=== PATIENT | male | born 1945 | race Caucasian/White ===

== ENCOUNTER 2018-05-03 15:57 | Emergency (ER) | payer MEDICARE, OTHER, SELFPAY ==
[2018-05-03 16:30] VITALS: BP 155/87; PULSE 76; RESP 16; TEMP 36.2; O2SAT 98
--- NOTE | 2018-05-03 19:52 | ED.GIBLEED ---
HPI - GI Bleed General Chief complaint: GI Bleed Stated complaint: RECTAL BLEEDING Time Seen by Provider: 05/03/18 16:09 Source: patient and family Mode of arrival: ambulatory Limitations: no limitations History of Present Illness HPI Narrative: 72-year-old male with history of GI bleed due to diverticulosis presents to the emergency department with his for evaluation of rectal bleed. The patient started developing bright red blood around his stool few days ago in the absence of pain. He does not take blood thinners. He called his sewage plant supervisor who recommended a transition to a clear liquid diet, stating this would likely help symptoms improved. He has developed an increasing amount of liquidy stool and had increased bright red blood per rectum over the course of the day. He contacted his sewage plant supervisor whom instructed him to present to the closest emergency department. He continues to deny any pain, shortness of breath or dizziness but does feel a bit fuzzy and lightheaded. Related Data Previous Rx's Medication Instructions Recorded ezetimibe [Zetia] 10 mg PO QDAY #90 tab 03/23/17 metoprolol succinate [Toprol XL] 50 mg PO QDAY #90 tab 04/17/17 perphenazine-amitriptyline 1 tab PO BID #100 tab 04/30/17 pravastatin [Pravachol] 40 mg PO HS #90 tab 05/10/17 pantoprazole [Protonix] 40 mg PO BID 30 Days #60 tab 05/03/18 Allergies Allergy/AdvReac Type Severity Reaction Status Date / Time rosuvastatin [ROSUVASTATIN] Allergy Unknown MYALGIAS Verified 05/03/18 16:35 Review of Systems Review of Systems All systems reviewed & are unremarkable except as noted in HPI and below Constitutional Denies chills, Denies fever(s), Denies lethargy and Denies weakness Eyes Denies change in vision, Denies eye discharge, Denies irritation and Denies loss of vision ENT Ears, Nose, Mouth, and Throat: Denies change in voice, Denies neck pain and Denies sore throat Cardiovascular Denies chest pain, Denies irregular heart rhythm, Denies lightheadedness, Denies palpitations, Denies dyspnea, Denies dyspnea on exertion and Denies orthopnea Respiratory Denies cough, Denies dyspnea, Denies dyspnea on exertion and Denies wheezing Gastrointestinal Gastrointestinal: Denies abdominal pain, Reports hematochezia, Denies change in bowel habits, Denies diarrhea, Denies nausea and Denies vomiting Genitourinary Denies hematuria, Denies flank pain, Denies urinary incontinence and Denies urinary urgency Musculoskeletal Denies neck pain Integumentary/Breasts Denies pruritus, Denies erythema, Denies rash and Denies wounds Neurologic Denies confusion, Denies loss of vision and Denies weakness Psychiatric Denies anxiety, Denies confusion, Denies depression, Denies homicidal ideation and Denies suicidal ideation Endocrine Denies palpitations Hematologic/Lymphatic Denies easy bruising Allergic/Immunologic Denies wheezing [facility] Medical History Aortic valve insufficiency (Acute) Depression (Acute) Diverticulosis (Acute) High cholesterol (Acute) Social History Smoking Status: Never smoker Exam Narrative Exam Narrative: 72-year-old male resting comfortably in no obvious distress Initial Vital Signs Initial Vital Signs: Vital Signs Temperature 97.1 F L 05/03/18 16:30 Pulse Rate 76 05/03/18 16:30 Respiratory Rate 16 05/03/18 16:30 Blood Pressure 155/87 H 05/03/18 16:30 Pulse Oximetry 98 05/03/18 16:30 Const General: cooperative and well developed Nutritional Appearance: well nourished Orientation: alert, awake, oriented x3 and not confused [facility] Head: normocephalic and atraumatic Ears: external ears normal and TM's normal bilaterally Nose: external nose normal and No nasal discharge Face and sinus: sinuses nontender, face symmetric, no sinus tenderness and No dry mucous membranes Mouth: oral mucosae normal and moist mucous membranes Teeth and gingiva: dentition normal Throat: tonsils normal and uvula midline Eyes General: appearance normal, both eyes and all related structures Eyelids: eyelids normal Conjunctivae: conjunctivae normal Sclera: sclerae normal Pupils: PERRL EOM: EOM intact bilaterally Neck Neck: normal visual inspection, trachea midline, No lymphadenopathy, No midline deformity and No JVD Lymphatic: No lymphedema Chest Chest: normal inspection of the chest Resp Effort & Inspection: normal respiratory effort, able to speak in complete sentences, no respiratory distress and no use of accessory muscles Auscultation: clear to auscultation bilaterally, no rales, no rhonchi and no wheezes Cardio Rate: regular rate Rhythm: regular rhythm Heart Sounds: no click, no gallops, no murmurs and no rubs Pulses: normal peripheral pulses GI Inspection: non-distended Palpation: soft, no hepatosplenomegaly, No guarding, No pulsatile mass and No tender Auscultation: normal bowel sounds Rectal Exam: heme positive stool Back/Spine/Pelvis Back: No CVA tenderness Cervical Spine: cervical ROM normal and No pain with cervical ROM Thoracic/Lumbar Spine: thoracic and lumbar spine normal to inspection Skin General: no rashes or lesions noted, No jaundice and No petechiae Neuro General: alert, oriented x3, gait normal and no focal motor deficits Speech: speech normal Extrem General: full ROM, no clubbing, cyanosis or edema, no pedal edema and no calf tenderness Psych Appearance: well kempt Mental Status: mental status grossly normal Attitude: cooperative Thought Content: normal and suicidality Judgment: judgment good Course Orders Ordered: ED Orders 05/03/18 20:22 Complete Blood Count AUTO DIFF Stat Comprehensive Metabolic Panel Stat Partial Thromboplastin Time Stat Prothrombin Time INR Stat Type and Screen Stat Discontinued Medications Ondansetron HCl (Zofran) 4 mg IV NOW ONE Stop: 05/03/18 20:11 Last Admin: 05/03/18 20:30 Dose: 4 mg Pantoprazole Sodium (Protonix) 40 mg IV NOW ONE Stop: 05/03/18 20:11 Last Admin: 05/03/18 20:30 Dose: 40 mg Reevaluation(s) Reevaluation #1: Patient continues to be asymptomatic and department and denies dizziness, weakness or lightheadedness. Vital Signs - 8 hr 05/03/18 20:55 05/03/18 21:29 05/03/18 21:30 Pulse Rate 71 73 71 Respiratory Rate 12 11 L 12 Blood Pressure [Right Arm] 161/79 H 161/79 H 150/80 H Pulse Oximetry 96 94 94 05/03/18 22:30 Pulse Rate 71 Respiratory Rate 14 Blood Pressure [Right Arm] 150/85 H Pulse Oximetry 95 MDM - GI Bleed Differential Diagnosis Likely Chandrika-Rdz syndrome, Upper gastrointestinal hemorrhage, Lower gastrointestinal hemorrhage and hematochezia Medical Records Attestation: I reviewed the patient's medical records. Lab Data Result diagrams: 05/03/18 20:22 08/24/18 20:22 Lab Results 05/03/18 05/03/18 05/03/18 Range/Units 20:22 20:22 20:22 WBC 5.6 (4.5-11.0) X10^3/uL RBC 4.55 (4.5-5.9) X10^6/uL Hgb 14.0 (13.5-17.5) g/dL Hct 40.4 L (41-53) % MCV 88.8 (80-100) fL MCH 30.6 (26-34) PG MCHC 34.5 (30-36) % RDW 13.1 (11.6-14.8) % Plt Count 225 (150-400) X10^3/uL Neut % (Auto) 55.2 (50-75) % Lymph % (Auto) 30.0 (25-40) % [place] % (Auto) 11.2 (3-14) % Eos % (Auto) 2.7 (2-4) % Baso % (Auto) 0.9 (0-2) % Neut # (Auto) 3100 (6445-2381) /uL PT 11.9 (10.1-12.7) SECONDS INR 1.1 (0.9-1.3) APTT 30 (26.4-36.2) SECONDS Sodium 143 (137-145) mmol/L Potassium 3.8 (3.4-5.1) mmol/L Chloride 104 (98-107) mmol/L Carbon Dioxide 30 (22-32) mmol/L BUN 14 (9-20) mg/dL Creatinine 0.90 (0.66-1.25) mg/dL Estimated GFR > 60.0 (>60) mL/min BUN/Creatinine Ratio 15.6 (6-22) Glucose 105 (80-110) mg/dL Calcium 9.0 (8.4-10.2) mg/dL Total Bilirubin 0.7 (0.2-1.3) mg/dL AST 34 (17-59) IU/L ALT 41 (21-72) IU/L Alkaline Phosphatase 57 (38-126) U/L Total Protein 6.5 (6.3-8.2) g/dL Albumin 4.0 (3.5-5.0) g/dL Globulin 2.5 (1.7-4.1) g/dL Albumin/Globulin Ratio 1.6 (1.0-2.8) Blood Type Antibody Screen 05/03/18 Range/Units 20:22 WBC (4.5-11.0) X10^3/uL RBC (4.5-5.9) X10^6/uL Hgb (13.5-17.5) g/dL Hct (41-53) % MCV (80-100) fL MCH (26-34) PG MCHC (30-36) % RDW (11.6-14.8) % Plt Count (150-400) X10^3/uL Neut % (Auto) (50-75) % Lymph % (Auto) (25-40) % [place] % (Auto) (3-14) % Eos % (Auto) (2-4) % Baso % (Auto) (0-2) % Neut # (Auto) (9668-6088) /uL PT (10.1-12.7) SECONDS INR (0.9-1.3) APTT (26.4-36.2) SECONDS Sodium (137-145) mmol/L Potassium (3.4-5.1) mmol/L Chloride (98-107) mmol/L Carbon Dioxide (22-32) mmol/L BUN (9-20) mg/dL Creatinine (0.66-1.25) mg/dL Estimated GFR (>60) mL/min BUN/Creatinine Ratio (6-22) Glucose (80-110) mg/dL Calcium (8.4-10.2) mg/dL Total Bilirubin (0.2-1.3) mg/dL AST (17-59) IU/L ALT (21-72) IU/L Alkaline Phosphatase (38-126) U/L Total Protein (6.3-8.2) g/dL Albumin (3.5-5.0) g/dL Globulin (1.7-4.1) g/dL Albumin/Globulin Ratio (1.0-2.8) Blood Type A Positive Antibody Screen Negative [facility] Narrative Medical decision making narrative: Patient presents with painless rectal bleeding. He has had bleeding for 3 days and denies systemic symptoms such as dizziness, weakness, lightheadedness or shortness of breath. His H&H is stable and vital signs are stable. He has an established relationship with a sewage plant supervisor and follow-up with this physician is reasonable Discharge Plan Departure Patient Disposition: Home Clinical Impression: Acute gastrointestinal bleeding Discharge Date/Time: 05/03/18 22:56 Interventions: ED Discharge Assessment Last Done: 05/03/18 23:35 Instructions: DI for Rectal Bleeding Activity Restrictions/Additional Instructions: 1. Drink plenty of fluids with frequent small sips. 2. For the next 24 hours a clear liquid diet is advised. After that please employ a brat diet which would include bananas, rice, apples, toast. 3. Please take medications as directed. 4. Please follow-up with your sewage plant supervisor early next week. Call the office for an appointment, and let them know your in the emergency department so 5. Please return to the emergency Department for any worsening or persistent symptoms, such as increasing pain or fever. Prescriptions: New pantoprazole [Protonix] 40 mg tablet,delayed release (DR/EC) 40 mg PO BID 30 Days Qty: 60 RF: 0 No Action ezetimibe [Zetia] 10 MG tablet 10 mg PO QDAY Qty: 90 RF: 1 metoprolol succinate [Toprol XL] 50 MG tablet extended release 24 hr 50 mg PO QDAY Qty: 90 RF: 0 perphenazine-amitriptyline 2 MG/25 MG tablet 1 tab PO BID Qty: 100 RF: 0 pravastatin [Pravachol] 40 MG tablet 40 mg PO HS Qty: 90 RF: 0 Referrals: Joseph Can MD [Primary Care Provider] -
[2018-05-03] MEDS: PANTOPRAZOLE 40 MG VIAL IV (20:30)
[2018-05-03] MEDS: ONDANSETRON 4 MG/2 ML INJ IV (20:30)
[2018-05-03 20:36] LABS: Add Manual Diff / Slide Review NO; Basophils Percent Auto 0.9 % (0-2); Eosinophils Percent Auto 2.7 % (2-4); Hematocrit 40.4 % (41-53); Mean Corpuscular HGB Conc 34.5 % (30-36); Mean Corpuscular Hemoglobin 30.6 PG (26-34); Mean Corpuscular Volume 88.8 fL (80-100); Monocytes Percent Auto 11.2 % (3-14); Neutrophils Absolute Auto 3100 /uL (3000-5900); Neutrophils Percent Auto 55.2 % (50-75); Platelet Count 225 X10^3/uL (150-400); Red Blood Cell Count 4.55 X10^6/uL (4.5-5.9); Red Cell Distribution Width 13.1 % (11.6-14.8); White Blood Cell Count 5.6 X10^3/uL (4.5-11.0)
[2018-05-03 20:41] LABS: INR 1.1 (0.9-1.3); Prothrombin Time 11.9 SECONDS (10.1-12.7)
[2018-05-03 20:44] LABS: PTT Partial Thromboplastin Tim 30 SECONDS (26.4-36.2)
[2018-05-03 20:45] LABS: Alanine Aminotransferase 41 IU/L (21-72); Albumin Globulin Ratio 1.6 (1.0-2.8); Alkaline Phosphatase 57 U/L (38-126); Aspartate Aminotransferase 34 IU/L (17-59); BUN Creatinine Ratio 15.6 (6-22); Bilirubin Total 0.7 mg/dL (0.2-1.3); Blood Urea Nitrogen 14 mg/dL (9-20); Carbon Dioxide 30 mmol/L (22-32); Chloride 104 mmol/L (98-107); Estimated Glomerular Filt Rate > 60.0 mL/min (>60); Globulin 2.5 g/dL (1.7-4.1); Glucose 105 mg/dL (80-110); HEMOLYSIS < 15 (0-50); Potassium 3.8 mmol/L (3.4-5.1); Sodium 143 mmol/L (137-145); Total Protein 6.5 g/dL (6.3-8.2)
[2018-05-03 20:55] VITALS: BP 161/79; PULSE 71; RESP 12; O2SAT 96
--- NOTE | 2018-05-03 21:10 | ED_ITS ---
HPI - GI Bleed General Chief complaint: GI Bleed Stated complaint: RECTAL BLEEDING Time Seen by Provider: 05/03/18 16:09 Source: patient and family Mode of arrival: ambulatory Limitations: no limitations History of Present Illness HPI Narrative: 72-year-old male with history of GI bleed due to diverticulosis presents to the emergency department with his for evaluation of rectal bleed. The patient started developing bright red blood around his stool few days ago in the absence of pain. He does not take blood thinners. He called his reservoir engineering consultant who recommended a transition to a clear liquid diet, stating this would likely help symptoms improved. He has developed an increasing amount of liquidy stool and had increased bright red blood per rectum over the course of the day. He contacted his reservoir engineering consultant whom instructed him to present to the closest emergency department. He continues to deny any pain, shortness of breath or dizziness but does feel a bit fuzzy and lightheaded. Related Data Previous Rx's Medication Instructions Recorded ezetimibe [Zetia] 10 mg PO QDAY #90 tab 03/23/17 metoprolol succinate [Toprol XL] 50 mg PO QDAY #90 tab 04/17/17 perphenazine-amitriptyline 1 tab PO BID #100 tab 04/30/17 pravastatin [Pravachol] 40 mg PO HS #90 tab 05/10/17 pantoprazole [Protonix] 40 mg PO BID 30 Days #60 tab 05/03/18 Allergies Allergy/AdvReac Type Severity Reaction Status Date / Time rosuvastatin [ROSUVASTATIN] Allergy Unknown MYALGIAS Verified 05/03/18 16:35 Review of Systems Review of Systems All systems reviewed & are unremarkable except as noted in HPI and below Constitutional Denies chills, Denies fever(s), Denies lethargy and Denies weakness Eyes Denies change in vision, Denies eye discharge, Denies irritation and Denies loss of vision ENT Ears, Nose, Mouth, and Throat: Denies change in voice, Denies neck pain and Denies sore throat Cardiovascular Denies chest pain, Denies irregular heart rhythm, Denies lightheadedness, Denies palpitations, Denies dyspnea, Denies dyspnea on exertion and Denies orthopnea Respiratory Denies cough, Denies dyspnea, Denies dyspnea on exertion and Denies wheezing Gastrointestinal Gastrointestinal: Denies abdominal pain, Reports hematochezia, Denies change in bowel habits, Denies diarrhea, Denies nausea and Denies vomiting Genitourinary Denies hematuria, Denies flank pain, Denies urinary incontinence and Denies urinary urgency Musculoskeletal Denies neck pain Integumentary/Breasts Denies pruritus, Denies erythema, Denies rash and Denies wounds Neurologic Denies confusion, Denies loss of vision and Denies weakness Psychiatric Denies anxiety, Denies confusion, Denies depression, Denies homicidal ideation and Denies suicidal ideation Endocrine Denies palpitations Hematologic/Lymphatic Denies easy bruising Allergic/Immunologic Denies wheezing [facility] Medical History Aortic valve insufficiency (Acute) Depression (Acute) Diverticulosis (Acute) High cholesterol (Acute) Social History Smoking Status: Never smoker Exam Narrative Exam Narrative: 72-year-old male resting comfortably in no obvious distress Initial Vital Signs Initial Vital Signs: Vital Signs Temperature 97.1 F L 05/03/18 16:30 Pulse Rate 76 05/03/18 16:30 Respiratory Rate 16 05/03/18 16:30 Blood Pressure 155/87 H 05/03/18 16:30 Pulse Oximetry 98 05/03/18 16:30 Const General: cooperative and well developed Nutritional Appearance: well nourished Orientation: alert, awake, oriented x3 and not confused [facility] Head: normocephalic and atraumatic Ears: external ears normal and TM's normal bilaterally Nose: external nose normal and No nasal discharge Face and sinus: sinuses nontender, face symmetric, no sinus tenderness and No dry mucous membranes Mouth: oral mucosae normal and moist mucous membranes Teeth and gingiva: dentition normal Throat: tonsils normal and uvula midline Eyes General: appearance normal, both eyes and all related structures Eyelids: eyelids normal Conjunctivae: conjunctivae normal Sclera: sclerae normal Pupils: PERRL EOM: EOM intact bilaterally Neck Neck: normal visual inspection, trachea midline, No lymphadenopathy, No midline deformity and No JVD Lymphatic: No lymphedema Chest Chest: normal inspection of the chest Resp Effort & Inspection: normal respiratory effort, able to speak in complete sentences, no respiratory distress and no use of accessory muscles Auscultation: clear to auscultation bilaterally, no rales, no rhonchi and no wheezes Cardio Rate: regular rate Rhythm: regular rhythm Heart Sounds: no click, no gallops, no murmurs and no rubs Pulses: normal peripheral pulses GI Inspection: non-distended Palpation: soft, no hepatosplenomegaly, No guarding, No pulsatile mass and No tender Auscultation: normal bowel sounds Rectal Exam: heme positive stool Back/Spine/Pelvis Back: No CVA tenderness Cervical Spine: cervical ROM normal and No pain with cervical ROM Thoracic/Lumbar Spine: thoracic and lumbar spine normal to inspection Skin General: no rashes or lesions noted, No jaundice and No petechiae Neuro General: alert, oriented x3, gait normal and no focal motor deficits Speech: speech normal Extrem General: full ROM, no clubbing, cyanosis or edema, no pedal edema and no calf tenderness Psych Appearance: well kempt Mental Status: mental status grossly normal Attitude: cooperative Thought Content: normal and suicidality Judgment: judgment good Course Orders Ordered: ED Orders 05/03/18 20:22 Complete Blood Count AUTO DIFF Stat Comprehensive Metabolic Panel Stat Partial Thromboplastin Time Stat Prothrombin Time INR Stat Type and Screen Stat Discontinued Medications Ondansetron HCl (Zofran) 4 mg IV NOW ONE Stop: 05/03/18 20:11 Last Admin: 05/03/18 20:30 Dose: 4 mg Pantoprazole Sodium (Protonix) 40 mg IV NOW ONE Stop: 05/03/18 20:11 Last Admin: 05/03/18 20:30 Dose: 40 mg Reevaluation(s) Reevaluation #1: Patient continues to be asymptomatic and department and denies dizziness, weakness or lightheadedness. Vital Signs - 8 hr 05/03/18 20:55 05/03/18 21:29 05/03/18 21:30 Pulse Rate 71 73 71 Respiratory Rate 12 11 L 12 Blood Pressure [Right Arm] 161/79 H 161/79 H 150/80 H Pulse Oximetry 96 94 94 05/03/18 22:30 Pulse Rate 71 Respiratory Rate 14 Blood Pressure [Right Arm] 150/85 H Pulse Oximetry 95 MDM - GI Bleed Differential Diagnosis Likely Chandrika-Rdz syndrome, Upper gastrointestinal hemorrhage, Lower gastrointestinal hemorrhage and hematochezia Medical Records Attestation: I reviewed the patient's medical records. Lab Data Result diagrams: 05/03/18 20:22 08/24/18 20:22 Lab Results 05/03/18 05/03/18 05/03/18 Range/Units 20:22 20:22 20:22 WBC 5.6 (4.5-11.0) X10^3/uL RBC 4.55 (4.5-5.9) X10^6/uL Hgb 14.0 (13.5-17.5) g/dL Hct 40.4 L (41-53) % MCV 88.8 (80-100) fL MCH 30.6 (26-34) PG MCHC 34.5 (30-36) % RDW 13.1 (11.6-14.8) % Plt Count 225 (150-400) X10^3/uL Neut % (Auto) 55.2 (50-75) % Lymph % (Auto) 30.0 (25-40) % [place] % (Auto) 11.2 (3-14) % Eos % (Auto) 2.7 (2-4) % Baso % (Auto) 0.9 (0-2) % Neut # (Auto) 3100 (6725-8853) /uL PT 11.9 (10.1-12.7) SECONDS INR 1.1 (0.9-1.3) APTT 30 (26.4-36.2) SECONDS Sodium 143 (137-145) mmol/L Potassium 3.8 (3.4-5.1) mmol/L Chloride 104 (98-107) mmol/L Carbon Dioxide 30 (22-32) mmol/L BUN 14 (9-20) mg/dL Creatinine 0.90 (0.66-1.25) mg/dL Estimated GFR > 60.0 (>60) mL/min BUN/Creatinine Ratio 15.6 (6-22) Glucose 105 (80-110) mg/dL Calcium 9.0 (8.4-10.2) mg/dL Total Bilirubin 0.7 (0.2-1.3) mg/dL AST 34 (17-59) IU/L ALT 41 (21-72) IU/L Alkaline Phosphatase 57 (38-126) U/L Total Protein 6.5 (6.3-8.2) g/dL Albumin 4.0 (3.5-5.0) g/dL Globulin 2.5 (1.7-4.1) g/dL Albumin/Globulin Ratio 1.6 (1.0-2.8) Blood Type Antibody Screen 05/03/18 Range/Units 20:22 WBC (4.5-11.0) X10^3/uL RBC (4.5-5.9) X10^6/uL Hgb (13.5-17.5) g/dL Hct (41-53) % MCV (80-100) fL MCH (26-34) PG MCHC (30-36) % RDW (11.6-14.8) % Plt Count (150-400) X10^3/uL Neut % (Auto) (50-75) % Lymph % (Auto) (25-40) % [place] % (Auto) (3-14) % Eos % (Auto) (2-4) % Baso % (Auto) (0-2) % Neut # (Auto) (0168-9792) /uL PT (10.1-12.7) SECONDS INR (0.9-1.3) APTT (26.4-36.2) SECONDS Sodium (137-145) mmol/L Potassium (3.4-5.1) mmol/L Chloride (98-107) mmol/L Carbon Dioxide (22-32) mmol/L BUN (9-20) mg/dL Creatinine (0.66-1.25) mg/dL Estimated GFR (>60) mL/min BUN/Creatinine Ratio (6-22) Glucose (80-110) mg/dL Calcium (8.4-10.2) mg/dL Total Bilirubin (0.2-1.3) mg/dL AST (17-59) IU/L ALT (21-72) IU/L Alkaline Phosphatase (38-126) U/L Total Protein (6.3-8.2) g/dL Albumin (3.5-5.0) g/dL Globulin (1.7-4.1) g/dL Albumin/Globulin Ratio (1.0-2.8) Blood Type A Positive Antibody Screen Negative [facility] Narrative Medical decision making narrative: Patient presents with painless rectal bleeding. He has had bleeding for 3 days and denies systemic symptoms such as dizziness, weakness, lightheadedness or shortness of breath. His H&H is stable and vital signs are stable. He has an established relationship with a reservoir engineering consultant and follow-up with this physician is reasonable Discharge Plan Departure Patient Disposition: Home Clinical Impression: Acute gastrointestinal bleeding Discharge Date/Time: 05/03/18 22:56 Interventions: ED Discharge Assessment Last Done: 05/03/18 23:35 Instructions: DI for Rectal Bleeding Activity Restrictions/Additional Instructions: 1. Drink plenty of fluids with frequent small sips. 2. For the next 24 hours a clear liquid diet is advised. After that please employ a brat diet which would include bananas, rice, apples, toast. 3. Please take medications as directed. 4. Please follow-up with your reservoir engineering consultant early next week. Call the office for an appointment, and let them know your in the emergency department so 5. Please return to the emergency Department for any worsening or persistent symptoms, such as increasing pain or fever. Prescriptions: New pantoprazole [Protonix] 40 mg tablet,delayed release (DR/EC) 40 mg PO BID 30 Days Qty: 60 RF: 0 No Action ezetimibe [Zetia] 10 MG tablet 10 mg PO QDAY Qty: 90 RF: 1 metoprolol succinate [Toprol XL] 50 MG tablet extended release 24 hr 50 mg PO QDAY Qty: 90 RF: 0 perphenazine-amitriptyline 2 MG/25 MG tablet 1 tab PO BID Qty: 100 RF: 0 pravastatin [Pravachol] 40 MG tablet 40 mg PO HS Qty: 90 RF: 0 Referrals: Joseph Can MD [Primary Care Provider] -
[2018-05-03 21:29] VITALS: BP 161/79; PULSE 73; RESP 11; O2SAT 94
[2018-05-03 21:30] VITALS: BP 150/80; PULSE 71; RESP 12; O2SAT 94
--- NOTE | 2018-05-03 22:02 | PC.NURSE ---
pt has a history of diverticulosis. noticed blood streaked stool three days ago. stopped asparin, started clear liquid diet. noticed stool changed to black and is now laila red blood. pt denies: dizzyness, N/V, changes in medications, pain. pt reports this is like last time.
[2018-05-03 22:30] VITALS: BP 150/85; PULSE 71; RESP 14; O2SAT 95
== END 2018-05-03 22:56 | disposition home or self-care (01) ==
PROVIDERS: Emergency Provider Emergency Medicine; Family Provider Family Medicine; PCP Family Medicine
DX: K92.2 Gastrointestinal hemorrhage, unspecified (principal)
CPT/HCPCS: 36591; 80053; 85025; 85610; 85730; 86850; 86900; 86901; 96374; 96375; 99283; 99284; C9113; J2405

== ENCOUNTER 2018-07-22 18:09 | Emergency (ER) | payer MEDICARE, OTHER, SELFPAY ==
[2018-07-22 18:13] VITALS: BP 194/91; PULSE 88; RESP 14; TEMP 36.7; O2SAT 100; BMI 26.9
--- NOTE | 2018-07-22 19:31 | ED_ITS ---
HPI - GI Bleed General Chief complaint: GI Bleed Stated complaint: RECTAL BLEEDING Time Seen by Provider: 07/22/18 19:14 Source: patient Mode of arrival: ambulatory Limitations: no limitations History of Present Illness HPI Narrative: This is a 73-year-old male comes to the emergency department with complaint of rectal bleeding. Patient states it started today he has had 3 episodes with bowel movements. He states the bowel movements are formed but soft he has not had any abdominal pain, he has not had any lightheadedness, he has had some slight nausea but no vomiting. Patient is not any chest pain or shortness of breath. He has had similar episodes before. They suspected his bleeding was secondary to diverticulosis in the past. 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 They suggested he come to the ER for evaluation. Patient states that see has not had any fevers. He states that he saw blood in the toilet bowl as well as in the stool. He states that his watch inspector final movement thought perhaps he had a hemorrhoid that was bleeding. Patient does states he takes aspirin but does not take any other blood thinners. He takes metoprolol for blood pressure, statin for cholesterol. He has aortic stenosis and is planning to have a TAVR in the next week at [facility]. He has not had any other prior surgeries. Related Data Previous Rx's Medication Instructions Recorded ezetimibe [Zetia] 10 mg PO QDAY #90 tab 03/23/17 metoprolol succinate [Toprol XL] 50 mg PO QDAY #90 tab 04/17/17 perphenazine-amitriptyline 1 tab PO BID #100 tab 04/30/17 pravastatin [Pravachol] 40 mg PO HS #90 tab 05/10/17 pantoprazole [Protonix] 40 mg PO DAILY #30 tab 07/22/18 Allergies Allergy/AdvReac Type Severity Reaction Status Date / Time rosuvastatin [ROSUVASTATIN] Allergy Unknown MYALGIAS Verified 07/22/18 18:13 Review of Systems Review of Systems All systems reviewed & are unremarkable except as noted in HPI and below Constitutional Denies chills, Denies fever(s) and Denies malaise Cardiovascular Denies chest pain, Denies lightheadedness, Denies palpitations and Denies dyspnea Respiratory Denies dyspnea Gastrointestinal Gastrointestinal: Denies abdominal pain, Denies melena, Reports hematochezia, Denies change in bowel habits, Denies tenesmus, Denies constipation, Denies cramping, Denies diarrhea, Denies nausea and Denies vomiting Genitourinary Denies difficulty urinating Endocrine Denies palpitations [facility] Medical History Aortic valve insufficiency (Acute) Depression (Acute) Diverticulosis (Acute) High cholesterol (Acute) Social History Smoking Status: Never smoker alcohol intake: current substance use type: does not use Exam Narrative Exam Narrative: GENERAL: Alert and oriented x three, thin, well-appearing elderly male in no acute distress. HEENT: Head normocephalic, atraumatic, EOMI, pupils reactive, face symmetric, moist mucous membranes NECK: Supple, full range of motion CARDIOVASCULAR: Regular rate and rhythm without murmurs, rubs or gallops. RESPIRATORY: Breath sounds equal bilaterally, no wheezes rales or rhonchi. ABDOMEN: Soft, nontender. Normoactive bowel sounds all 4 quadrants. No guarding or rebound, rigidity, no mass, patient is Hemoccult positive with a small amount of bright red blood on rectal exam. There are no external hemorrhoids noted, I do not note any internal hemorrhoids with palpation. : No CVA tenderness EXTREMITIES: Normal range of motion, no clubbing or edema. Neurovascularly intact NEUROLOGICAL: Cranial nerves II through XII grossly intact. Moving all extremities SKIN: Warm, dry, no petechiae, no rashes or lesions. Initial Vital Signs Initial Vital Signs: Vital Signs Temperature 98.1 F 07/22/18 18:13 Pulse Rate 88 07/22/18 18:13 Respiratory Rate 14 07/22/18 18:13 Blood Pressure 194/91 H 07/22/18 18:13 Pulse Oximetry 100 07/22/18 18:13 Course Orders Ordered: ED Orders 07/22/18 19:33 Complete Blood Count AUTO DIFF Stat Comprehensive Metabolic Panel Stat Partial Thromboplastin Time Stat Prothrombin Time INR Stat Type and Screen Stat Discontinued Medications Sodium Chloride (Normal Saline 0.9%) 1,000 mls @ 1,000 mls/hr IV BOLUS ONE Stop: 07/22/18 20:00 Last Admin: 07/22/18 20:33 Dose: Not Given Sodium Chloride (Normal Saline 0.9%) 1,000 mls @ 1,000 mls/hr IV BOLUS ONE Stop: 07/22/18 20:25 Last Infusion: 07/22/18 20:33 Dose: 0 mls/hr Admin: 07/22/18 20:11 Dose: 1,000 mls/hr Ondansetron HCl (Zofran) 4 mg IV NOW ONE Stop: 07/22/18 19:27 Last Admin: 07/22/18 20:11 Dose: 4 mg Pantoprazole Sodium (Protonix) 40 mg IV NOW ONE Stop: 07/22/18 19:27 Last Admin: 07/22/18 20:11 Dose: 40 mg Vital Signs - 8 hr 07/22/18 18:13 07/22/18 20:09 07/22/18 20:26 Temperature 98.1 F Pulse Rate 88 70 77 Respiratory Rate 14 15 16 Blood Pressure 194/91 H 168/78 H Blood Pressure [Left Arm] 168/78 H Pulse Oximetry 100 94 MDM - GI Bleed Lab Data Attestation: I reviewed the patient's lab results. Result diagrams: 07/22/18 19:33 07/22/18 19:33 Lab Results 07/22/18 07/22/18 07/22/18 Range/Units 19:33 19:33 19:33 WBC 6.2 (4.5-11.0) X10^3/uL RBC 4.79 (4.5-5.9) X10^6/uL Hgb 14.3 (13.5-17.5) g/dL Hct 41.7 (41-53) % MCV 87.0 (80-100) fL MCH 29.8 (26-34) PG MCHC 34.2 (30-36) % RDW 12.8 (11.6-14.8) % Plt Count 245 (150-400) X10^3/uL Neut % (Auto) 54.6 (50-75) % Lymph % (Auto) 29.3 (25-40) % Ramsey % (Auto) 11.9 (3-14) % Eos % (Auto) 3.2 (2-4) % Baso % (Auto) 1.0 (0-2) % Neut # (Auto) 3400 (2863-4838) /uL PT 11.7 (10.1-12.7) SECONDS INR 1.1 (0.9-1.3) APTT 30 (26.4-36.2) SECONDS Sodium 142 (137-145) mmol/L Potassium 4.0 (3.4-5.1) mmol/L Chloride 103 (98-107) mmol/L Carbon Dioxide 28 (22-32) mmol/L BUN 15 (9-20) mg/dL Creatinine 0.90 (0.66-1.25) mg/dL Estimated GFR > 60.0 (>60) mL/min BUN/Creatinine Ratio 16.7 (6-22) Glucose 100 (80-110) mg/dL Calcium 9.2 (8.4-10.2) mg/dL Total Bilirubin 0.5 (0.2-1.3) mg/dL AST 30 (17-59) IU/L ALT 36 (21-72) IU/L Alkaline Phosphatase 55 (38-126) U/L Total Protein 6.8 (6.3-8.2) g/dL Albumin 4.0 (3.5-5.0) g/dL Globulin 2.8 (1.7-4.1) g/dL Albumin/Globulin Ratio 1.4 (1.0-2.8) Blood Type Antibody Screen 07/22/18 Range/Units 19:33 WBC (4.5-11.0) X10^3/uL RBC (4.5-5.9) X10^6/uL Hgb (13.5-17.5) g/dL Hct (41-53) % MCV (80-100) fL MCH (26-34) PG MCHC (30-36) % RDW (11.6-14.8) % Plt Count (150-400) X10^3/uL Neut % (Auto) (50-75) % Lymph % (Auto) (25-40) % Ramsey % (Auto) (3-14) % Eos % (Auto) (2-4) % Baso % (Auto) (0-2) % Neut # (Auto) (6915-4347) /uL PT (10.1-12.7) SECONDS INR (0.9-1.3) APTT (26.4-36.2) SECONDS Sodium (137-145) mmol/L Potassium (3.4-5.1) mmol/L Chloride (98-107) mmol/L Carbon Dioxide (22-32) mmol/L BUN (9-20) mg/dL Creatinine (0.66-1.25) mg/dL Estimated GFR (>60) mL/min BUN/Creatinine Ratio (6-22) Glucose (80-110) mg/dL Calcium (8.4-10.2) mg/dL Total Bilirubin (0.2-1.3) mg/dL AST (17-59) IU/L ALT (21-72) IU/L Alkaline Phosphatase (38-126) U/L Total Protein (6.3-8.2) g/dL Albumin (3.5-5.0) g/dL Globulin (1.7-4.1) g/dL Albumin/Globulin Ratio (1.0-2.8) Blood Type A Positive Antibody Screen Negative Point of Care Testing Stool Occult Blood Positive MDM Narrative Medical decision making narrative: Patient has been seen for similar prior he was treated with Protonix on his last visit. We did discuss as he has had a history of diverticulosis and he describes having diverticulitis causing his bleeding potentially getting a CT. At this time he prefers to defer Um is his symptoms are very similar to his last visit and if his bleeding improved with fluids and lab work is stable as long with vital signs will likely follow up with Gastroenterology. Recheck and patient's labs show no acute changes, no drop in hemoglobin, vitals are stable and appropriate. Patient has follow up with gastroentrology and plan for continue with protonix and follow up. I was unable to palpate and hemorrhoid on exam and would suspect bleeding if from prior diveritculosis but patient should have follow up and repeat scope. Also told to discuss with his surgical team as he is scheduled for TAVR next week. Discharge Plan Departure Patient Disposition: Home Clinical Impression: Acute GI bleeding Discharge Date/Time: 07/22/18 20:32 Interventions: ED Discharge Assessment Last Done: 07/22/18 20:26 Instructions: Gastrointestinal Bleeding Activity Restrictions/Additional Instructions: Follow-up with your physician in the next 2-3 days for recheck. Call for an appointment. Also call to let your surgical team no about the symptoms are currently having. You may continue your home medications as prescribed. Take medications as prescribed. Return to the emergency department for persistent bleeding, rapidly increasing, lightheadedness, passing out, chest pain or shortness of breath, new abdominal pain, back or flank pain or other new or concerning symptoms. Prescriptions: New pantoprazole [Protonix] 40 mg tablet,delayed release (DR/EC) 40 mg PO DAILY Qty: 30 RF: 0 No Action ezetimibe [Zetia] 10 MG tablet 10 mg PO QDAY Qty: 90 RF: 1 metoprolol succinate [Toprol XL] 50 MG tablet extended release 24 hr 50 mg PO QDAY Qty: 90 RF: 0 perphenazine-amitriptyline 2 MG/25 MG tablet 1 tab PO BID Qty: 100 RF: 0 pravastatin [Pravachol] 40 MG tablet 40 mg PO HS Qty: 90 RF: 0 Referrals: Joseph Can MD [Primary Care Provider] -
[2018-07-22 19:47] LABS: Add Manual Diff / Slide Review NO; Eosinophils Percent Auto 3.2 % (2-4); Hematocrit 41.7 % (41-53); Hemoglobin 14.3 g/dL (13.5-17.5); Lymphocytes Percent Auto 29.3 % (25-40); Mean Corpuscular HGB Conc 34.2 % (30-36); Mean Corpuscular Hemoglobin 29.8 PG (26-34); Monocytes Percent Auto 11.9 % (3-14); Neutrophils Absolute Auto 3400 /uL (3000-5900); Neutrophils Percent Auto 54.6 % (50-75); Platelet Count 245 X10^3/uL (150-400); Red Blood Cell Count 4.79 X10^6/uL (4.5-5.9); Red Cell Distribution Width 12.8 % (11.6-14.8); White Blood Cell Count 6.2 X10^3/uL (4.5-11.0)
[2018-07-22 19:55] LABS: INR 1.1 (0.9-1.3); Prothrombin Time 11.7 SECONDS (10.1-12.7)
[2018-07-22 19:58] LABS: PTT Partial Thromboplastin Tim 30 SECONDS (26.4-36.2)
[2018-07-22 19:59] LABS: Alanine Aminotransferase 36 IU/L (21-72); Albumin Globulin Ratio 1.4 (1.0-2.8); Alkaline Phosphatase 55 U/L (38-126); Aspartate Aminotransferase 30 IU/L (17-59); BUN Creatinine Ratio 16.7 (6-22); Bilirubin Total 0.5 mg/dL (0.2-1.3); Blood Urea Nitrogen 15 mg/dL (9-20); Calcium 9.2 mg/dL (8.4-10.2); Carbon Dioxide 28 mmol/L (22-32); Chloride 103 mmol/L (98-107); Estimated Glomerular Filt Rate > 60.0 mL/min (>60); Globulin 2.8 g/dL (1.7-4.1); Glucose 100 mg/dL (80-110); HEMOLYSIS < 15 (0-50); Sodium 142 mmol/L (137-145); Total Protein 6.8 g/dL (6.3-8.2)
[2018-07-22 20:09] VITALS: BP 168/78; PULSE 70; RESP 15
[2018-07-22] MEDS: PANTOPRAZOLE 40 MG VIAL IV (20:11)
[2018-07-22] MEDS: ONDANSETRON 4 MG/2 ML INJ IV (20:11)
[2018-07-22] MEDS: SODIUM CHLORIDE 0.9% 1,000 ML 1000 ML IV (20:11)
[2018-07-22 20:26] VITALS: BP 168/78; PULSE 77; RESP 16; O2SAT 94
--- NOTE | 2018-07-22 20:26 | PC.NURSE ---
Monica performed by Dr Ellsworth
== END 2018-07-22 20:32 | disposition home or self-care (01) ==
PROVIDERS: Emergency Provider Emergency Medicine; Family Provider Family Medicine; PCP Family Medicine
DX: K92.2 Gastrointestinal hemorrhage, unspecified (principal)
CPT/HCPCS: 36591; 80053; 82272; 85025; 85610; 85730; 86850; 86900; 86901; 96374; 96375; 99283; 99284; C9113; J2405

== ENCOUNTER 2019-02-12 08:30 | Outpatient (RCR) | payer MEDICARE, OTHER, SELFPAY | END 2019-02-24 09:22 | LOC: CAR 08:30 | PROVIDERS: Family Provider Family Medicine; PCP Family Medicine; Visit Provider Thoracic Surgery (Cardiothoracic Vascular Surgery) | DX: Z95.2 Presence of prosthetic heart valve (principal) | CPT/HCPCS: 93798 ==

== ENCOUNTER 2019-05-20 09:51 | Emergency (ER) | payer MEDICARE, OTHER, SELFPAY ==
[2019-05-20 10:26] VITALS: BP 150/86; PULSE 75; RESP 13; TEMP 36.9; O2SAT 97
--- NOTE | 2019-05-20 11:21 | DI.CT.S_ITS ---
PROCEDURE: CT HEAD/BRAIN WO CON INDICATIONS: fell yesterday and hit face, on coumadin TECHNIQUE: Noncontrast 4.5 mm thick angled axial sections acquired from the foramen magnum to the vertex, with coronal and sagittal reformats. For radiation dose reduction, the following was used: automated exposure control, adjustment of mA and/or kV according to patient size. COMPARISON: None. FINDINGS: Image quality: Excellent. CSF spaces: Basal cisterns are patent. No extra-axial fluid collections. The ventricles are symmetric in size and shape. Brain: No intracranial bleeds or masses. No evidence of acute infarct. 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 There is cerebral volume loss for age, with resultant ventricular and sulcal prominence. There are moderate to severe periventricular and deep white matter chronic small vessel ischemic changes. There is intracranial internal carotid artery atherosclerosis. Skull and face: Calvarium and visualized facial bones appear intact, without suspicious lesions. Sinuses: Visualized sinuses and mastoids are clear. IMPRESSION: 1. Age related volume loss, moderate severe small vessel ischemic change, multiple bilateral old lacunar infarctions. 2. No evidence acute stroke, hemorrhage, or mass. Dictated by: Thang Yeung M.D. on 05/20/2019 at 11:52 Approved by: Thang Yeung M.D. on 05/20/2019 at 11:55
--- NOTE | 2019-05-20 11:43 | ED.FALL ---
HPI - Fall <Rolan FRANCISCO Biggs - Last Filed: 05/21/19 00:05> General Chief Complaint: Fall Stated Complaint: FELL LAST NIGHT ON [place] Time Seen by Provider: 05/20/19 11:06 Source: patient Mode of arrival: ambulatory Limitations: no limitations History of Present Illness HPI Narrative: This is a 73-year-old male, nonsmoker, who presents to ED after he had a mechanical fall yesterday and fell on his face. Patient reports has a scattered board in driveway, he accidentally slipped after stepping on a board [place] couple of packages and landed on a board on face/mouth region. He states he was in a daze for a bit after the fall and took some time to recover from this. He denies losing consciousness, vision change, vomiting, neck tenderness. He reports left upper arm has been a bit sore but denies difficulty moving it. He denies tingling, numbness to his extremities. He sustain a laceration, contusion to his right upper lip. He reports has not been using ice or any medications for this. He currently is taking Coumadin for after the valve replacement. INR last week was 2.1 or 2.3. 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 Related Data Home Medications Medication Instructions Recorded Confirmed acetaminophen 650 mg PO Q6H PRN 05/20/19 05/20/19 amitriptyline 25 mg PO BID 05/20/19 05/20/19 aspirin 81 mg PO QAM 05/20/19 05/20/19 ezetimibe [Zetia] 10 mg PO QAM 05/20/19 05/20/19 losartan 50 mg PO QPM 05/20/19 05/20/19 metoprolol succinate 75 mg PO BID 05/20/19 05/20/19 multivitamin with minerals 1 tab PO DAILY 05/20/19 05/20/19 nitroglycerin 0.4 mg SUBLINGUAL PRN PRN 05/20/19 05/20/19 pantoprazole [Protonix] 40 mg PO QAM 05/20/19 05/20/19 perphenazine 2 mg PO BID 05/20/19 05/20/19 polyethylene glycol 3350 [Miralax] 17 g PO DAILY PRN 05/20/19 05/20/19 pravastatin [Pravachol] 40 mg PO BEDTIME 05/20/19 05/20/19 sennosides [senna] 8.6 mg PO BID 05/20/19 05/20/19 warfarin 0.5 mg PO QPM 05/20/19 05/20/19 warfarin 2.5 mg PO QPM 05/20/19 05/20/19 Allergies Allergy/AdvReac Type Severity Reaction Status Date / Time rosuvastatin [ROSUVASTATIN] Allergy Unknown MYALGIAS Verified 07/22/18 18:13 Review of Systems <Rolan Biggs [facility] - Last Filed: 05/21/19 00:05> Review of Systems Narrative: General: Denies fever, chills, fatigue, malaise, sweats. HEENT: Denies sinus pain, ear pain, sore throat, difficulty swallowing, dizziness. Respiratory: Denies dyspnea, cough, wheezing, hemoptysis, sputum. Cardiovascular: Denies chest pain, palpitations, orthopnea, edema. Gastrointestinal: Denies nausea, vomiting, abdominal pain, diarrhea, constipation, melena. : Denies dysuria, frequency, incontinence, hematuria, urinary retention. Musculoskeletal: Denies weakness, joint pain or bony pain. Skin: Discomfort and swelling to right upper lip.Denies rash, skin lesions, or other. Neurologic: Denies weakness, headache, numbness, change in speech, confusion, seizures, incoordination. Psychiatric: No concerning psychosocial issues. 12-point review of systems is negative except for those stated above. Exam <Rolan GomezEbony [facility] - Last Filed: 05/21/19 00:05> Narrative Exam Narrative: GEN: Alert, oriented x 3, well appearing and nourished, and in no acute distress. Head: Normal cephalic, atraumatic, step-offs. No scalp or temporal tenderness, palpable mass or rash. EYES: Pupils are equal, round, and reactive to light and accommodation. Extraocular muscles are intact bilaterally. There is no subconjunctival hemorrhage, exudate and sclera non-icteric. ENT: Bilateral auditory canals and tympanic membranes clear. Hearing grossly intact. Nose without bleeding, purulent discharge, septal hematoma or deviation. Turbinate without erythema or swelling. Facial sinuses nontender to palpate. Mucous membrane moist, no mucosal lesion. Throat without erythema, tonsillar hypertrophy or exudate. Uvula in midline, airway patent. Neck: Trachea in midline. No JVD, non-tender to palpate in mid cervical without lymphadenopathy. No masses, step-offs or thyroid megaly. Supple and no meningeal signs. CARDIAC: Normal regular rate and rhythm without murmurs, gallops, or rubs. No chest wall tenderness. No peripheral edema, cyanosis or pallor. Capillary refill is less than 2 seconds. No carotid bruits. RESPIRATORY: Lungs are cleat to auscultate bilaterally. No cough, wheezes, rales, or rhonchi. No stridor, respiratory distress, increase work of breathing, or accessary muscle used. ABD: Abdomen soft, nontender and non-distended. No guarding or rebound tenderness to palpate. Bowel sounds are normal in all 4 quadrants. There is no palpable masses or organomegaly. EXT: Full painless ROM of all extremities with no loss of sensation, strength, effusion or edema. SKIN: Thick, dried blood patch on R uppper lip. Hematoma to inner R lip. Warm, dry, normal color for patient. No erythema, lesions or rash. BACK: Nontender without deformity or crepitance. No flank tenderness. NEUROLOGICAL: Alert and oriented to place, time and person. No facial droops, dysphasia. CN II-XII intact. Strength and sensation symmetric and intact throughout. Reflexes 2+ throughout. Cerebellar testing normal. PSYCHIATRIC: Good judgement and reason, without hallucinations, abnormal affect or abnormal behaviors during the examination. Patient is not suicidal. Initial Vital Signs Initial Vital Signs: Vital Signs Temperature 98.4 F 05/20/19 10:26 Pulse Rate 75 05/20/19 10:26 Respiratory Rate 05/20/19 10:26 Blood Pressure 150/86 H 05/20/19 10:26 Pulse Oximetry 97 05/20/19 10:26 <Dawna Gtz DO - Last Filed: 05/23/19 17:53> Initial Vital Signs Initial Vital Signs: Vital Signs Temperature 98.4 F 05/20/19 10:26 Pulse Rate 75 05/20/19 10:26 Respiratory Rate 13 05/20/19 10:26 Blood Pressure 150/86 H 05/20/19 10:26 Pulse Oximetry 97 05/20/19 10:26 PFSH <FRANCISCO Jones - Last Filed: 05/21/19 00:05> Medical History Aortic valve insufficiency (Acute) Depression (Acute) Diverticulosis (Acute) High cholesterol (Acute) Surgical History H/O aortic valve replacement (Acute) Social History (Updated 07/22/18 @ 19:28 by Hanna Ellsworth DO) Smoking Status: Never smoker alcohol intake: current substance use type: does not use Social History Smoking Status: Never smoker alcohol intake: current substance use type: does not use Scores <FRANCISCO Jones - Last Filed: 05/21/19 00:05> GCS Pablo coma scale eye opening: Spontaneous Pablo coma scale verbal response: Orientated Pablo coma scale motor response: Obey commands [place] coma scale total score: 15 Nexus Score for C-Spine Focal Neurologic deficit present: No Midline spinal tenderness present: No Altered level of conciousness present: No Intoxication present: No Distracting Injury Present: Yes Nexus Criteria for C-spine: 1 Course <FRANCISCO Jones - Last Filed: 05/21/19 00:05> Orders Ordered: Discontinued Medications Bacitracin (Bacitracin) 1 applic TOP NOW ONE Stop: 05/20/19 12:47 Last Admin: 05/20/19 13:03 Dose: 1 applic Documented by: RESHMA Vital Signs Vital signs: Vital Signs - 8 hr 05/20/19 10:26 05/20/19 11:51 05/20/19 12:15 Temperature 98.4 F Pulse Rate 75 74 73 Respiratory Rate 13 14 14 Blood Pressure 150/86 H Blood Pressure [Left Arm] 153/88 H 157/78 H Pulse Oximetry 97 97 93 <Dawna Gtz DO - Last Filed: 05/23/19 17:53> Orders Ordered: Discontinued Medications Bacitracin (Bacitracin) 1 applic TOP NOW ONE Stop: 05/20/19 12:47 Last Admin: 05/20/19 13:03 Dose: 1 applic Documented by: RESHMA Vital Signs Vital signs: Vital Signs - 8 hr 05/20/19 10:26 05/20/19 11:51 05/20/19 12:15 Temperature 98.4 F Pulse Rate 75 74 73 Respiratory Rate 13 14 14 Blood Pressure 150/86 H Blood Pressure [Left Arm] 153/88 H 157/78 H Pulse Oximetry 97 97 93 MDM - Fall <FRANCISCO Jones - Last Filed: 05/21/19 00:05> Differential Diagnosis Differential diagnosis: Likely concussion without loss of consciousness and other (closed head injury, lip laceration, contusion to lip) Medical Records Attestation: I reviewed the patient's medical records. Imaging Data CT scan - head: Radiologist's impression: [address] [address] [address] Scan Report Signed Patient: Darin Clark [facility]#: [id number] : 3Acct:[id number] Age/Sex: 73 / MDate of Service: 05/20/19 Loc: ED Accession Number: [id number] Procedure: CT head/brain wo con Ordering Provider: Rolan Biggs [facility] PROCEDURE: CT HEAD/BRAIN WO CON INDICATIONS: fell yesterday and hit face, on coumadin TECHNIQUE: Noncontrast 4.5 mm thick angled axial sections acquired from the foramen magnum to the vertex, with coronal and sagittal reformats. For radiation dose reduction, the following was used: automated exposure control, adjustment of mA and/or kV according to patient size. COMPARISON: None. FINDINGS: Image quality: Excellent. CSF spaces: Basal cisterns are patent. No extra-axial fluid collections. The ventricles are symmetric in size and shape. Brain: No intracranial bleeds or masses. No evidence of acute infarct. 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 There is cerebral volume loss for age, with resultant ventricular and sulcal prominence. There are moderate to severe periventricular and deep white matter chronic small vessel ischemic changes. There is intracranial internal carotid artery atherosclerosis. Skull and face: Calvarium and visualized facial bones appear intact, without suspicious lesions. Sinuses: Visualized sinuses and mastoids are clear. IMPRESSION: 1. Age related volume loss, moderate severe small vessel ischemic change, multiple bilateral old lacunar infarctions. 2. No evidence acute stroke, hemorrhage, or mass. Dictated by: Thang Yeung M.D. on 05/20/2019 at 11:52 Approved by: Thang Yeung M.D. on 05/20/2019 at 11:55 [facility] Narrative Medical decision making narrative: This is a 73 year old male who mechanical fall yesterday afternoon and landed on his face and sustained upper lip hematoma and abrasion. Patient currently takes Coumadin for valve replacement. Physical exam did not exhibited neurological deficit and had intact cranial nerve exam. There was no loosening of teeth. Patient denies mid cervical tenderness or weakness, tingling to upper extremities. GCS of 15 with Nexus c spine score of 1. The upper lip and take dry bloody scab was attempted to be cleaned of and there was no obvious laceration noted but abrasions. Applied topical antibiotic ointment and patient advised to use ice pack and elevate head of bed during sleep. CT scan of head did not indicate any acute findings such as bleeding, stroke, mass. Patient advised to eat soft consistency food and rinse his mouth after each eating. Return precautions were discussed and advised to follow up with primary care physician in 2-3 days and no further questions were expressed at this time. Discharge Plan Departure Patient Disposition: Home Clinical Impression: Contusion of lip, initial encounter, Abrasion of lip, initial encounter CHI (closed head injury) Qualifiers: Encounter type: initial encounter Qualified Code(s): S09.90XA - Unspecified injury of head, initial encounter Fall Qualifiers: Encounter type: initial encounter Qualified Code(s): W19.XXXA - Unspecified fall, initial encounter Discharge Date/Time: 05/20/19 13:05 Instructions: How to Prevent Falls, DI for Closed Head Injury, DI for Abrasion Activity Restrictions/Additional Instructions: You have been diagnosed with [closed head injury from fall, lip contusion and abrasion. The head CT today does not show acute findings such as bleeding, mass, acute stroke.]. What to do: *Take your medications as directed. You can use [id number] antibiotic ointment on abraded lip. Please use ice pack on and off for 30 minutes at least 4 times a day for next couple of days for swelling under lip. Please is something soft to chew and rinse her mouth with warm salt water after each eating. *Follow up with your primary care provider in 2-3 days, call for an appointment. Let them know you were seen in the ED and that we asked you to be seen in follow up. *Return to ED if you have any new, worsening, or concerning symptoms, such as [chest pain, breathing difficulty, dizziness, weakness to your extremities, nausea vomiting, vision change, or any acute concerns. Please also monitor for signs and symptoms for infection on your lives such as increasing swelling, redness, drainage, pain, fever]. Prescriptions: No Action amitriptyline 25 mg tablet 25 mg PO BID RF: 0 perphenazine 2 mg tablet 2 mg PO BID RF: 0 warfarin 2.5 mg tablet 2.5 mg PO QPM RF: 0 metoprolol succinate 25 mg tablet extended release 24 hr 75 mg PO BID RF: 0 pravastatin [Pravachol] 40 MG tablet 40 mg PO BEDTIME RF: 0 ezetimibe [Zetia] 10 MG tablet 10 mg PO QAM RF: 0 losartan 50 mg Tablet 50 mg PO QPM RF: 0 sennosides [senna] 8.6 mg Tablet 8.6 mg PO BID RF: 0 acetaminophen 325 mg Tablet 650 mg PO Q6H PRN (Reason: pain) RF: 0 polyethylene glycol 3350 [Miralax] 17 gram Powder In Packet 17 g PO DAILY PRN (Reason: Constipation) RF: 0 aspirin 81 mg Tablet,Delayed Release (Dr/Ec) 81 mg PO QAM RF: 0 nitroglycerin 0.4 mg tablet, sublingual 0.4 mg sublingual PRN PRN (Reason: Chest Pain) RF: 0 warfarin 1 mg tablet 0.5 mg PO QPM RF: 0 multivitamin with minerals Tablet 1 tab PO DAILY RF: 0 pantoprazole [Protonix] 40 mg tablet,delayed release (DR/EC) 40 mg PO QAM RF: 0 Referrals: Joseph Can MD [Primary Care Provider] -
[2019-05-20 11:51] VITALS: BP 153/88; PULSE 74; RESP 14; O2SAT 97
[2019-05-20 12:15] VITALS: BP 157/78; PULSE 73; RESP 14; O2SAT 93
[2019-05-20 12:30] VITALS: BP 149/74; PULSE 74; RESP 14; O2SAT 95
[2019-05-20] MEDS: BACITRACIN OINT 0.9 GM PCKT 1 APPLIC TOP (13:03)
== END 2019-05-20 13:05 | disposition home or self-care (01) ==
PROVIDERS: Emergency Provider Nurse Practitioner Family; Family Provider Family Medicine; PCP Family Medicine
DX: S00.511A Abrasion of lip, initial encounter (principal); S09.90XA Unspecified injury of head, initial encounter; W01.198A Fall on same level from slipping, tripping and stumbling with subsequent striking against other object, initial encounter
CPT/HCPCS: 70450; 99283; 99284

== ENCOUNTER 2020-01-13 17:16 | Emergency (ER) | payer MEDICARE, OTHER, SELFPAY ==
[2020-01-13 17:20] VITALS: BP 169/84; PULSE 86; RESP 14; TEMP 37; O2SAT 97; BMI 27.8
--- NOTE | 2020-01-13 17:25 | DI.RAD.S_ITS ---
PROCEDURE: XR CHEST 1V INDICATIONS: chest pain TECHNIQUE: One view of the chest was acquired. COMPARISON: None. FINDINGS: Surgical changes and devices: A pacer device is seen. Post CABG changes are seen. A percutaneously placed aortic valve replacement can be seen. Lungs and pleura: An incomplete inspiratory result is noted, causing a crowded appearance to the lung markings. No focal infiltrates are seen. No pneumothorax or significant pleural effusions are seen. Mediastinum: The cardiac contours are within normal limits. The aorta demonstrates calcification and tortuosity. Bones and chest wall: Age-appropriate bony degenerative changes are seen. No suspicious bony lesions. Overlying soft tissues appear unremarkable. IMPRESSION: Limited portable chest examination, without a significant cardiopulmonary abnormality identified. Postoperative and degenerative changes are seen. Dictated by: Steve Grider M.D. on 01/13/2020 at 16:50 Approved by: Steve Grider M.D. on 01/13/2020 at 16:51
--- NOTE | 2020-01-13 17:42 | ED_ITS ---
HPI - SOB/Dyspnea General Chief Complaint: Shortness of Breath/Dyspnea Stated Complaint: heart issues earlier today Time Seen by Provider: 01/13/20 17:25 Source: patient Mode of arrival: Ambulatory Limitations: no limitations History of Present Illness HPI Narrative: Patient complains of nausea dizzy and dyspnea. Awoke this morning with nausea. Decided to continue with his home chores and work on his boat. At noontime became dyspneic and dizzy. He went to a local clinic and local EMS to get blood pressure remeasured and recommended him to have further evaluation in the emergency department denies any chest pain syncope no numbness tingling or weakness. In the past 1/2 years has had multiple cardiac events. Initiated with having a TAVR in [place]. 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 Pacemaker placed. He was on Coumadin until 4 months ago. Last echocardiogram 1.5 years ago MD Complaint: shortness of breath Related Data Home Medications Medication Instructions Recorded Confirmed acetaminophen 650 mg PO Q6H PRN 05/20/19 05/20/19 amitriptyline 25 mg PO BID 05/20/19 05/20/19 aspirin 81 mg PO QAM 05/20/19 05/20/19 ezetimibe [Zetia] 10 mg PO QAM 05/20/19 05/20/19 losartan 50 mg PO QPM 05/20/19 05/20/19 metoprolol succinate 75 mg PO BID 05/20/19 05/20/19 multivitamin with minerals 1 tab PO DAILY 05/20/19 05/20/19 nitroglycerin 0.4 mg SUBLINGUAL PRN PRN 05/20/19 05/20/19 pantoprazole [Protonix] 40 mg PO QAM 05/20/19 05/20/19 perphenazine 2 mg PO BID 05/20/19 05/20/19 polyethylene glycol 3350 [Miralax] 17 g PO DAILY PRN 05/20/19 05/20/19 pravastatin [Pravachol] 40 mg PO BEDTIME 05/20/19 05/20/19 sennosides [senna] 8.6 mg PO BID 05/20/19 05/20/19 warfarin 0.5 mg PO QPM 05/20/19 05/20/19 warfarin 2.5 mg PO QPM 05/20/19 05/20/19 Allergies Allergy/AdvReac Type Severity Reaction Status Date / Time rosuvastatin [ROSUVASTATIN] Allergy Unknown MYALGIAS Verified 01/13/20 17:24 Review of Systems Review of Systems Narrative: GENERAL: Denies chills, fatigue, malaise, fever, sweats. HEENT: Denies sinus pain, ear pain, sore throat, difficulty swallowing, dizziness. RESPIRATORY: Denies cough wheezing hemoptysis or sputum, does have dyspnea CARDIOVASCULAR: Denies chest pain, palpitations, orthopnea, edema, GASTROINTESTINAL: Denies vomiting abdominal pain diarrhea constipation melena, does have nausea.. : Denies dysuria, frequency, incontinence, hematuria, urinary retention. MUSCULOSKELETAL: denies weakness, joint pain, or bony pain SKIN: Denies rash, skin lesions, or other NEUROLOGIC: Denies weakness, headache, numbness, change in speech, confusion, seizures, incoordination complains of dizziness. PSYCHIATRIC: No concerning psychosocial issues. ROS Unobtainable: All systems reviewed & are unremarkable except as noted in HPI and below Patient History Medical History Aortic valve insufficiency (Acute) Depression (Acute) Diverticulosis (Acute) High cholesterol (Acute) Surgical History H/O aortic valve replacement (Acute) Social History Smoking Status: Never smoker alcohol intake: current substance use type: does not use Smoking Status: Never smoker alcohol intake frequency: 3 or more drinks per day Substance Use Type: does not use Exam Narrative Exam Narrative: GENERAL: patient appears stated age. Well-nourished, well- developed patient, in no distress, not toxic HEAD: Atraumatic. Normocephalic. EYES: Pupils equal round and reactive. Extraocular motions intact. No scleral icterus. No injection or drainage. ENT: Airway patent. NECK: Trachea midline. Non tender CARDIOVASCULAR: Regular rate and rhythm without murmurs, gallops, or rubs. RESPIRATORY: Clear to auscultation. Breath sounds equal bilaterally. No wheezes, rales, or rhonchi. GASTROINTESTINAL: Abdomen soft, non-tender, nondistended. EXTREMITIES: No edema or joint tenderness. BACK: Nontender without deformity or crepitance. No flank tenderness. NEURO: AOx3. SKIN: No rash or erythema of visible areas Initial Vital Signs Initial Vital Signs: Vital Signs Temperature 98.6 F 01/13/20 17:20 Pulse Rate 86 01/13/20 17:20 Respiratory Rate 14 01/13/20 17:20 Blood Pressure 169/84 H 01/13/20 17:20 Pulse Oximetry 97 01/13/20 17:20 Course Course Course Narrative: Time 6:09 p.m.. Sign-out doctor Noe...labs and xray pending..will need possible txr to [facility] for his cardio service Orders Ordered: ED Orders 01/13/20 17:25 XR chest 1V Stat EKG-12 Lead Stat 01/13/20 17:40 Complete Blood Count AUTO DIFF Stat Comprehensive Metabolic Panel Stat Lipase Stat NT-proBNP (BNP-Adult 18+) Stat Troponin & CK Cardiac Panel Stat Vital Signs Vital signs: Vital Signs - 8 hr 01/13/20 17:20 Temperature 98.6 F Pulse Rate 86 Respiratory Rate 14 Blood Pressure 169/84 H Pulse Oximetry 97 MDM - SOB/Dyspnea Differential Diagnosis Differential diagnosis: Likely congestive heart failure and community acquired pneumonia Lab Data Result diagrams: 01/13/20 17:40 01/13/20 17:40 Labs: Lab Results 01/13/20 01/13/20 Range/Units 17:40 17:40 WBC 6.8 (4.5-11.0) X10^3/uL RBC 5.03 (4.5-5.9) X10^6/uL Hgb 15.0 (13.5-17.5) g/dL Hct 44.7 (41-53) % MCV 89.0 (80-100) fL MCH 29.9 (26-34) PG MCHC 33.6 (30-36) % RDW 14.0 (11.6-14.8) % Plt Count 244 (150-400) X10^3/uL Neut % (Auto) 54.2 (50-75) % Lymph % (Auto) 31.0 (25-40) % [place] % (Auto) 11.1 (3-14) % Eos % (Auto) 2.9 (2-4) % Baso % (Auto) 0.8 (0-2) % Neut # (Auto) 3700 (9811-0020) /uL Lymph # (Auto) 2100 (4747-6057) /uL [place] # (Auto) 800 (0-900) /uL Eos # (Auto) 200 (0-450) /uL Baso # (Auto) 100 (0-100) /uL Sodium 138 (137-145) mmol/L Potassium 4.2 (3.4-5.1) mmol/L Chloride 102 (98-107) mmol/L Carbon Dioxide 28 (22-32) mmol/L BUN 16 (9-20) mg/dL Creatinine 0.93 (0.66-1.25) mg/dL Estimated GFR > 60.0 (>60) mL/min BUN/Creatinine Ratio 17.2 (6-22) Glucose 119 H (80-110) mg/dL Calcium 9.5 (8.4-10.2) mg/dL Total Bilirubin 0.5 (0.2-1.3) mg/dL AST 31 (17-59) IU/L ALT 27 (<50) IU/L Alkaline Phosphatase 57 (38-126) U/L Total Creatine Kinase 78 (55-170) U/L CK-MB (CK-2) TNP CK-MB (CK-2) Rel Index TNP Total Protein 7.7 (6.3-8.2) g/dL Albumin 4.3 (3.5-5.0) g/dL Globulin 3.4 (1.7-4.1) g/dL Albumin/Globulin Ratio 1.3 (1.0-2.8) Lipase 87 (23-300) U/L Imaging Data Chest x-ray: Radiologist's Impression: [address] [address] XRay Report Signed Patient: Darin Clark NMR#: [id number] : 3Acct:[id number] Age/Sex: 74 / MDate of Service: 01/13/20 Loc: ED Accession Number: [id number] Procedure: XR chest 1V Ordering Provider: Carter Goodwin MD PROCEDURE: XR CHEST 1V INDICATIONS: chest pain TECHNIQUE: One view of the chest was acquired. COMPARISON: None. FINDINGS: Surgical changes and devices: A pacer device is seen. Post CABG changes are seen. A percutaneously placed aortic valve replacement can be seen. Lungs and pleura: An incomplete inspiratory result is noted, causing a crowded appearance to the lung markings. No focal infiltrates are seen. No pneumothorax or significant pleural effusions are seen. Mediastinum: The cardiac contours are within normal limits. The aorta demonstrates calcification and tortuosity. Bones and chest wall: Age-appropriate bony degenerative changes are seen. No suspicious bony lesions. Overlying soft tissues appear unremarkable. IMPRESSION: Limited portable chest examination, without a significant cardiopulmonary abnormality identified. Postoperative and degenerative changes are seen. Dictated by: Steve Grider M.D. on 01/13/2020 at 16:50 Approved by: Steve Grider M.D. on 01/13/2020 at 16:51 ECG Data Attestation: I personally reviewed and interpreted this ECG as follows: Interpretation: Sinus rhythm. Time 5:23 p.m.. Right bundle branch block. No ST elevation Discharge Plan Departure Prescriptions: No Action amitriptyline 25 mg tablet 25 mg PO BID RF: 0 perphenazine 2 mg tablet 2 mg PO BID RF: 0 warfarin 2.5 mg tablet 2.5 mg PO QPM RF: 0 metoprolol succinate 25 mg tablet extended release 24 hr 75 mg PO BID RF: 0 pravastatin [Pravachol] 40 MG tablet 40 mg PO BEDTIME RF: 0 ezetimibe [Zetia] 10 MG tablet 10 mg PO QAM RF: 0 losartan 50 mg Tablet 50 mg PO QPM RF: 0 sennosides [senna] 8.6 mg Tablet 8.6 mg PO BID RF: 0 acetaminophen 325 mg Tablet 650 mg PO Q6H PRN (Reason: pain) RF: 0 polyethylene glycol 3350 [Miralax] 17 gram Powder In Packet 17 g PO DAILY PRN (Reason: Constipation) RF: 0 aspirin 81 mg Tablet,Delayed Release (Dr/Ec) 81 mg PO QAM RF: 0 nitroglycerin 0.4 mg tablet, sublingual 0.4 mg sublingual PRN PRN (Reason: Chest Pain) RF: 0 warfarin 1 mg tablet 0.5 mg PO QPM RF: 0 multivitamin with minerals Tablet 1 tab PO DAILY RF: 0 pantoprazole [Protonix] 40 mg tablet,delayed release (DR/EC) 40 mg PO QAM RF: 0
--- NOTE | 2020-01-13 17:42 | PC.NURSE ---
Patient reports history of TAVR of aortic valve that resulted in open heart surgery, a fib., and placement of a pacemaker. He states this all happened a year and a half ago. Does not think he has had an echo since then. Denies any known congestive heart failure, does not take any diuretics. He states his appointment coordinator took him off of coumadin about 4 months ago. Denies any swelling in legs normally, however left lower leg is bruised and swollen from trying to kick open a box that I was breaking down for recycling. States today he woke up feeling a bit nauseous. he states he was bending over working on his boat this afternoon when he got a head vasquez and felt short of breath for about 4 minutes. This resolved but he took his BP and it was high at home so he called EMS. EMS did an EKG and said it was fine, but because of the hypertension they recommended he take the ferry from [place] and get checked out here.
[2020-01-13 17:44] LABS: Add Manual Diff / Slide Review NO; Basophils Absolute Auto 100 /uL (0-100); Basophils Percent Auto 0.8 % (0-2); Eosinophils Absolute Auto 200 /uL (0-450); Eosinophils Percent Auto 2.9 % (2-4); Hematocrit 44.7 % (41-53); Lymphocytes Absolute Auto 2100 /uL (1100-4500); Mean Corpuscular HGB Conc 33.6 % (30-36); Mean Corpuscular Hemoglobin 29.9 PG (26-34); Monocytes Absolute Auto 800 /uL (0-900); Monocytes Percent Auto 11.1 % (3-14); Neutrophils Absolute Auto 3700 /uL (1500-7000); Neutrophils Percent Auto 54.2 % (50-75); Platelet Count 244 X10^3/uL (150-400); Red Blood Cell Count 5.03 X10^6/uL (4.5-5.9); White Blood Cell Count 6.8 X10^3/uL (4.5-11.0)
[2020-01-13 17:55] LABS: Alanine Aminotransferase 27 IU/L (<50); Albumin 4.3 g/dL (3.5-5.0); Albumin Globulin Ratio 1.3 (1.0-2.8); Alkaline Phosphatase 57 U/L (38-126); Aspartate Aminotransferase 31 IU/L (17-59); BUN Creatinine Ratio 17.2 (6-22); Bilirubin Total 0.5 mg/dL (0.2-1.3); Blood Urea Nitrogen 16 mg/dL (9-20); Calcium 9.5 mg/dL (8.4-10.2); Carbon Dioxide 28 mmol/L (22-32); Chloride 102 mmol/L (98-107); Creatine Kinase 78 U/L (55-170); Estimated Glomerular Filt Rate > 60.0 mL/min (>60); Globulin 3.4 g/dL (1.7-4.1); Glucose 119 mg/dL (80-110); HEMOLYSIS 18 (0-50); Lipase 87 U/L (23-300); Potassium 4.2 mmol/L (3.4-5.1); Sodium 138 mmol/L (137-145); Total Protein 7.7 g/dL (6.3-8.2)
[2020-01-13 18:06] LABS: Troponin I < 0.012 ng/mL (0.01-0.034)
[2020-01-13 18:14] LABS: NT-proBNP (BNP-Adult 18+) 179 pg/mL (<450)
[2020-01-13 19:02] VITALS: BP 188/87; PULSE 80; RESP 22; O2SAT 94
[2020-01-16 03:10] LABS: COVID19 Sendout Not Detected (Not Detected)
== END 2020-01-13 19:04 | disposition home or self-care (01) ==
PROVIDERS: Emergency Medicine; Emergency Provider Emergency Medicine; Family Provider Family Medicine; PCP Family Medicine
DX: R07.89 Other chest pain (principal); R06.00 Dyspnea, unspecified; I48.91 Unspecified atrial fibrillation; Z79.01 Long term (current) use of anticoagulants
CPT/HCPCS: 36415; 71045; 80053; 82550; 83690; 83880; 84484; 85025; 87635; 93005; 99284

== ENCOUNTER 2021-03-23 12:41 | Day surgery (SDC) | payer MEDICARE, OTHER, SELFPAY ==
--- NOTE | 2021-03-22 20:04 | PM.PREOP ---
Pre-operative Note COVID-19 COVID-19 status: Negative Interval Note History & Physical reviewed/Exam performed by Physician: Yes Changes to H&P: No
--- NOTE | 2021-03-22 20:05 | P.OP_ITS ---
Operative Date/Time/Diagnoses Date of procedure: 03/23/21 Time of procedure: 13:15 Procedure & Clinicians Procedure: Preoperative diagnoses: 1. Complex right advanced cortical and nuclear sclerotic cataract. 2. Astigmatism which is to be corrected with a toric intraocular lens implant. 3. Aortic valve replaced 4. Cardiac pacemaker 5. Depression 6. Arrhythmia Postoperative diagnoses: 1. Complex cataract removal with phacoemulsification use of capsular dye.A to grupo posterior chamber intraocular lens implant placed. Procedure: Phacoemulsification with posterior chamber toric intraocular lens implant. Surgeon: Marguerite Rodriguez MD Complications: None Specimen: None Implant: [id number] [place] 020 Blood loss: None Anesthesia: Retrobulbar with monitored standby Description of procedure: Patient presents with a complaint of decreased vision due to cataract which is affecting activities of daily living at distance and near. The patient wants surgery to improve vision and astigmatism. He has significant cardiac disease which is currently stable. He has previously used Flomax and may have a floppy iris. He has a pacemaker. Due to Flomax use previously a Maluygin ring may be needed. The patient was taken to the operating room and proparacaine drops placed. Indelible ink sherwood were placed at the 90 and 180 degree meridian. The patient was placed on the operating room table and given IV sedation. A retrobulbar block insert consisting of 6 cc of 2% xylocaine without epinephrine mixed half and half with 0.5% Marcaine with 1 cc of hyaluronidase added is placed between the medial and lateral 1/3 of the inferior orbital rim. The eye is manually massaged for 30 sec, prepped using Betadine solution, and draped in the usual sterile fashion. Temporal approach was made, a 1 mm side-port incision was made 90? from the proposed corneal wound. Phenylephrine 1.5% mixed with 1% xylocaine 0.2 cc was placed into the anterior chamber. An air bubble was placed followed by Visudyne capsular dye. The air bubble was then irrigated Viscoat followed by Healon was then placed. A 2.6 mm clear incision with a 2.6 mm blade was placed at the 170 degree meridian. A 360 degree capsulorrhexis style capsulotomy was then performed with a cystitome needle on a Healon greatly aided by the capsular dye. No Maluygin ring was needed. Hydrodelineation and hydrodissection were performed. The phacoemulsification unit is introduced, and sculpting used to groove the central lens. It is then removed in chopping mode. Epi nucleus is removed with epinuclear mode and irrigation aspiration was used to remove the peripheral cortex. The posterior capsule is polished. The intraocular lens is selected, inspected, power confirmed, and placed in the posterior chamber at the desired meridian. The pupil was not constricted. The wound was stromally hyd rated and tested for leaks, there was none and it was left sutureless. Vigamox 0.1 cc was placed into the anterior chamber. Kenalog 0.2 cc was placed in the superior subconjunctival space. A drop of antibiotic and was placed and the eye was patched and shielded. The patient was stable and returned to the recovery room in excellent condition. Dictated by: Marguerite Rodriguez MD Copy to: [facility] Same procedure as scheduled: Yes
[2021-03-23 15:07] VITALS: BP 153/90; PULSE 74; RESP 16; TEMP 36.2; O2SAT 98; BMI 25.8
[2021-03-23] MEDS: CATARACT EYE COMPOUND (10 DROPS/SYRINGE) 3 DROPS EYE-OP (15:10)
[2021-03-23] MEDS: PROPARACAINE 0.5% OPHTH SOL 2 DROPS EYE-OP (16:38)
[2021-03-23] MEDS: PHENYLEPHRINE/LIDOCAINE VIAL (OR) 0.2 ML EYE-OP (16:55)
[2021-03-23] MEDS: HYALURONATE SODIUM 10 MG/ML SYRINGE INJ (16:55)
[2021-03-23] MEDS: MOXIFLOXACIN INJ 4 MG/0.8 ML VIAL 0.5 MG EYE-OP (16:55)
[2021-03-23] MEDS: ERYTHROMYCIN OPHTH 1 GM OINT 1 APPLIC EYE-RIGHT (16:55)
[2021-03-23] MEDS: CHONDROIDTIN/SOD HYALURONATE 1.05 ML SYRINGE INTRAOCULA (16:55)
[2021-03-23] MEDS: BALANCED SALT IRRIG SOLN NO.2 500 ML, EPINEPHrine 1 MG IRR (16:57)
[2021-03-23] MEDS: TRYPAN BLUE 0.5 ML SYRINGE INJ (16:57)
[2021-03-23] MEDS: TRIAMCINOLONE 50 MG/5 ML VIAL INJ (16:57)
[2021-03-23] MEDS: LIDOCAINE 2% 4 ML, BUPIVACAINE 0.5% (PF) 4 ML, HYALURONIDASE 150 UNIT INJ (16:58)
[2021-03-23 17:37] VITALS: BP 151/67; PULSE 70; RESP 14; TEMP 36.1; O2SAT 96
== END 2021-03-23 17:40 | disposition home or self-care (01) ==
LOC: OR 12:44
PROVIDERS: Family Provider Family Medicine; PCP Family Medicine; Referring Provider Ophthalmology; Visit Provider Ophthalmology
PROC: (CPT 66984; principal; 2021-03-23 14:15)
DX: H25.811 Combined forms of age-related cataract, right eye (principal); H52.201 Unspecified astigmatism, right eye; Z95.0 Presence of cardiac pacemaker; F32.9 Major depressive disorder, single episode, unspecified; I49.9 Cardiac arrhythmia, unspecified
CPT/HCPCS: 66984; J0171; J2704; J3010; J3301; J3470; V2787

== ENCOUNTER 2021-04-06 13:15 | Day surgery (SDC) | payer MEDICARE, OTHER, SELFPAY ==
--- NOTE | 2021-04-05 19:17 | PM.PREOP ---
Pre-operative Note COVID-19 COVID-19 status: Negative Interval Note History & Physical reviewed/Exam performed by Physician: Yes Changes to H&P: No H&P completed within 30 days and has changed as indicated here:: Fasting glucose of 105. States stopped metformin 2 months ago as no longer needed.
--- NOTE | 2021-04-05 19:18 | PM.OP.1 ---
Operative Date/Time/Diagnoses Date of procedure: 04/06/21 Time of procedure: 14:15 Procedure & Clinicians Procedure: Preoperative diagnoses: 1. Left advanced cortical and Nuclear sclerotic cataract 2. Astigmatism which is to be corrected with a toric intraocular lens implant. 3. Diabetes without retinopathy 4. 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 History of multiple lacunar infarct 6. Atrial fibrillation on chronic anticoagulation 7. Aortic valve replacement 8. Depression Postoperative diagnoses: 1. Complex cataract removal with phacoemulsification with toric posterior chamber intraocular lens implant placed. Procedure: Phacoemulsification with posterior chamber toric intraocular lens implant. Surgeon: Marguerite Rodriguez MD Complications: None Specimen: None Implant: [id number] [place] 160 Blood loss: None Anesthesia: Retrobulbar with monitored standby Description of procedure: Patient presents with a complaint of decreased vision due to cataract which is affecting activities of daily living. The patient wants surgery to improve vision and astigmatism. The patient was taken to the operating room and proparacaine drops placed. Indelible ink sherwood were placed at the 90 and 180 degree meridian. The patient was placed on the operating room table and given IV sedation. A retrobulbar block insert consisting of 6 cc of 2% xylocaine without epinephrine mixed half and half with 0.5% Marcaine with 1 cc of hyaluronidase added is placed between the medial and lateral 1/3 of the inferior orbital rim. The eye is manually massaged for 30 sec, prepped using Betadine solution, and draped in the usual sterile fashion. Temporal approach was made, a 1 mm side-port incision was made 90? from the proposed corneal wound. Phenylephrine 1.5% mixed with 1% xylocaine 0.2 cc was placed into the anterior chamber. An air bubble was placed followed by Visudyne dye into the anterior chamber. BSS was then used to irrigate out the extra air. Viscoat followed by Healon was then placed. A 2.6 mm clear incision with a 2.6 mm blade was placed at the 170 degree meridian. A 360 degree capsulorrhexis style capsulotomy was then performed with a cystitome needle on a Healon. Hydrodelineation and hydrodissection were performed. The phacoemulsification unit is introduced, and sculpting used to groove the central lens. It is then removed in chopping mode. Epi nucleus is removed with epinuclear mode and irrigation aspiration was used to remove the peripheral cortex. The posterior capsule is polished. The intraocular lens is selected, inspected, power confirmed, and placed in the posterior chamber at the desired meridian of 160?. The pupil was not constricted. The wound was stromally hydrated and tested for leaks, there was none and it was left sutureless. Vigamox 0.1 cc was placed into the anterior chamber. Kenalog 0.2 cc was placed in the superior subconjunctival space. A drop of antibiotic and was placed and the eye was patched and shielded. The patient was stable and returned to the recovery room in excellent condition. Dictated by: Marguerite Rodriguez MD Copy to: [facility] Same procedure as scheduled: Yes
[2021-04-06] MEDS: PROPARACAINE 0.5% OPHTH SOL 2 DROPS EYE-OP (13:46)
[2021-04-06] MEDS: CATARACT EYE COMPOUND (10 DROPS/SYRINGE) 3 DROPS EYE-OP (13:46)
[2021-04-06 13:57] VITALS: BP 127/78; PULSE 70; RESP 16; TEMP 36.7; O2SAT 97
[2021-04-06 14:02] VITALS: BMI 26.8
--- NOTE | 2021-04-06 15:01 | SUR.OPER ---
Supine on eye stretcher, head on extension cradle secured with tape. Arms tucked at sides with blanket. Pillow under knees.
[2021-04-06] MEDS: TRYPAN BLUE 0.5 ML SYRINGE INJ (15:04)
[2021-04-06] MEDS: ERYTHROMYCIN OPHTH 1 GM OINT 1 APPLIC EYE-LEFT (15:04)
[2021-04-06] MEDS: TRIAMCINOLONE 50 MG/5 ML VIAL INJ (15:04)
[2021-04-06] MEDS: HYALURONATE SODIUM 10 MG/ML SYRINGE INJ (15:05)
[2021-04-06] MEDS: PHENYLEPHRINE/LIDOCAINE VIAL (OR) 0.2 ML EYE-OP (15:05)
[2021-04-06] MEDS: CHONDROIDTIN/SOD HYALURONATE 1.05 ML SYRINGE INTRAOCULA (15:05)
[2021-04-06] MEDS: MOXIFLOXACIN INJ 4 MG/0.8 ML VIAL 0.5 MG EYE-OP (15:05)
[2021-04-06] MEDS: LIDOCAINE 2% 4 ML, BUPIVACAINE 0.5% (PF) 4 ML, HYALURONIDASE 150 UNIT INJ (15:06)
[2021-04-06] MEDS: BALANCED SALT IRRIG SOLN NO.2 500 ML, EPINEPHrine 1 MG IRR (15:06)
[2021-04-06] MEDS: BUPIVACAINE 0.25% (PF) VIAL 4 ML INJ (15:08)
[2021-04-06 15:43] VITALS: BP 147/88; PULSE 70; RESP 16; TEMP 36.2; O2SAT 98
[2021-04-06 16:05] VITALS: BP 156/81; PULSE 70; RESP 16; TEMP 36.4; O2SAT 97
== END 2021-04-06 16:10 | disposition home or self-care (01) ==
LOC: OR 13:18
PROVIDERS: Family Provider Family Medicine; PCP Family Medicine; Referring Provider Ophthalmology; Visit Provider Ophthalmology
PROC: (CPT 66984; principal; 2021-04-06 14:15)
DX: H25.812 Combined forms of age-related cataract, left eye (principal); H52.202 Unspecified astigmatism, left eye; E11.9 Type 2 diabetes mellitus without complications; I48.91 Unspecified atrial fibrillation; Z79.01 Long term (current) use of anticoagulants; F32.9 Major depressive disorder, single episode, unspecified
CPT/HCPCS: 66984; 82962; J0171; J2704; J3301; J3470; V2787

== ENCOUNTER 2022-02-28 16:49 | Emergency (ER) | payer MEDICARE, OTHER, SELFPAY ==
[2022-02-28 16:53] VITALS: BP 167/83; PULSE 83; RESP 24; TEMP 36.5; O2SAT 98
--- NOTE | 2022-02-28 16:57 | DI.RAD.S_ITS ---
PROCEDURE: XR CHEST 1V INDICATIONS: chest pain TECHNIQUE: One view of the chest was acquired. COMPARISON: [facility], CR, XR CHEST 1V, 01/13/2020, 17:30. FINDINGS: Surgical changes and devices: Left pacemaker with right atrial and right ventricular leads. TAVR stent. Post median sternotomy. Lungs and pleura: Lungs are clear. Possible blunting at the left costophrenic angle. No pneumothorax. Mediastinum: Mediastinal contours appear unchanged. Heart size is at the upper limits of normal. Bones and chest wall: No suspicious bony lesions. Overlying soft tissues appear unremarkable. IMPRESSION: Possible small left pleural effusion. This could represent overlying soft tissues. Dictated by: Babatunde Ghotra M.D. on 02/28/2022 at 17:26 Approved by: Babatunde Ghotra M.D. on 02/28/2022 at 17:27
[2022-02-28 17:34] LABS: Add Manual Diff / Slide Review NO; Basophils Absolute Auto 100 /uL (0-100); Basophils Percent Auto 0.9 % (0-2); Eosinophils Absolute Auto 200 /uL (0-450); Eosinophils Percent Auto 2.5 % (2-4); Hematocrit 42.4 % (41-53); Hemoglobin 14.9 g/dL (13.5-17.5); Lymphocytes Absolute Auto 2100 /uL (1100-4500); Lymphocytes Percent Auto 27.7 % (25-40); Mean Corpuscular HGB Conc 35.2 % (30-36); Mean Corpuscular Hemoglobin 30.8 PG (26-34); Mean Corpuscular Volume 87.6 fL (80-100); Monocytes Absolute Auto 700 /uL (0-900); Monocytes Percent Auto 9.4 % (3-14); Neutrophils Absolute Auto 4500 /uL (1500-7000); Neutrophils Percent Auto 59.5 % (50-75); Platelet Count 222 X10^3/uL (150-400); Red Blood Cell Count 4.84 X10^6/uL (4.5-5.9); Red Cell Distribution Width 13.6 % (11.6-14.8); White Blood Cell Count 7.5 X10^3/uL (4.5-11.0)
[2022-02-28 17:37] LABS: Alanine Aminotransferase 12 IU/L (<50); Albumin 4.3 g/dL (3.5-5.0); Albumin Globulin Ratio 1.7 (1.0-2.8); Alkaline Phosphatase 58 U/L (38-126); Aspartate Aminotransferase 25 IU/L (17-59); BUN Creatinine Ratio 19.8 (6-22); Bilirubin Total 0.7 mg/dL (0.2-1.3); Blood Urea Nitrogen 18 mg/dL (9-20); Calcium 9.1 mg/dL (8.4-10.2); Carbon Dioxide 26 mmol/L (22-32); Chloride 105 mmol/L (98-107); Creatine Kinase 50 U/L (55-170); Estimated Glomerular Filt Rate > 60 mL/min (>60); Globulin 2.6 g/dL (1.7-4.1); Glucose 113 mg/dL (80-110); HEMOLYSIS 16 (0-50); Lipase 87 U/L (23-300); Magnesium 1.9 mg/dL (1.6-2.3); Potassium 4.1 mmol/L (3.4-5.1); Sodium 138 mmol/L (137-145); Total Protein 6.9 g/dL (6.3-8.2)
[2022-02-28 17:48] LABS: Troponin I < 0.012 ng/mL (0.01-0.034)
--- NOTE | 2022-02-28 18:05 | ED_ITS ---
HPI - Arrhythmia/Palpitations General Chief Complaint: Arrhythmia/Palpitations Stated Complaint: SPINING CHEST JUMPED Time Seen by Provider: 02/28/22 18:02 Source: patient Mode of arrival: Ambulatory History of Present Illness HPI narrative: Patient is a charla 76-year-old male with history of neurologic disease similar to Parkinson's, cardiac valve route placement, hypertension, hyperlipidemia, presenting today with dizziness. He said this morning he sat up in bed and had a very brief episode of dizziness. He took it easy for the rest of the day called his primary care is said to monitor it. He had another brief episode this afternoon. He did not pass out and also lasted under 1 minute. He has no chest pain or palpitations. He denies any fever chills. He has not fallen. He feels a little nauseous. He has intermittent blurry vision but he says that is normal for him. Related Data Home Medications Medication Instructions Recorded Confirmed amitriptyline 25 mg tablet 25 mg PO BID 05/20/19 04/06/21 aspirin 81 mg tablet,delayed 81 mg PO QAM 05/20/19 04/06/21 release ezetimibe 10 mg tablet (Zetia) 10 mg PO QAM 05/20/19 04/06/21 losartan 50 mg tablet 50 mg PO QPM 05/20/19 04/06/21 metoprolol succinate 25 mg 75 mg PO BID 05/20/19 04/06/21 tablet,extended release 24 hr pantoprazole 40 mg tablet,delayed 40 mg PO QAM 05/20/19 04/06/21 release (Protonix) perphenazine 2 mg tablet 2 mg PO BID 05/20/19 05/20/19 pravastatin 40 mg tablet 40 mg PO BEDTIME 05/20/19 04/06/21 (Pravachol) Allergies Allergy/AdvReac Type Severity Reaction Status Date / Time rosuvastatin [ROSUVASTATIN] AdvReac Mild MYALGIAS Verified 04/06/21 13:43 Review of Systems Review of Systems Narrative: GENERAL: Denies chills, fatigue, malaise, fever, sweats, travel HEENT: Denies sinus pain, ear pain, sore throat, difficulty swallowing, neck pain RESPIRATORY: Denies dyspnea, cough, wheezing, hemoptysis, sputum. CARDIOVASCULAR: Denies chest pain, palpitations, orthopnea, edema GASTROINTESTINAL: Denies nausea, vomiting, abdominal pain, diarrhea, constipation, melena. : Denies dysuria, frequency, incontinence, hematuria, urinary retention, flank pain. MUSCULOSKELETAL: Denies weakness, joint pain, or bony pain SKIN: No rash, no erythema, no pruritus NEUROLOGIC: See HPI PSYCHIATRIC: No concerning psychosocial issues. 12 point review of systems is negative except for those stated above and HPI Patient History Medical History (Updated 02/28/22 @ 19:32 by Dawna Gtz DO) Aortic valve insufficiency Depression Diverticulosis High cholesterol Surgical History H/O aortic valve replacement Social History household members: spouse Smoking Status: Never smoker alcohol intake: current substance use type: does not use Smoking Status: Never smoker alcohol intake frequency: 0-2 drinks per day Substance Use Type: does not use Exam Initial Vital Signs Initial Vital Signs: Vital Signs Temperature 97.7 F 02/28/22 16:53 Pulse Rate 83 02/28/22 16:53 Respiratory Rate 24 02/28/22 16:53 Blood Pressure 167/83 H 02/28/22 16:53 Pulse Oximetry 98 02/28/22 16:53 Oxygen Delivery Method 02/28/22 16:53 GENERAL: Alert pleasant 76-year-old male and in no acute distress. HEENT: Head atraumatic,EOMI, pupils reactive, face symmetric, moist mucous membranes CARDIOVASCULAR: Regular rate and rhythm without murmurs, rubs or gallops. RESPIRATORY: Breath sounds equal bilaterally, no wheezes rales or rhonchi. ABDOMEN: Soft, nontender. Normoactive bowel sounds all 4 quadrants. No guarding or rebound. EXTREMITIES: Normal range of motion, no clubbing or edema. Neurovascularly intact NEUROLOGICAL: Alert and oriented x4.Normal gait and speech. Cranial nerves II through XII grossly intact. Good [id number], good ramr-fd-cusp, strength equal bilaterally, no dysarthria or aphasia, sensation in tact to soft touch bilaterally, no visual changes, no facial droop SKIN: Warm, dry, no laceration, no petechiae, no rashes or lesions. Scores NIH Stroke Scale Level of Conciousness: Alert, keenly responsive Ask month/age: Answers both questions correctly. Open/close eyes, close hand: Performs both tasks correctly Best gaze horizontal: Normal Visual mustafa: No visual loss Facial palsy: Normal symetrical movement Left arm drift: No drift for full 10 sec Right arm drift: No drift for full 10 sec Left leg drift: No drift for full 5 sec Right leg drift: No drift for full 5 sec Limb ataxia: Absent Sensory on face/arms/legs: Normal, no sensory loss Best language: No aphasia, normal Dysarthria: Normal Extinction or inattention: No abnormality Total NIH Stroke scale score: 0 Course Orders Ordered: ED Orders 02/28/22 16:57 XR chest 1V Stat EKG-12 Lead Stat 02/28/22 17:05 Complete Blood Count AUTO DIFF Stat Comprehensive Metabolic Panel Stat Lipase Stat Magnesium Stat Troponin & CK Cardiac Panel Stat 02/28/22 18:44 CT head/brain wo con Stat Vital Signs Vital signs: Vital Signs - 8 hr 02/28/22 16:53 02/28/22 19:44 Temperature 97.7 F Pulse Rate 83 66 Respiratory Rate 24 17 Blood Pressure 167/83 H 143/86 H Pulse Oximetry 98 95 Oxygen Delivery Method Room Air Room Air MDM - Arrhythmia/Palpitations Lab Data Result diagrams: 02/28/22 17:05 02/28/22 17:05 Labs: Lab Results 02/28/22 02/28/22 Range/Units 17:05 17:05 WBC 7.5 (4.5-11.0) X10^3/uL RBC 4.84 (4.5-5.9) X10^6/uL Hgb 14.9 (13.5-17.5) g/dL Hct 42.4 (41-53) % MCV 87.6 (80-100) fL MCH 30.8 (26-34) PG MCHC 35.2 (30-36) % RDW 13.6 (11.6-14.8) % Plt Count 222 (150-400) X10^3/uL Neut % (Auto) 59.5 (50-75) % Lymph % (Auto) 27.7 (25-40) % [place] % (Auto) 9.4 (3-14) % Eos % (Auto) 2.5 (2-4) % Baso % (Auto) 0.9 (0-2) % Neut # (Auto) 4500 (6252-0610) /uL Lymph # (Auto) 2100 (7010-7981) /uL [place] # (Auto) 700 (0-900) /uL Eos # (Auto) 200 (0-450) /uL Baso # (Auto) 100 (0-100) /uL Sodium 138 (137-145) mmol/L Potassium 4.1 (3.4-5.1) mmol/L Chloride 105 (98-107) mmol/L Carbon Dioxide 26 (22-32) mmol/L BUN 18 (9-20) mg/dL Creatinine 0.91 (0.66-1.25) mg/dL Estimated GFR > 60 (>60) mL/min BUN/Creatinine Ratio 19.8 (6-22) Glucose 113 H (80-110) mg/dL Calcium 9.1 (8.4-10.2) mg/dL Magnesium 1.9 (1.6-2.3) mg/dL Total Bilirubin 0.7 (0.2-1.3) mg/dL AST 25 (17-59) IU/L ALT 12 (<50) IU/L Alkaline Phosphatase 58 (38-126) U/L Total Creatine Kinase 50 L (55-170) U/L CK-MB (CK-2) TNP CK-MB (CK-2) Rel Index TNP Troponin I < 0.012 (0.01-0.034) ng/mL Total Protein 6.9 (6.3-8.2) g/dL Albumin 4.3 (3.5-5.0) g/dL Globulin 2.6 (1.7-4.1) g/dL Albumin/Globulin Ratio 1.7 (1.0-2.8) Lipase 87 (23-300) U/L Urine Dip Bedside Urine Glucose Negative Bedside Urine Bilirubin - Negative Bedside Urine Ketone - Negative Urine Specific [place] 1.020 Bedside Urine Occult Blood - Negative Bedside Urine pH 6.0 Bedside Urine Protein - Negative Bedside Urine Urobilinogen - Negative Bedside Urine Nitrite - Negative Bedside Urine Leukocytes - Negative Esterase Imaging Data CT scan - head: Radiologist's Impresson: CT Scan Report Signed Patient: Darin Clark MR#: [id number] : 1945 Acct:[id number] Age/Sex: 76 / M Date of Service: 02/28/22 Loc: ED Accession Number: [id number] ?? Procedure: CT head/brain wo con Ordering Provider: Dawna Gtz D.O. PROCEDURE:? CT HEAD/BRAIN WO CON ? INDICATIONS:? dizzy ? TECHNIQUE:? Noncontrast 5 mm thick angled axial sections acquired from the foramen magnum to the vertex, with coronal and sagittal reformats.? For radiation dose reduction, the following was used:? automated exposure control, adjustment of mA and/or kV according to patient size.? ? COMPARISON:? Merged With [facility], CT, CT HEAD/BRAIN WO CON, 05/20/2019, 11:26. ? FINDINGS:? Image quality:? Excellent.? ? CSF spaces:? Basal cisterns are patent.? No extra-axial fluid collections.? There is mild cerebral volume loss, with resultant ventricular and sulcal prominence.? ? Brain:? No intracranial hemorrhage, mass, or mass effect.? There are subcortical, periventricular and deep white matter hypodensities consistent with chronic small vessel ischemic changes.? The hare-white matter junction appears preserved.? There is intracranial internal carotid artery atherosclerosis.? ? Skull and face:? Calvarium and visualized facial bones appear intact, without suspicious lesions.? ? Sinuses:? Visualized sinuses and mastoids are clear.? ? IMPRESSION:? ? 1. No acute intracranial abnormality. ? 2. Moderate to severe chronic white matter small vessel ischemic changes and mild cerebral volume loss.? ? ? Chest x-ray: Radiologist's Impresson: XRay Report Signed Patient: Darin Clark MR#: [id number] : 1945 Acct:[id number] Age/Sex: 76 / M Date of Service: 02/28/22 Loc: ED Accession Number: [id number] ?? Procedure: XR chest 1V Ordering Provider: Alicia Ibarra MD PROCEDURE:? XR CHEST 1V ? INDICATIONS:? chest pain ? TECHNIQUE:? One view of the chest was acquired.? ? COMPARISON:? Merged With [facility], CR, XR CHEST 1V, 01/13/2020, 17:30. ? FINDINGS:? ? Surgical changes and devices:? Left pacemaker with right atrial and right ventricular leads.? TAVR stent.? Post median sternotomy. ? Lungs and pleura:? Lungs are clear.? Possible blunting at the left costophrenic angle.? No pneumothorax.? ? Mediastinum:? Mediastinal contours appear unchanged.? Heart size is at the upper limits of normal.? ? Bones and chest wall:? No suspicious bony lesions.? Overlying soft tissues appear unremarkable.? ? IMPRESSION:? Possible small left pleural effusion.? This could represent overlying soft tissues. ? ? Dictated by: Babatunde Ghotra M.D. on 02/28/2022 at 17:26 ECG Data Interpretation: Normal sinus rhythm rate 84 MS interval 184 QRS 134 QTC 458 right bundle-branch block noted no ST changes no T-wave inversions similar to previous EKG in 2012 MDM Narrative Medical decision making narrative: Patient had 2 very brief episodes of some dizziness which quickly resolved. No is nausea vomiting numbness tingling or weakness. No sign of his stroke blood work is overall reassuring. He feels much better. Recommended increasing fluid intake resting and close monitoring. May return as needed Discharge Plan Departure Patient Disposition: Home Clinical Impression: Dizziness Instructions: Dizziness, Nonvertigo Activity Restrictions/Additional Instructions: *You have been diagnosed with dizziness resolved *What to do: Increase fluid intake. Go slow rest *Continue to take medications as directed *Follow up with your primary care provider in 2-3 days or call [phone] *Return to ER if you should have increased dizziness falls chest pain palpitations or any new, worsening or concerning symptoms Prescriptions: No Action amitriptyline 25 mg tablet 25 mg PO BID perphenazine 2 mg tablet 2 mg PO BID metoprolol succinate 25 mg tablet extended release 24 hr 75 mg PO BID pravastatin [Pravachol] 40 MG tablet 40 mg PO BEDTIME ezetimibe [Zetia] 10 MG tablet 10 mg PO QAM losartan 50 mg Tablet 50 mg PO QPM aspirin 81 mg Tablet,Delayed Release (Dr/Ec) 81 mg PO QAM pantoprazole [Protonix] 40 mg tablet,delayed release (DR/EC) 40 mg PO QAM Referrals: Nimo Castelan MD [Primary Care Provider] - Visit Report Forms: Patient Portal/API
--- NOTE | 2022-02-28 18:44 | DI.CT.S_ITS ---
PROCEDURE: CT HEAD/BRAIN WO CON INDICATIONS: dizzy TECHNIQUE: Noncontrast 5 mm thick angled axial sections acquired from the foramen magnum to the vertex, with coronal and sagittal reformats. For radiation dose reduction, the following was used: automated exposure control, adjustment of mA and/or kV according to patient size. COMPARISON: [facility], CT, CT HEAD/BRAIN WO CON, 05/20/2019, 11:26. FINDINGS: Image quality: Excellent. CSF spaces: Basal cisterns are patent. No extra-axial fluid collections. There is mild cerebral volume loss, with resultant ventricular and sulcal prominence. Brain: No intracranial hemorrhage, mass, or mass effect. There are subcortical, periventricular and deep white matter hypodensities consistent with chronic small vessel ischemic changes. The hare-white matter junction appears preserved. There is intracranial internal carotid artery atherosclerosis. Skull and face: Calvarium and visualized facial bones appear intact, without suspicious lesions. Sinuses: Visualized sinuses and mastoids are clear. IMPRESSION: 1. No acute intracranial abnormality. 2. Moderate to severe chronic white matter small vessel ischemic changes and mild cerebral volume loss. Dictated by: Aly Gu M.D. on 02/28/2022 at 19:14 Approved by: Aly Gu M.D. on 02/28/2022 at 19:16
[2022-02-28 19:44] VITALS: BP 143/86; PULSE 66; RESP 17; O2SAT 95
== END 2022-02-28 19:45 | disposition home or self-care (01) ==
PROVIDERS: Emergency Medicine; Emergency Provider Emergency Medicine; Family Provider Family Medicine; PCP Internal Medicine
DX: R42 Dizziness and giddiness (principal); R07.9 Chest pain, unspecified
CPT/HCPCS: 70450; 71045; 80053; 81003; 82550; 83690; 83735; 84484; 85025; 93005; 99283; 99284

== ENCOUNTER 2022-03-02 12:23 | Emergency (ER) | payer MEDICARE, OTHER, SELFPAY ==
[2022-03-02 12:27] VITALS: BP 157/76; PULSE 80; RESP 15; TEMP 36.5; O2SAT 99; BMI 25.8
[2022-03-02 12:40] VITALS: PULSE 77; RESP 23; O2SAT 96
[2022-03-02 12:41] VITALS: BP 149/79; PULSE 77; O2SAT 98
[2022-03-02 12:59] LABS: Add Manual Diff / Slide Review NO; Basophils Absolute Auto 0 /uL (0-100); Basophils Percent Auto 0.7 % (0-2); Eosinophils Absolute Auto 100 /uL (0-450); Eosinophils Percent Auto 1.6 % (2-4); Hematocrit 43.3 % (41-53); Lymphocytes Absolute Auto 1400 /uL (1100-4500); Lymphocytes Percent Auto 22.5 % (25-40); Mean Corpuscular HGB Conc 34.7 % (30-36); Mean Corpuscular Hemoglobin 30.6 PG (26-34); Mean Corpuscular Volume 88.2 fL (80-100); Monocytes Absolute Auto 800 /uL (0-900); Monocytes Percent Auto 12.4 % (3-14); Neutrophils Absolute Auto 3900 /uL (1500-7000); Neutrophils Percent Auto 62.8 % (50-75); Platelet Count 229 X10^3/uL (150-400); Red Blood Cell Count 4.91 X10^6/uL (4.5-5.9); Red Cell Distribution Width 13.7 % (11.6-14.8); White Blood Cell Count 6.2 X10^3/uL (4.5-11.0)
[2022-03-02 13:00] VITALS: BP 129/73; PULSE 73; RESP 17; O2SAT 94
[2022-03-02 13:30] VITALS: BP 145/80; PULSE 74; O2SAT 96
[2022-03-02 13:32] LABS: Alanine Aminotransferase 14 IU/L (<50); Albumin 4.5 g/dL (3.5-5.0); Albumin Globulin Ratio 1.6 (1.0-2.8); Alkaline Phosphatase 56 U/L (38-126); Aspartate Aminotransferase 30 IU/L (17-59); BUN Creatinine Ratio 17.2 (6-22); Bilirubin Total 0.7 mg/dL (0.2-1.3); Blood Urea Nitrogen 16 mg/dL (9-20); Calcium 9.4 mg/dL (8.4-10.2); Carbon Dioxide 29 mmol/L (22-32); Chloride 103 mmol/L (98-107); Estimated Glomerular Filt Rate > 60 mL/min (>60); Globulin 2.8 g/dL (1.7-4.1); Glucose 103 mg/dL (80-110); HEMOLYSIS < 15 (0-50); Potassium 4.4 mmol/L (3.4-5.1); Sodium 138 mmol/L (137-145); Total Protein 7.3 g/dL (6.3-8.2)
--- NOTE | 2022-03-02 13:36 | ED.GENADULT ---
HPI - General Adult General Chief complaint: Dizziness Stated complaint: Almost Passed Out Time Seen by Provider: 03/02/22 12:43 Source: patient Mode of arrival: Ambulatory Limitations: no limitations History of Present Illness HPI narrative: Patient is a 76-year-old male who was seen here in the emergency department a couple days ago for episodes of dizziness. He had a fairly extensive workup at the time to could head CT. Subsequently discharged home. Since that time he had an episode this morning where he states he was sitting on the toilet. He did have a bowel movement. He states that he turned his head to the right in order to wipe himself when he had another episode of the dizziness. This 1 was just like his prior episodes. It was not associated with chest pain, shortness of breath, palpitations, headache. He states that today almost caused him to pass out. When the episodes happen they last for seconds and then completely resolved. He has not had any history of vertigo in the past. He has no numbness in his arms or legs. He does have a history of Parkinson like symptoms although he does see a neurologist he states that his neurologist does not think that he has Parkinson's disease he currently is not having any symptoms. Related Data Home Medications Medication Instructions Recorded Confirmed amitriptyline 25 mg tablet 25 mg PO BID 05/20/19 04/06/21 aspirin 81 mg tablet,delayed 81 mg PO QAM 05/20/19 04/06/21 release ezetimibe 10 mg tablet (Zetia) 10 mg PO QAM 05/20/19 04/06/21 losartan 50 mg tablet 50 mg PO QPM 05/20/19 04/06/21 metoprolol succinate 25 mg 75 mg PO BID 05/20/19 04/06/21 tablet,extended release 24 hr pantoprazole 40 mg tablet,delayed 40 mg PO QAM 05/20/19 04/06/21 release (Protonix) perphenazine 2 mg tablet 2 mg PO BID 05/20/19 05/20/19 pravastatin 40 mg tablet 40 mg PO BEDTIME 05/20/19 04/06/21 (Pravachol) Previous Rx's Medication Instructions Recorded meclizine 25 mg tablet 25 mg PO BID PRN motion sickness 03/02/22 #20 tabs Allergies Allergy/AdvReac Type Severity Reaction Status Date / Time rosuvastatin [ROSUVASTATIN] AdvReac Mild MYALGIAS Verified 03/02/22 12:27 Review of Systems Review of Systems ROS Unobtainable: All systems reviewed & are unremarkable except as noted in HPI and below Patient History Medical History Aortic valve insufficiency Depression Diverticulosis High cholesterol Surgical History H/O aortic valve replacement Social History household members: spouse Smoking Status: Never smoker alcohol intake: current substance use type: does not use Smoking Status: Never smoker alcohol intake frequency: holidays/special occasions only Substance Use Type: does not use Exam Initial Vital Signs Initial Vital Signs: Vital Signs Temperature 97.7 F 03/02/22 12:27 Pulse Rate 80 03/02/22 12:27 Respiratory Rate 15 03/02/22 12:27 Blood Pressure 157/76 H 03/02/22 12:27 Pulse Oximetry 99 03/02/22 12:27 Oxygen Delivery Method 03/02/22 12:27 Const General: cooperative, comfortable and well developed HENMD Head: normal to inspection and normocephalic Ears: TM's normal bilaterally Face and sinus: normal facial exam Mouth: oral mucosae normal Eyes General: Yes appearance normal, both eyes and all related structures Resp Effort & Inspection: normal respiratory effort Auscultation: clear to auscultation bilaterally Cardio Rate: regular rate Rhythm: regular rhythm GI Inspection: normal to inspection Skin General: no rashes or lesions noted Neuro General: patient alert, patient awake, patient oriented x3 and moves all extremities Other: Underwood-Hallpike negative. Extrem General: normal to inspection and capillary refill normal Scores GCS Pablo coma scale eye opening: Spontaneous Boody coma scale verbal response: Orientated Pablo coma scale motor response: Obey commands Boody coma scale total score: 15 Course Orders Ordered: ED Orders 03/02/22 12:30 EKG-12 Lead Stat 03/02/22 12:51 Complete Blood Count AUTO DIFF Stat Comprehensive Metabolic Panel Stat Lipase Stat Magnesium Stat Troponin & CK Cardiac Panel Stat Vital Signs Vital signs: Vital Signs - 8 hr 03/02/22 12:27 03/02/22 12:40 03/02/22 12:41 Temperature 97.7 F Pulse Rate 80 77 77 Respiratory Rate 15 23 Blood Pressure 157/76 H Pulse Oximetry 99 96 98 Oxygen Delivery Method Room Air 03/02/22 12:41 03/02/22 13:00 03/02/22 13:00 Temperature Pulse Rate 73 Respiratory Rate 17 Blood Pressure 149/79 H 129/73 Pulse Oximetry 94 Oxygen Delivery Method 03/02/22 13:30 03/02/22 13:30 03/02/22 14:00 Temperature Pulse Rate 74 Respiratory Rate Blood Pressure 145/80 H 142/73 H Pulse Oximetry 96 Oxygen Delivery Method 03/02/22 14:00 Temperature Pulse Rate 70 Respiratory Rate 20 Blood Pressure Pulse Oximetry 94 Oxygen Delivery Method Medical Decision Making Lab Data Lab results reviewed: Yes I reviewed the patient's lab results. Result diagrams: 03/02/22 12:51 03/02/22 12:51 Labs: Lab Results 03/02/22 03/02/22 03/02/22 Range/Units 12:51 12:51 12:51 WBC 6.2 (4.5-11.0) X10^3/uL RBC 4.91 (4.5-5.9) X10^6/uL Hgb 15.0 (13.5-17.5) g/dL Hct 43.3 (41-53) % MCV 88.2 (80-100) fL MCH 30.6 (26-34) PG MCHC 34.7 (30-36) % RDW 13.7 (11.6-14.8) % Plt Count 229 (150-400) X10^3/uL Neut % (Auto) 62.8 (50-75) % Lymph % (Auto) 22.5 L (25-40) % Frontier % (Auto) 12.4 (3-14) % Eos % (Auto) 1.6 L (2-4) % Baso % (Auto) 0.7 (0-2) % Neut # (Auto) 3900 (6404-4833) /uL Lymph # (Auto) 1400 (7980-5429) /uL Frontier # (Auto) 800 (0-900) /uL Eos # (Auto) 100 (0-450) /uL Baso # (Auto) 0 (0-100) /uL Sodium 138 (137-145) mmol/L Potassium 4.4 (3.4-5.1) mmol/L Chloride 103 (98-107) mmol/L Carbon Dioxide 29 (22-32) mmol/L BUN 16 (9-20) mg/dL Creatinine 0.93 (0.66-1.25) mg/dL Estimated GFR > 60 (>60) mL/min BUN/Creatinine Ratio 17.2 (6-22) Glucose 103 (80-110) mg/dL Calcium 9.4 (8.4-10.2) mg/dL Magnesium 2.0 (1.6-2.3) mg/dL Total Bilirubin 0.7 (0.2-1.3) mg/dL AST 30 (17-59) IU/L ALT 14 (<50) IU/L Alkaline Phosphatase 56 (38-126) U/L Total Creatine Kinase 55 (55-170) U/L CK-MB (CK-2) TNP CK-MB (CK-2) Rel Index TNP Troponin I < 0.012 (0.01-0.034) ng/mL Total Protein 7.3 (6.3-8.2) g/dL Albumin 4.5 (3.5-5.0) g/dL Globulin 2.8 (1.7-4.1) g/dL Albumin/Globulin Ratio 1.6 (1.0-2.8) Lipase 66 (23-300) U/L ECG Data Attestation: I personally reviewed and interpreted this ECG as follows: Prior ECG tracings: available for review Interpretation: Sinus rhythm Ventricular rate is 77 First degree AV block the NJ interval 212 milliseconds QRS 140 milliseconds Normal QTC Right bundle-branch block No ST T wave changes MDM Narrative Medical decision making narrative: Patient is asymptomatic here. I am unable to reproduce his symptoms the Underwood-Hallpike maneuver. It does appear that his symptoms of the past couple days are positional it is when he turns his head to the right. It is a room spinning/vertigo sensation that lasts for seconds and then completely resolves. We did interrogate his [employer] pacemaker. There have been no events since February 21 which is prior to the onset of any of his symptoms. He has no fevers. Is at baseline neurologic status. Low suspicion for CVA/TIA. I do have a suspicion that this is a peripheral vertigo. I will send home with a prescription for meclizine although not sure if this is going to be helpful as his symptoms when they do occur last for seconds and then resolved. He was also informed that he needs to make a follow-up appointment with the ear nose and throat providers. He is given strict return precautions. He ambulated around the emergency department baseline. He expressed understanding and agreement plan. Discharge Plan Departure Patient Disposition: Home Clinical Impression: Vertigo Instructions: DI for Vertigo Activity Restrictions/Additional Instructions: I do recommend that you continue to take all of your medications as directed. I recommend contacting the your nose and throat doctors at the number provided below for a follow-up. Use the meclizine as needed and as directed. Return to the emergency department for any new or worsening symptoms. Prescriptions: New meclizine 25 mg tablet 25 mg PO BID PRN (Reason: motion sickness) Qty: 20 0RF No Action amitriptyline 25 mg tablet 25 mg PO BID perphenazine 2 mg tablet 2 mg PO BID metoprolol succinate 25 mg tablet extended release 24 hr 75 mg PO BID pravastatin [Pravachol] 40 MG tablet 40 mg PO BEDTIME ezetimibe [Zetia] 10 MG tablet 10 mg PO QAM losartan 50 mg Tablet 50 mg PO QPM aspirin 81 mg Tablet,Delayed Release (Dr/Ec) 81 mg PO QAM pantoprazole [Protonix] 40 mg tablet,delayed release (DR/EC) 40 mg PO QAM Referrals: John Baker MD [Physician] - Nimo Castelan MD [Primary Care Provider] - Visit Report Forms: Patient Portal/API
[2022-03-02 13:45] LABS: Creatine Kinase 55 U/L (55-170); Lipase 66 U/L (23-300)
[2022-03-02 13:58] LABS: Troponin I < 0.012 ng/mL (0.01-0.034)
[2022-03-02 14:00] VITALS: BP 142/73; PULSE 70; RESP 20; O2SAT 94
== END 2022-03-02 14:47 | disposition home or self-care (01) ==
PROVIDERS: Emergency Provider Emergency Medicine; Family Provider Family Medicine; PCP Internal Medicine
DX: R42 Dizziness and giddiness (principal); Z95.0 Presence of cardiac pacemaker
CPT/HCPCS: 36415; 80053; 82550; 83690; 83735; 84484; 85025; 93005; 99283; 99284

== ENCOUNTER 2022-04-25 13:45 | Outpatient (RCR) | payer MEDICARE, OTHER, SELFPAY ==
--- NOTE | 2022-03-20 17:13 | PT.OIE ---
Current Diagnoses Benign paroxysmal vertigo, unspecified ear (03/20/22) Ataxia, unspecified (03/20/22) Past Medical History (Last Reviewed 03/02/22 @ 17:05 by Markell Andrade DO) Aortic valve insufficiency Depression Diverticulosis High cholesterol Past Surgical History (Last Reviewed 02/28/22 @ 18:53 by Dawna Gtz DO) H/O aortic valve replacement Visit Care Team Role Provider Type Nimo Castelan MD Family Provider Physician Primary Care Provider Specialty: Internal Medicine Address: [address] [place] [address], [facility] Email: [email or web address] John Baker MD Attending Provider Physician Referring Provider Specialty: Ear, Nose, Throat Address: [address] [place] [address], [address] Email: [email or web address] Physical Therapy Initial Evaluation PT-OP-A Visit Information Start: 03/16/22 16:06 Freq: Status: Active Protocol: Document 03/20/22 11:15 DCW (Rec: 03/20/22 11:56 DCW [id number]) Out-Patient Physical Therapy Visit Information Visit Information Visit Type Initial Evaluation Visit Start Time 11:15 Visit Stop Time 11:50 Total Visit Minutes 35 Visit Number 1 Number of INSIDE HORTICULTURAL SPECIALTY GROWER Visits 0 Evaluation Information Evaluation Date 03/20/22 PT-OP-B Current Condition Start: 03/16/22 16:06 Freq: Status: Active Protocol: Document 03/20/22 11:15 DCW (Rec: 03/20/22 17:13 DCW [id number]) Current Condition History of Current Condition History of Current Condition Pt is a 76 year old female complaining of a 2-3 week history of motion-induced vertigo. Pt reports episodes last less than 30 seconds, but can be quite severe. Symptoms are provoked by rolling in bed. Pt reports the first time it occurred, he went to the emergency department, and per pt's own reports, was misdiagnosed with dehydration. Vertigo continued with positional changes until he returned to the ED two days later, was diagnosed with vertigo, and given Meclizine. Pt reports this has helped tremendously, and his symptoms are much less severe currently. Pt's history is complicated with what he first describes as Parkinson's disease, but later notes that it's not actually Parkinson's, it just kind of mimics Parkinson's. It's actually PSP (Progressive Supranuclear Palsy), I just don't remember what PSP stands for. Pt also has a pacemaker , and reports that he had that checked out to make sure everything was functioning and not causing his dizziness, and reports that everything was working well. PT-OP-C Subjective Start: 03/16/22 16:06 Freq: Status: Active Protocol: Document 03/20/22 11:15 DCW (Rec: 03/20/22 11:56 DCW [id number]) OP-PT Subjective Patient Comments Patient Comments I was surprised with how severe the spinning could get. Patient Reported Progress Improving Patient Questionnaires Dizziness Handicap Inventory DHI Score 48% DHI Functional Impairment 40 to 59% Impaired (Score 40- 59) PT-OP-O Vestibular Start: 03/16/22 16:06 Freq: Status: Active Protocol: Document 03/20/22 11:15 DCW (Rec: 03/20/22 11:56 DCW [id number]) Vestibular Assessment Screening Tests Vestibular Artery Screen Negative Auditory Tests Bermudez Test Within normal limits Rinne Test Negative Air Conduction Results Equal Visual Testing Smooth Pursuits Horizontal WNL Smooth Pursuits Vertical WNL Saccades Horizontal WNL Saccades Vertical WNL Heave Test Positive Bilateral Thrust Head Positive Bilateral Positional Testing Monson-Hallpike Negative Left,Negative Right Rolling Test Negative Left,Negative Right PT-OP-T Assessment and Plan Start: 03/16/22 16:06 Freq: Status: Active Protocol: Document 03/20/22 11:15 DCW (Rec: 03/20/22 17:13 DCW [id number]) Physical Therapy Assessment Rehab Potential Rehabilitation Potential Good Evaluation Complexity Number of Personal Factors/Comorbidities 3 or More Number of Body Systems Impaired 1-2 Clinical Presentation at Evaluation Stable Impairments Impairments Vestibular Goals One Impairment Pt reports vertigo with positional changes Short Term Goal (STG) Pt to perform bed mobility with no instances of vertigo for at least one full week. STG Duration 04/25/22 Assessment Summary Assessment Pt presents with a negative vestibular examination at this time. Pt's subjective history is strongly suggestive of BPPV, however positional testing was entirely negative today. Pt does note that he has been feeling much better over the past week, and symptoms may have resolved on their own. No other testing suggestive of peripheral dysfunction. Pt is interesting in returning for follow-up appointment to ensure that positional testing today was not just a false negative. Additionally, did discuss with pt that he may benefit from specialized neuro rehab, specifically [facility], and pt is interested in further discussion on this possibility . Pt should benefit from further follow-up vestibular testing, with additional appointments and CRM as indicated. Physical Therapy Plan Frequency and Duration Frequency of Treatment Every Other Week Duration of Treatment Six weeks Plan of Care Start Date 03/20/22 Plan of Care End Date 05/01/22 Therapeutic Interventions Therapeutic Interventions Canalithic Repositioning, Manual Therapy,Neuromuscular Re-education,Vestibular Rehabilitation Next Visit Focus/Plan Next Note Type Treatment Note Next Visit Plan Follow-up positional testing, CRM as indicated
--- NOTE | 2022-03-20 17:14 | PT.OPPOC ---
Physical, Occupational & Speech Therapy At [facility] Current Diagnoses Benign paroxysmal vertigo, unspecified ear (03/20/22) Ataxia, unspecified (03/20/22) Visit Care Team Role Provider Type Nimo Castelan MD Family Provider Physician Primary Care Provider Specialty: Internal Medicine Address: [address] [place] [id number] Email: [email or web address] John Baker MD Attending Provider Physician Referring Provider Specialty: Ear, Nose, Throat Address: [address] [place] [address], [id number] Email: [email or web address] Plan Of Care PT-OP-T Assessment and Plan Start: 03/16/22 16:06 Freq: Status: Active Protocol: Document 03/20/22 11:15 DCW (Rec: 03/20/22 17:13 DCW [id number]) Physical Therapy Assessment Rehab Potential Rehabilitation Potential Good Evaluation Complexity Number of Personal Factors/Comorbidities 3 or More Number of Body Systems Impaired 1-2 Clinical Presentation at Evaluation Stable Impairments Impairments Vestibular Goals One Impairment Pt reports vertigo with positional changes Short Term Goal (STG) Pt to perform bed mobility with no instances of vertigo for at least one full week. STG Duration 04/25/22 Assessment Summary Assessment Pt presents with a negative vestibular examination at this time. Pt's subjective history is strongly suggestive of BPPV, however positional testing was entirely negative today. Pt does note that he has been feeling much better over the past week, and symptoms may have resolved on their own. No other testing suggestive of peripheral dysfunction. Pt is interesting in returning for follow-up appointment to ensure that positional testing today was not just a false negative. Additionally, did discuss with pt that he may benefit from specialized neuro rehab, specifically [facility], and pt is interested in further discussion on this possibility . Pt should benefit from further follow-up vestibular testing, with additional appointments and CRM as indicated. Physical Therapy Plan Frequency and Duration Frequency of Treatment Every Other Week Duration of Treatment Six weeks Plan of Care Start Date 03/20/22 Plan of Care End Date 05/01/22 Therapeutic Interventions Therapeutic Interventions Canalithic Repositioning, Manual Therapy,Neuromuscular Re-education,Vestibular Rehabilitation Next Visit Focus/Plan Next Note Type Treatment Note Next Visit Plan Follow-up positional testing, CRM as indicated Plan of Care Dates Plan of Care Start Date 03/20/22 Plan of Care End Date 05/01/22 Electronically Signed by: Chico Joseph, PT 03/20/22 1093 If you are in agreement with this Plan of Care, please return a signed and dated copy. I have reviewed this Plan of Care and certify that the skilled therapy services above are required to meet the patient?s needs. Physician Signature Date Printed Name and Credentials Clinical Instructor Signature Printed Name and Credentials
--- NOTE | 2022-03-20 17:25 | PT.OIE ---
Current Diagnoses Benign paroxysmal vertigo, unspecified ear (03/20/22) Ataxia, unspecified (03/20/22) Past Medical History (Last Reviewed 03/02/22 @ 17:05 by Markell Andrade DO) Aortic valve insufficiency Depression Diverticulosis High cholesterol Past Surgical History (Last Reviewed 02/28/22 @ 18:53 by Dawna Gtz DO) H/O aortic valve replacement Visit Care Team Role Provider Type Nimo Castelan MD Family Provider Physician Primary Care Provider Specialty: Internal Medicine Address: [address] [place] [address], [facility] Email: [email or web address] John Baker MD Attending Provider Physician Referring Provider Specialty: Ear, Nose, Throat Address: [address] [place] [address], [address] Email: [email or web address] Physical Therapy Initial Evaluation PT-OP-A Visit Information Start: 03/16/22 16:06 Freq: Status: Active Protocol: Document 03/20/22 11:15 DCW (Rec: 03/20/22 11:56 DCW [id number]) Out-Patient Physical Therapy Visit Information Visit Information Visit Type Initial Evaluation Visit Start Time 11:15 Visit Stop Time 11:50 Total Visit Minutes 35 Visit Number 1 Number of SUPERINTENDENT COLLIERY Visits 0 Evaluation Information Evaluation Date 03/20/22 PT-OP-B Current Condition Start: 03/16/22 16:06 Freq: Status: Active Protocol: Document 03/20/22 11:15 DCW (Rec: 03/20/22 17:13 DCW [id number]) Current Condition History of Current Condition History of Current Condition Pt is a 76 year old male complaining of a 2-3 week history of motion-induced vertigo. Pt reports episodes last less than 30 seconds, but can be quite severe. Symptoms are provoked by rolling in bed. Pt reports the first time it occurred, he went to the emergency department, and per pt's own reports, was misdiagnosed with dehydration. Vertigo continued with positional changes until he returned to the ED two days later, was diagnosed with vertigo, and given Meclizine. Pt reports this has helped tremendously, and his symptoms are much less severe currently. Pt's history is complicated with what he first describes as Parkinson's disease, but later notes that it's not actually Parkinson's, it just kind of mimics Parkinson's. It's actually PSP (Progressive Supranuclear Palsy), I just don't remember what PSP stands for. Pt also has a pacemaker , and reports that he had that checked out to make sure everything was functioning and not causing his dizziness, and reports that everything was working well. PT-OP-C Subjective Start: 03/16/22 16:06 Freq: Status: Active Protocol: Document 03/20/22 11:15 DCW (Rec: 03/20/22 11:56 DCW [id number]) OP-PT Subjective Patient Comments Patient Comments I was surprised with how severe the spinning could get. Patient Reported Progress Improving Patient Questionnaires Dizziness Handicap Inventory DHI Score 48% DHI Functional Impairment 40 to 59% Impaired (Score 40- 59) PT-OP-O Vestibular Start: 03/16/22 16:06 Freq: Status: Active Protocol: Document 03/20/22 11:15 DCW (Rec: 03/20/22 11:56 DCW [id number]) Vestibular Assessment Screening Tests Vestibular Artery Screen Negative Auditory Tests Bermudez Test Within normal limits Rinne Test Negative Air Conduction Results Equal Visual Testing Smooth Pursuits Horizontal WNL Smooth Pursuits Vertical WNL Saccades Horizontal WNL Saccades Vertical WNL Heave Test Positive Bilateral Thrust Head Positive Bilateral Positional Testing Thorpe-Hallpike Negative Left,Negative Right Rolling Test Negative Left,Negative Right PT-OP-T Assessment and Plan Start: 03/16/22 16:06 Freq: Status: Active Protocol: Document 03/20/22 11:15 DCW (Rec: 03/20/22 17:13 DCW [id number]) Physical Therapy Assessment Rehab Potential Rehabilitation Potential Good Evaluation Complexity Number of Personal Factors/Comorbidities 3 or More Number of Body Systems Impaired 1-2 Clinical Presentation at Evaluation Stable Impairments Impairments Vestibular Goals One Impairment Pt reports vertigo with positional changes Short Term Goal (STG) Pt to perform bed mobility with no instances of vertigo for at least one full week. STG Duration 04/25/22 Assessment Summary Assessment Pt presents with a negative vestibular examination at this time. Pt's subjective history is strongly suggestive of BPPV, however positional testing was entirely negative today. Pt does note that he has been feeling much better over the past week, and symptoms may have resolved on their own. No other testing suggestive of peripheral dysfunction. Pt is interesting in returning for follow-up appointment to ensure that positional testing today was not just a false negative. Additionally, did discuss with pt that he may benefit from specialized neuro rehab, specifically [facility], and pt is interested in further discussion on this possibility . Pt should benefit from further follow-up vestibular testing, with additional appointments and CRM as indicated. Physical Therapy Plan Frequency and Duration Frequency of Treatment Every Other Week Duration of Treatment Six weeks Plan of Care Start Date 03/20/22 Plan of Care End Date 05/01/22 Therapeutic Interventions Therapeutic Interventions Canalithic Repositioning, Manual Therapy,Neuromuscular Re-education,Vestibular Rehabilitation Next Visit Focus/Plan Next Note Type Treatment Note Next Visit Plan Follow-up positional testing, CRM as indicated
--- NOTE | 2022-04-25 20:56 | PT.OTN ---
Current Diagnoses Benign paroxysmal vertigo, unspecified ear (04/25/22) Ataxia, unspecified (04/25/22) Physical Therapy Treatment Note PT-OP-A Visit Information Start: 03/16/22 16:06 Freq: Status: Active Protocol: Document 04/25/22 13:47 AMB (Rec: 04/25/22 14:37 AMB [id number]) Out-Patient Physical Therapy Visit Information Visit Information Visit Type Treatment Note Visit Start Time 13:45 Visit Stop Time 14:30 Total Visit Minutes 45 Visit Number 2 PT-OP-B Current Condition Start: 03/16/22 16:06 Freq: Status: Active Protocol: Document 03/20/22 11:15 DCW (Rec: 03/20/22 17:13 DCW [id number]) Current Condition History of Current Condition History of Current Condition Pt is a 76 year old male complaining of a 2-3 week history of motion-induced vertigo. Pt reports episodes last less than 30 seconds, but can be quite severe. Symptoms are provoked by rolling in bed. Pt reports the first time it occurred, he went to the emergency department, and per pt's own reports, was misdiagnosed with dehydration. Vertigo continued with positional changes until he returned to the ED two days later, was diagnosed with vertigo, and given Meclizine. Pt reports this has helped tremendously, and his symptoms are much less severe currently. Pt's history is complicated with what he first describes as Parkinson's disease, but later notes that it's not actually Parkinson's, it just kind of mimics Parkinson's. It's actually PSP (Progressive Supranuclear Palsy), I just don't remember what PSP stands for. Pt also has a pacemaker , and reports that he had that checked out to make sure everything was functioning and not causing his dizziness, and reports that everything was working well. PT-OP-C Subjective Start: 03/16/22 16:06 Freq: Status: Active Protocol: Document 04/25/22 13:47 AMB (Rec: 04/25/22 14:37 AMB [id number]) OP-PT Subjective Patient Comments Patient Comments Spinning just yesterday, once in a while there is very mild movement of the room, the spells were quite severe, and now mild. Most days don't feel it at all, but yesterday. When in bed, and turning head to right. PT-OP-O Vestibular Start: 03/16/22 16:06 Freq: Status: Active Protocol: Document 03/20/22 11:15 DCW (Rec: 03/20/22 11:56 DCW [id number]) Vestibular Assessment Screening Tests Vestibular Artery Screen Negative Auditory Tests Bermudez Test Within normal limits Rinne Test Negative Air Conduction Results Equal Visual Testing Smooth Pursuits Horizontal WNL Smooth Pursuits Vertical WNL Saccades Horizontal WNL Saccades Vertical WNL Heave Test Positive Bilateral Thrust Head Positive Bilateral Positional Testing Clementina-Hallpike Negative Left,Negative Right Rolling Test Negative Left,Negative Right PT-OP-Q Treatments Start: 03/16/22 16:06 Freq: Status: Active Protocol: Document 04/27/22 20:48 AMB (Rec: 04/27/22 20:56 AMB [id number]) Neuro Re-Education Treatment Other Activities 1 Details Clementina Hallpike and supine roll test Comments All negative for nystagmus or dizziness PT-OP-T Assessment and Plan Start: 03/16/22 16:06 Freq: Status: Active Protocol: Document 04/27/22 20:48 AMB (Rec: 04/27/22 20:56 AMB [id number]) Physical Therapy Assessment Goals One Impairment Pt reports vertigo with positional changes Short Term Goal (STG) Pt to perform bed mobility with no instances of vertigo for at least one full week. STG Duration MET Assessment Summary Assessment Darin again presented with negative vestibular evlaution. Has overall had less vestibular symptoms lately, but continues to have intermittent instances of mild dizziness. Did encourage him to consider further PT treatment of his supranuclear palsy. Physical Therapy Plan Discharge Physical Therapy Discharge Reasons Goals Met
== END 2022-05-01 13:16 ==
LOC: PHYS 13:45
PROVIDERS: Family Provider Internal Medicine; PCP Internal Medicine; Referring Provider Otolaryngology; Visit Provider Otolaryngology
DX: H81.10 Benign paroxysmal vertigo, unspecified ear (principal); R27.0 Ataxia, unspecified
CPT/HCPCS: 97112; 97161

== ENCOUNTER 2022-08-17 14:40 | Emergency (ER) | payer MEDICARE, OTHER, SELFPAY ==
[2022-08-17] VITALS (21 sets, daily range): BP systolic 112–158; BP diastolic 57–69; PULSE 84–111; RESP 18–26; TEMP 37.3–39.2; O2SAT 92–94; BMI 26.5
[2022-08-17] MEDS: ACETAMINOPHEN 325 MG TABLET 975 MG PO (15:03)
--- NOTE | 2022-08-17 15:03 | DI.RAD.S_ITS ---
PROCEDURE: XR CHEST 1V INDICATIONS: cough TECHNIQUE: One view of the chest was acquired. COMPARISON: [facility], CR, XR CHEST 1V, 02/28/2022, 17:10. FINDINGS: Surgical changes and devices: Left chest wall 2 lead cardiac pacing device. Median sternotomy and valvuloplasty changes. Lungs and pleura: There is similar left costophrenic angle blunting and pleural thickening, likely chronic scarring although small pleural effusion cannot be strictly excluded. Lungs and pleural spaces otherwise clear. Mediastinum: Mediastinal contours appear normal. Heart size is normal. Bones and chest wall: No suspicious bony lesions. Overlying soft tissues appear unremarkable. IMPRESSION: Chronic left costophrenic angle blunting which is nonspecific, potentially representing at pleural effusion although pleural thickening and scarring is favored. Dictated by: Jarek Cr M.D. on 08/17/2022 at 14:32 Approved by: Jarek Cr M.D. on 08/17/2022 at 14:33
--- NOTE | 2022-08-17 15:08 | DI.CT.S_ITS ---
PROCEDURE: CT HEAD/BRAIN WO CON INDICATIONS: Fall/injury TECHNIQUE: Noncontrast 4.5 mm thick angled axial sections acquired from the foramen magnum to the vertex, with coronal and sagittal reformats. For radiation dose reduction, the following was used: automated exposure control, adjustment of mA and/or kV according to patient size. COMPARISON: None. FINDINGS: Image quality: Excellent. CSF spaces: Basal cisterns are patent. No extra-axial fluid collections. Ventricles are normal in size and shape. Brain: Mild global cerebral volume loss. Moderate chronic microvascular ischemic changes. No midline shift. No intracranial masses or hemorrhage. Malone-white matter interface is normal. Skull and face: Calvarium and visualized facial bones are intact, without suspicious lesions. Sinuses: Visualized sinuses and mastoids are predominantly clear. IMPRESSION: No acute intracranial finding. Mild global cerebral volume loss and moderate chronic microvascular ischemic changes. Dictated by: Jarek Cr M.D. on 08/17/2022 at 14:29 Approved by: Jarek Cr M.D. on 08/17/2022 at 14:30
--- NOTE | 2022-08-17 15:08 | DI.CT.S_ITS ---
PROCEDURE: CT CERVICAL SPINE WO CON INDICATIONS: Fall/injury TECHNIQUE: Noncontrast 3 mm thick sections acquired from the skull base to the T4 level. Sagittal and coronal reformats were then constructed. For radiation dose reduction, the following was used: automated exposure control, adjustment of mA and/or kV according to patient size. COMPARISON: [facility], CT, CT CERVICAL SPINE WITHOUT CONTRAST, 03/10/2019, 15:28. FINDINGS: Image quality: Excellent. Bones: No fractures or dislocations. Visualized superior ribs are intact. Soft tissues: Prevertebral soft tissues are normal in thickness. No paravertebral hematomas. No apical pneumothoraces. IMPRESSION: No CT evidence of acute traumatic cervical spine injury. Dictated by: Jarek Cr M.D. on 08/17/2022 at 14:30 Approved by: Jarek Cr M.D. on 08/17/2022 at 14:32
--- NOTE | 2022-08-17 15:09 | ED.FALL ---
HPI - Fall General Chief Complaint: Dizziness Stated Complaint: multiple GLF d/t dizziness Time Seen by Provider: 08/17/22 14:55 Source: patient Mode of arrival: EMS History of Present Illness HPI Narrative: Patient brought in by ambulance from [facility] shelter. For dizziness and multiple falls today. There have been outbreak at the facility with a viral infection. Patient has been dizzy and off balance today. He does recall 1 of the events he is walking across the room and got dizzy and fell backwards. No loss of consciousness. He remembers the fall. Denies any neck pain back pain limb pain pelvis pain hip pain. Has abrasion to the top of his head. Patient is not on any blood thinners. Rectal temp 102.5?. Patient has a pacemaker. Denies any recent chest pain. Has had body aches fever and chills he states though. Denies any dyspnea. Related Data Home Medications Medication Instructions Recorded Confirmed amitriptyline 25 mg tablet 25 mg PO BID 05/20/19 04/06/21 aspirin 81 mg tablet,delayed 81 mg PO QAM 05/20/19 04/06/21 release ezetimibe 10 mg tablet (Zetia) 10 mg PO QAM 05/20/19 04/06/21 losartan 50 mg tablet 50 mg PO QPM 05/20/19 04/06/21 metoprolol succinate 25 mg 75 mg PO BID 05/20/19 04/06/21 tablet,extended release 24 hr pantoprazole 40 mg tablet,delayed 40 mg PO QAM 05/20/19 04/06/21 release (Protonix) perphenazine 2 mg tablet 2 mg PO BID 05/20/19 05/20/19 pravastatin 40 mg tablet 40 mg PO BEDTIME 05/20/19 04/06/21 (Pravachol) Previous Rx's Medication Instructions Recorded meclizine 25 mg tablet 25 mg PO BID PRN motion sickness 03/02/22 #20 tabs Allergies Allergy/AdvReac Type Severity Reaction Status Date / Time rosuvastatin [ROSUVASTATIN] AdvReac Mild MYALGIAS Verified 08/17/22 14:45 Review of Systems Review of Systems Narrative: GENERAL: Positive chills, fatigue, malaise, fever, sweats. HEENT: negative sinus pain, ear pain, sore throat RESPIRATORY: negative dyspnea, cough CARDIOVASCULAR: negative chest pain, palpitations GASTROINTESTINAL: negative nausea, vomiting, abdominal pain : negative dysuria, frequency, hematuria MUSCULOSKELETAL: negative muscle or bony pain SKIN: negative rash, skin lesions, positive skin injury NEUROLOGIC: negative weakness, numbness, positive dizziness ROS Unobtainable: All systems reviewed & are unremarkable except as noted in HPI and below Patient History Medical History (Updated 08/17/22 @ 17:59 by Carter Goodwin MD) Aortic valve insufficiency Depression Diverticulosis High cholesterol Surgical History H/O aortic valve replacement Social History household members: spouse Smoking Status: Never smoker alcohol intake: current substance use type: does not use Smoking Status: Never smoker alcohol intake frequency: holidays/special occasions only Substance Use Type: does not use Exam Narrative Exam Narrative: GENERAL: in no distress, not toxic not dyspneic HEAD: Normocephalic., there is small abrasion to the top of the occipital scalp. No crepitus or step-off or tenderness. EYES: Pupils equal round No scleral icterus. ENT: Mucous membranes moist. NECK: Trachea midline. No midline tenderness or step-off of the cervicothoracic or lumbar spine. CARDIOVASCULAR: Regular rate and rhythm without murmurs RESPIRATORY: Clear to auscultation. Breath sounds equal bilaterally. No wheezes, rales, or rhonchi. GASTROINTESTINAL: Abdomen soft, non-tender EXTREMITIES: No gross deformities. Nontender bilateral shoulders elbows wrists pelvis hips knees and ankles. BACK: No flank tenderness. No skin injury abrasion or bruising to the back. NEURO: AOx3, clear speech no facial droop light touch intact bilateral face hands and legs. 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 Negative pronator drift. SKIN: Warm and dry PSYCH: Not anxious, is cooperative Initial Vital Signs Initial Vital Signs: Vital Signs Temperature 99.1 F 08/17/22 14:46 Pulse Rate 111 H 08/17/22 14:46 Respiratory Rate 24 08/17/22 14:46 Blood Pressure 118/58 L 08/17/22 14:46 Pulse Oximetry 94 08/17/22 14:46 Oxygen Delivery Method 08/17/22 14:46 Course Course Course Narrative: No new issues during course of stay Orders Ordered: ED Orders 08/17/22 14:45 Complete Blood Count AUTO DIFF Stat Comprehensive Metabolic Panel Stat Respiratory Panel (Film Array) Stat 08/17/22 14:56 EKG-12 Lead Routine 08/17/22 15:03 XR chest 1V Stat 08/17/22 15:08 CT cervical spine wo con Stat CT head/brain wo con Stat Discontinued Medications Acetaminophen (Acetaminophen 325 Mg Tablet) 975 mg PO NOW ONE Stop: 08/17/22 15:01 Last Admin: 08/17/22 15:03 Dose: 975 mg Documented By: MARLO Bacitracin (Bacitracin Oint 0.9 Gm Pckt) 1 applic TOP NOW ONE Stop: 08/17/22 17:05 Last Admin: 08/17/22 17: Dose: 1 applic Documented By: MARLO Diphtheria/Tetanus/Acell Pertussis (Tet,Diph,Pertuss(Acell),Vac/Pf 0.5 Ml Syringe) 0.5 ml IM .ONCE ONE Stop: 08/17/22 15:04 Last Admin: 08/17/22 15:35 Dose: 0.5 ml Documented By: MARLO Sodium Chloride (Normal Saline 0.9%) 500 mls @ 1,000 mls/hr IV BOLUS ONE Stop: 08/17/22 15:32 Last Infusion: 08/17/22 17:18 Dose: 0 mls/hr Documented By: Admin: 08/17/22 15:36 Dose: 1,000 mls/hr Documented By: MARLO Reevaluation(s) Reevaluation #1: Heart rate has improved. Patient had Tylenol for the fever. Patient feels much better after IV fluids and fever control. Reviewed results with them that he is COVID positive and needs to quarantine 10 days. He understands. He needs to check his temperature regularly as this is likely his source of feeling weak and dizzy with the fever. Once fever is controlled he will have more strength. Return precautions reviewed with him. Not requiring supplemental oxygen, not requiring admission Time: 17:54 Vital Signs Vital signs: Vital Signs - 8 hr 08/17/22 14:46 08/17/22 15:00 08/17/22 14:47 Temperature 99.1 F 102.5 F H Pulse Rate 111 H 107 H Respiratory Rate 24 Blood Pressure 118/58 L Pulse Oximetry 94 92 Oxygen Delivery Method Room Air 08/17/22 14:49 08/17/22 14:49 08/17/22 15:03 Temperature 102.5 F H Pulse Rate 107 H Respiratory Rate 21 Blood Pressure 118/58 L Pulse Oximetry 94 Oxygen Delivery Method 08/17/22 15:44 08/17/22 15:45 08/17/22 15:00 Temperature 101.7 F H 101.7 F H Pulse Rate Respiratory Rate Blood Pressure 141/66 H Pulse Oximetry Oxygen Delivery Method 08/17/22 15:00 08/17/22 15:23 08/17/22 15:23 Temperature Pulse Rate 107 H 104 H Respiratory Rate 22 Blood Pressure 146/62 H Pulse Oximetry 93 93 Oxygen Delivery Method 08/17/22 15:30 08/17/22 15:31 08/17/22 15:31 Temperature Pulse Rate 109 H 108 H Respiratory Rate Blood Pressure 158/65 H Pulse Oximetry 92 92 Oxygen Delivery Method 08/17/22 16:00 08/17/22 16:01 08/17/22 16:01 Temperature Pulse Rate 101 H 100 H Respiratory Rate Blood Pressure 133/60 Pulse Oximetry 93 93 Oxygen Delivery Method 08/17/22 16:30 08/17/22 16:30 08/17/22 17:00 Temperature Pulse Rate 95 H Respiratory Rate 21 Blood Pressure 112/59 L 115/60 Pulse Oximetry 93 Oxygen Delivery Method 08/17/22 17:00 Temperature Pulse Rate 93 H Respiratory Rate 24 Blood Pressure Pulse Oximetry 93 Oxygen Delivery Method MDM - Fall Differential Diagnosis Differential diagnosis: Likely other (Skin abrasion/scalp contusion/viral infection/dehydration/UTI) Lab Data Result diagrams: 08/17/22 14:45 08/17/22 14:45 Labs: Lab Results 08/17/22 08/17/22 08/17/22 Range/Units 14:45 14:45 14:45 WBC 11.1 H (4.5-11.0) X10^3/uL RBC 5.11 (4.5-5.9) X10^6/uL Hgb 15.3 (13.5-17.5) g/dL Hct 45.3 (41-53) % MCV 88.6 (80-100) fL MCH 29.9 (26-34) PG MCHC 33.8 (30-36) % RDW 13.5 (11.6-14.8) % Plt Count 203 (150-400) X10^3/uL Neut % (Auto) 71.5 (50-75) % Lymph % (Auto) 14.9 L (25-40) % Meade % (Auto) 12.9 (3-14) % Eos % (Auto) 0.4 L (2-4) % Baso % (Auto) 0.3 (0-2) % Neut # (Auto) 7900 H (0226-1066) /uL Lymph # (Auto) 1700 (3992-3560) /uL Meade # (Auto) 1400 H (0-900) /uL Eos # (Auto) 0 (0-450) /uL Baso # (Auto) 0 (0-100) /uL Sodium 140 (137-145) mmol/L Potassium 3.8 (3.4-5.1) mmol/L Chloride 101 (98-107) mmol/L Carbon Dioxide 24 (22-32) mmol/L BUN 16 (9-20) mg/dL Creatinine 1.20 (0.66-1.25) mg/dL Estimated GFR > 60 (>60) mL/min BUN/Creatinine Ratio 13.3 (6-22) Glucose 122 H (80-110) mg/dL Calcium 9.3 (8.4-10.2) mg/dL Total Bilirubin 0.7 (0.2-1.3) mg/dL AST 33 (17-59) IU/L ALT 31 (<50) IU/L Alkaline Phosphatase 73 (38-126) U/L Total Protein 7.5 (6.3-8.2) g/dL Albumin 4.4 (3.5-5.0) g/dL Globulin 3.1 (1.7-4.1) g/dL Albumin/Globulin Ratio 1.4 (1.0-2.8) Chlamy pneumoniae PCR (Not Detect) Adenovirus (PCR) (Not Detect) B. pertussis DNA (PCR) (Not Detecte) B.parapertussis DNA PCR (Not Detecte) Coronavirus OC43 (PCR) (Not Detect) Coronavirus HKU1 (PCR) (Not Detect) Coronavirus 229E (PCR) (Not Detect) SARS-CoV-2 (PCR) Cancelled Coronavirus NL63 (PCR) (Not Detect) Human Metapneumovir PCR (Not Detect) Influenza A (RT-PCR) Cancelled Influenza Type A (PCR) (Not Detect) Influenza B (RT-PCR) Cancelled Influenza Type B (PCR) (Not Detect) M. pneumoniae (PCR) (Not Detect) Parainfluenza 1 (PCR) (Not Detect) Parainfluenza 2 (PCR) (Not Detect) Parainfluenza 3 (PCR) (Not Detect) Parainfluenza 4 (PCR) (Not Detect) RSV (PCR) Cancelled Entero/Rhino (PCR) (Not Detect) 08/17/22 Range/Units 14:45 WBC (4.5-11.0) X10^3/uL RBC (4.5-5.9) X10^6/uL Hgb (13.5-17.5) g/dL Hct (41-53) % MCV (80-100) fL MCH (26-34) PG MCHC (30-36) % RDW (11.6-14.8) % Plt Count (150-400) X10^3/uL Neut % (Auto) (50-75) % Lymph % (Auto) (25-40) % Meade % (Auto) (3-14) % Eos % (Auto) (2-4) % Baso % (Auto) (0-2) % Neut # (Auto) (0561-0163) /uL Lymph # (Auto) (6141-1433) /uL Meade # (Auto) (0-900) /uL Eos # (Auto) (0-450) /uL Baso # (Auto) (0-100) /uL Sodium (137-145) mmol/L Potassium (3.4-5.1) mmol/L Chloride (98-107) mmol/L Carbon Dioxide (22-32) mmol/L BUN (9-20) mg/dL Creatinine (0.66-1.25) mg/dL Estimated GFR (>60) mL/min BUN/Creatinine Ratio (6-22) Glucose (80-110) mg/dL Calcium (8.4-10.2) mg/dL Total Bilirubin (0.2-1.3) mg/dL AST (17-59) IU/L ALT (<50) IU/L Alkaline Phosphatase (38-126) U/L Total Protein (6.3-8.2) g/dL Albumin (3.5-5.0) g/dL Globulin (1.7-4.1) g/dL Albumin/Globulin Ratio (1.0-2.8) Chlamy pneumoniae PCR Not detected (Not Detect) Adenovirus (PCR) Not detected (Not Detect) B. pertussis DNA (PCR) Not detected (Not Detecte) B.parapertussis DNA PCR Not detected (Not Detecte) Coronavirus OC43 (PCR) Not detected (Not Detect) Coronavirus HKU1 (PCR) Not detected (Not Detect) Coronavirus 229E (PCR) Not detected (Not Detect) SARS-CoV-2 (PCR) Detected H Coronavirus NL63 (PCR) Not detected (Not Detect) Human Metapneumovir PCR Not detected (Not Detect) Influenza A (RT-PCR) Influenza Type A (PCR) Not detected (Not Detect) Influenza B (RT-PCR) Influenza Type B (PCR) Not detected (Not Detect) M. pneumoniae (PCR) Not detected (Not Detect) Parainfluenza 1 (PCR) Not detected (Not Detect) Parainfluenza 2 (PCR) Not detected (Not Detect) Parainfluenza 3 (PCR) Not detected (Not Detect) Parainfluenza 4 (PCR) Not detected (Not Detect) RSV (PCR) Not detected Entero/Rhino (PCR) Not detected (Not Detect) Imaging Data CT scan - head: Radiologist's Impression: [place] [address] CT Scan Report Signed Patient: Darin Clark MR#: [id number] : 1945 Acct:[id number] Age/Sex: 77 / M Date of Service: 08/17/22 Loc: ED Accession Number: [id number] ?? Procedure: CT head/brain wo con Ordering Provider: Carter Goodwin MD PROCEDURE:? CT HEAD/BRAIN WO CON ? INDICATIONS:? Fall/injury ? TECHNIQUE:? Noncontrast 4.5 mm thick angled axial sections acquired from the foramen magnum to the vertex, with coronal and sagittal reformats.? For radiation dose reduction, the following was used:? automated exposure control, adjustment of mA and/or kV according to patient size.? ? COMPARISON:? None. ? FINDINGS:? Image quality:? Excellent.? ? CSF spaces:? Basal cisterns are patent.? No extra-axial fluid collections.? Ventricles are normal in size and shape.? ? Brain:? Mild global cerebral volume loss.? Moderate chronic microvascular ischemic changes.? No midline shift.? No intracranial masses or hemorrhage.? Malone-white matter interface is normal.? ? Skull and face:? Calvarium and visualized facial bones are intact, without suspicious lesions.? ? Sinuses:? Visualized sinuses and mastoids are predominantly clear.? ? IMPRESSION:? No acute intracranial finding.? Mild global cerebral volume loss and moderate chronic microvascular ischemic changes. ? ? Dictated by: Jarek Cr M.D. on 08/17/2022 at 14:29 ? ? Approved by: Jarek Cr M.D. on 08/17/2022 at 14:30 ? CT - cervical spine: Radiologist's Impression: [place] [address] CT Scan Report Signed Patient: Darin Clark MR#: [id number] : 1945 Acct:[id number] Age/Sex: 77 / M Date of Service: 08/17/22 Loc: ED Accession Number: [id number] ?? Procedure: CT cervical spine wo con Ordering Provider: Carter Goodwin MD PROCEDURE:? CT CERVICAL SPINE WO CON ? INDICATIONS:? Fall/injury ? TECHNIQUE:? Noncontrast 3 mm thick sections acquired from the skull base to the T4 level.? Sagittal and coronal reformats were then constructed.? For radiation dose reduction, the following was used:? automated exposure control, adjustment of mA and/or kV according to patient size.? ? COMPARISON:? [facility], CT, CT CERVICAL SPINE WITHOUT CONTRAST, 03/10/2019, 15:28. ? FINDINGS:? Image quality:? Excellent.? ? Bones:? No fractures or dislocations.? Visualized superior ribs are intact.? ? Soft tissues:? Prevertebral soft tissues are normal in thickness.? No paravertebral hematomas.? No apical pneumothoraces.? ? ? IMPRESSION:? No CT evidence of acute traumatic cervical spine injury. ? Dictated by: Jarek Cr M.D. on 08/17/2022 at 14:30 ? ? Approved by: Jarek Cr M.D. on 08/17/2022 at 14:32 ? Chest x-ray: Radiologist's Impression: [address] [address] XRay Report Signed Patient: Darin Clark MR#: [id number] : 1945 Acct:[id number] Age/Sex: 77 / M Date of Service: 08/17/22 Loc: ED Accession Number: [id number] ?? Procedure: XR chest 1V Ordering Provider: Carter Goodwin MD PROCEDURE:? XR CHEST 1V ? INDICATIONS:? cough ? TECHNIQUE:? One view of the chest was acquired.? ? COMPARISON:? [facility], CR, XR CHEST 1V, 02/28/2022, 17:10. ? FINDINGS:? ? Surgical changes and devices:? Left chest wall 2 lead cardiac pacing device.? Median sternotomy and valvuloplasty changes. ? Lungs and pleura:? There is similar left costophrenic angle blunting and pleural thickening, likely chronic scarring although small pleural effusion cannot be strictly excluded.? Lungs and pleural spaces otherwise clear. ? Mediastinum:? Mediastinal contours appear normal.? Heart size is normal.? ? Bones and chest wall:? No suspicious bony lesions.? Overlying soft tissues appear unremarkable.? ? IMPRESSION:? Chronic left costophrenic angle blunting which is nonspecific, potentially representing at pleural effusion although pleural thickening and scarring is favored.? ? ? Dictated by: Jarek Cr M.D. on 08/17/2022 at 14:32 ? ? Approved by: Jarek Cr M.D. on 08/17/2022 at 14:33 ? ECG Data Interpretation: Ventricular paced rhythm rate [address] elevation or depression MDM Narrative Medical decision making narrative: Appropriate for discharge home. Patient weakness and falls likely related to fever and COVID infection. Patient likely dehydrated/volume depleted and with fever feeling very weak and causing him to fall. Informed him to be sure to keep well hydrated. Also check his temperature regularly when he feels weak and may have a fever. And not to be walking until fever is confirmed. Not requiring supplemental oxygen and appropriate for discharge home. Quarantine precautions reviewed with him with COVID infection. He is awake alert orient x4 at this time. Return precautions reviewed with him. He desires agrees for discharge home Wound care instructions given to him for his scalp wound. Discharge Plan Departure Patient Disposition: Home Clinical Impression: COVID-19 virus infection, Abrasion of scalp without infection Instructions: DI for Closed Head Injury, DI for Abrasion, DI for COVID-19 (Suspected or Confirmed ) Activity Restrictions/Additional Instructions: You must quarantine for 10 days starting today. Keep well hydrated as you have a fever and COVID infection. Make sure you check your temperature regularly as a fever may make you feel dizzy and weak. You may take Tylenol to help for the fever. Return if worse if any questions or concerns. See family doctor next week for re-evaluation. Return if any trouble breathing or if any trouble walking. Prescriptions: No Action amitriptyline 25 mg tablet 25 mg PO BID perphenazine 2 mg tablet 2 mg PO BID metoprolol succinate 25 mg tablet extended release 24 hr 75 mg PO BID pravastatin [Pravachol] 40 MG tablet 40 mg PO BEDTIME ezetimibe [Zetia] 10 MG tablet 10 mg PO QAM losartan 50 mg Tablet 50 mg PO QPM aspirin 81 mg Tablet,Delayed Release (Dr/Ec) 81 mg PO QAM pantoprazole [Protonix] 40 mg tablet,delayed release (DR/EC) 40 mg PO QAM meclizine 25 mg tablet 25 mg PO BID PRN (Reason: motion sickness) Qty: 20 0RF
[2022-08-17 15:25] LABS: Alanine Aminotransferase 31 IU/L (<50); Albumin 4.4 g/dL (3.5-5.0); Albumin Globulin Ratio 1.4 (1.0-2.8); Alkaline Phosphatase 73 U/L (38-126); Aspartate Aminotransferase 33 IU/L (17-59); BUN Creatinine Ratio 13.3 (6-22); Bilirubin Total 0.7 mg/dL (0.2-1.3); Blood Urea Nitrogen 16 mg/dL (9-20); Calcium 9.3 mg/dL (8.4-10.2); Carbon Dioxide 24 mmol/L (22-32); Chloride 101 mmol/L (98-107); Estimated Glomerular Filt Rate > 60 mL/min (>60); Globulin 3.1 g/dL (1.7-4.1); Glucose 122 mg/dL (80-110); HEMOLYSIS 15 (0-50); Potassium 3.8 mmol/L (3.4-5.1); Sodium 140 mmol/L (137-145); Total Protein 7.5 g/dL (6.3-8.2)
[2022-08-17 15:27] LABS: Add Manual Diff / Slide Review NO; Basophils Absolute Auto 0 /uL (0-100); Basophils Percent Auto 0.3 % (0-2); Eosinophils Absolute Auto 0 /uL (0-450); Eosinophils Percent Auto 0.4 % (2-4); Hematocrit 45.3 % (41-53); Hemoglobin 15.3 g/dL (13.5-17.5); Lymphocytes Absolute Auto 1700 /uL (1100-4500); Lymphocytes Percent Auto 14.9 % (25-40); Mean Corpuscular HGB Conc 33.8 % (30-36); Mean Corpuscular Hemoglobin 29.9 PG (26-34); Mean Corpuscular Volume 88.6 fL (80-100); Monocytes Absolute Auto 1400 /uL (0-900); Monocytes Percent Auto 12.9 % (3-14); Neutrophils Absolute Auto 7900 /uL (1500-7000); Neutrophils Percent Auto 71.5 % (50-75); Platelet Count 203 X10^3/uL (150-400); Red Blood Cell Count 5.11 X10^6/uL (4.5-5.9); Red Cell Distribution Width 13.5 % (11.6-14.8); White Blood Cell Count 11.1 X10^3/uL (4.5-11.0)
[2022-08-17] MEDS: TET,DIPH,PERTUSS(ACELL),VAC/PF 0.5 ML SYRINGE IM (15:35)
[2022-08-17] MEDS: SODIUM CHLORIDE 0.9% 500 ML 1000 ML IV (15:36)
[2022-08-17 16:27] LABS: Adenovirus Not Detected (Not Detect)
[2022-08-17 16:28] LABS: B. parapertussis Not Detected (Not Detecte); Bordetella pertussis Not Detected (Not Detecte); Chlamydophila pneumoniae Not Detected (Not Detect); Coronavirus 229E Not Detected (Not Detect); Coronavirus HKU1 Not Detected (Not Detect); Coronavirus NL 63 Not Detected (Not Detect); Coronavirus OC43 Not Detected (Not Detect); Human Metapneumovirus Not Detected (Not Detect); Human Rhinovirus/Enterovirus Not Detected (Not Detect); Influenza A Not Detected (Not Detect); Influenza B Not Detected (Not Detect); Mycoplasma pneumoniae Not Detected (Not Detect); Parainfluenza Virus 1 Not Detected (Not Detect); Parainfluenza Virus 2 Not Detected (Not Detect); Parainfluenza Virus 3 Not Detected (Not Detect); Parainfluenza Virus 4 Not Detected (Not Detect); Respiratory Syncytial Virus Not Detected (Not Detect); SARS- CoV-2 Detected (Not Detecte)
[2022-08-17] MEDS: BACITRACIN OINT 0.9 GM PCKT 1 APPLIC TOP (17:22)
--- NOTE | 2022-08-17 19:36 | CM.SWNOTE ---
ED SW Note Pt is 77 year old male who presents from [facility] with Covid and multiple falls. Pt has Medicare A+B and [place]. SW consulted because pt may not be safe to discharge home without supervision. SW reviewed chart and discussed case with foam charger. Pt's bedside RN called pt's DPOA who lives in the [facility] and is unable to catch a ferry to meet pt at [facility]. Pt does not have any other friends or family available for support. Per RN, pt is weak and unable to ambulate independently. SW informed RN that pt will need to wait for PT evaluation vs going home with DPOA tomorrow once she is able to catch [place] to [place]. ANSELMO Estrada
--- NOTE | 2022-08-18 01:25 | PC.NURSE ---
Report received - assumed care of pt at this time
--- NOTE | 2022-08-18 02:15 | PC.NURSE ---
Resting quietly in NAD - no needs voiced - resting with eyes closed in darkened room
--- NOTE | 2022-08-18 03:00 | PC.NURSE ---
No changes in pt status
--- NOTE | 2022-08-18 03:45 | PC.NURSE ---
No changes at this time
[2022-08-18 04:00] VITALS: BP 117/59; PULSE 89; RESP 16; TEMP 37.9; O2SAT 95
--- NOTE | 2022-08-18 04:30 | PC.NURSE ---
Resting quietly with eyes closed - no needs voiced - PWD with respirations equal and unlabored bilaterally
--- NOTE | 2022-08-18 05:30 | PC.NURSE ---
No changes in pt status
--- NOTE | 2022-08-18 06:30 | PC.NURSE ---
No changes in pt status
--- NOTE | 2022-08-18 07:17 | PC.NURSE ---
Report to Carmela RN - care relinquished at this time
--- NOTE | 2022-08-18 07:19 | PC.NURSE ---
Report to Carmela RN - care relinquished at this time
[2022-08-18 07:50] VITALS: BP 115/59; PULSE 93; RESP 14; O2SAT 94
--- NOTE | 2022-08-18 10:40 | PT.IIE ---
Surgical History (Last Reviewed 08/17/22 @ 15:11 by Carter Goodwin MD) H/O aortic valve replacement Medical History (Last Reviewed 08/17/22 @ 15:11 by Carter Goodwin MD) Aortic valve insufficiency Depression Diverticulosis High cholesterol Physical Therapy Inpatient Evaluation/Re-Eval M1 PT/OT-IP Prior Functional Status Start: 08/18/22 12:33 Freq: Status: Active Protocol: Document 08/18/22 10:40 DLM (Rec: 08/18/22 12:54 DL [id number]) Medical Review Prior Functional Status Medical History Reviewed Yes Diet/Fluid Consistency Regular Communication WFL, wears glasses Mobility and Gait Independent with 4WW, has parkinsons symptoms during gait Activities of Daily Living and IADL's has help with cleaning and meals at [facility] Social History Household Members spouse Living Arrangements Assisted Living Number of Floors (Floors) One Floor Number of Stairs To Enter/Railing? none Home Environment High Toilet,Walk in Shower Home Equipment Four Wheel Walker,Grab Bars Near Toilet,Grab Bars In Shower Employment Status Retired Additional Social History Comment he reports his favorite chair at home is low and he is having increased difficulty getting in/out M2 PT-IP Current Condition Start: 08/18/22 12:33 Freq: Status: Active Protocol: Document 08/18/22 10:40 DLM (Rec: 08/18/22 12:54 DL [id number]) Physical Therapy Current Condition Current Condition Evaluation Date 08/18/22 Treatment Diagnosis Weakness, COVID + Onset Date 08/17/22 M3 PT-IP Subjective Start: 08/18/22 12:33 Freq: Status: Active Protocol: Document 08/18/22 10:40 DLM (Rec: 08/18/22 12:54 DL [id number]) Subjective Physical Therapy Visit Type Type Initial Evaluation Visit Start Time 10:15 Visit Stop Time 10:40 Total Visit Minutes 25 Number of ARCHITECTURE INSTRUCTOR Visits 0 Physical Therapy Visit Comments Patient Comments He reports he is feeling better, no dizziness today Patient Goals Discharge back home Therapy Pain Assessment Pain Present Pain Present Denied Pain M4 PT-IP Mobility and Gait Start: 08/18/22 12:33 Freq: Status: Active Protocol: Document 08/18/22 10:40 DLM (Rec: 08/18/22 12:54 DL [id number]) PT-Transfer Assessment Sit to and From Stand Sit to and from Stand Independent,Use of Upper Extremities Equipment Transfer Assistive Device Gait Belt,4 Wheeled Walker Transfers Transfer Destination Chair Transfer Technique Stand Step Pivot Transfer Ability Level of Assist Independent,Use of Upper Extremities Comments Mobility Comments pt is up in chair and does not want to get back on stretcher mild decreased control of descent into chair Gait Assessment Gait Gait Assistance Required: Independent Distance (Feet) 150 Assistive Devices Assistive Device Gait Belt,4 Wheeled Walker Gait Deviations General Gait Pattern Festinating Factors Limiting Gait Function Factors Limiting Gait Function Decreased Activity Tolerance Comments Gait Comments he reports he feels more tired than normal for him, he has festinating gait pattern when approaching objects such as his chair, able to improve his gait cadance while ambulating in open area such as the cespedes Stair Climbing Assessment Comments Stair Climbing Comments no stairs at home PT-Balance Assessment Sitting Balance and Reactions Static Sitting Balance Ability Normal Dynamic Sitting Balance Ability Good Standing Balance and Reactions Static Standing Balance Ability Good Dynamic Standing Balance Ability Good Device Used 4WW M5 PT-IP Objective Assessments Start: 08/18/22 12:33 Freq: Status: Active Protocol: Document 08/18/22 10:40 DL (Rec: 08/18/22 12:54 [facility] [id number]) Orientation Orientation/Cognition Level of Alertness Alert Orientation Name,Age,Birthday,Month,Date, Year,Day of Week,Place, Situation Language Function Ability No Deficits Noted Safety Awareness Understands Safety Issues Memory Description No Deficits Noted Gross Range of Motion Upper Extremity ROM Assessment Within Functional Limits Impairments mild rigidity/stiffness Lower Extremity ROM Assessment Within Functional Limits Impairments mild rigidity/stiffness Strength Upper Extremity Strength Assessment Within Functional Limits Lower Extremity Strength Assessment Within Functional Limits Coordination Assessment Assessment Foot Tapping Test Moderate Impairment Coordination Comments intermittent tremors Sensation Assessment Sensation Gross Sensation WNL Muscle Tone Muscle Tone WNL No Comments Muscle Tone Comments mild rigidity M6 PT-IP Treatment Start: 08/18/22 12:33 Freq: Status: Active Protocol: Document 08/18/22 10:40 DL (Rec: 08/18/22 12:54 [facility] [id number]) Physical Therapy Treatment Other Treatments Other Treatment Performed educated pt about home safety issues and to manage his Parkinsons symptoms including freezing and festinating M7 PT-IP Assessment and Plan Start: 08/18/22 12:33 Freq: Status: Active Protocol: Document 08/18/22 10:40 DLM (Rec: 08/18/22 12:54 DLM [id number]) PT Summary Assessment and Plan Potential Rehabilitation Potential Good Status of Condition at Evaluation Evolving Summary Progress Towards Goals Safe For Discharge Assessment Summary Darin is alert and sitting up in the chair this visit. He reports he is feeling better. He is able to ambulate in the cespedes with his 4WW. No dizziness this visit. He is progressing well today. He appears safe to discharge home to his assisted living apt. He has Parkinsons-like movement patterns that complicate his mobility but he reports they are at his baseline. He could benefit from home health PT to help modify his home environment and decrease his fall risks. Frequency of Treatment Frequency Of Treatment Discharge Precautions Other Precautions parkinsons like symptoms Recommendations To Nursing Amount of Assist Needed [place] Assistance Discharge Recommendations PT Discharge Recommendations Home with Assistance Other Discharge Recommendations support of staff at [facility] Transportation Needs at Discharge Private Vehicle
[2022-08-18 10:55] VITALS: BP 138/78; PULSE 88; RESP 16; TEMP 37.3; O2SAT 96
== END 2022-08-18 11:05 | disposition home or self-care (01) ==
PROVIDERS: Emergency Medicine; Emergency Provider Emergency Medicine
DX: U07.1 COVID-19 (principal); S00.01XA Abrasion of scalp, initial encounter; R29.6 Repeated falls; W18.30XA Fall on same level, unspecified, initial encounter; Z23 Encounter for immunization; I95.9 Hypotension, unspecified
CPT/HCPCS: 36415; 70450; 71045; 72125; 80053; 81003; 85025; 87633; 90471; 93005; 93010; 97161; 99284; 90715

== ENCOUNTER 2023-04-16 22:00 | Emergency (ER) | payer MEDICARE, OTHER, SELFPAY ==
[2023-04-16 22:00] VITALS: BMI 27.1
--- NOTE | 2023-04-16 22:03 | DI.CT.S_ITS ---
PROCEDURE: CT CERVICAL SPINE WO CON INDICATIONS: fall with injury, etoh, neck pain TECHNIQUE: Noncontrast 3 mm thick sections acquired from the skull base to the T4 level. Sagittal and coronal reformats were then constructed. For radiation dose reduction, the following was used: automated exposure control, adjustment of mA and/or kV according to patient size. COMPARISON: [facility], CT, CT CERVICAL SPINE WO CON, 08/17/2022, 15:12. FINDINGS: Image quality: Excellent. Bones: No fractures or subluxation. Minimal retrolisthesis demonstrated at C2-C3, C3-C4, C4-C5. There is multilevel degenerative disc disease and facet joint arthropathy. Visualized superior ribs are intact. Soft tissues: Prevertebral soft tissues are normal in thickness. No paravertebral hematomas. No apical pneumothoraces. IMPRESSION: 1. No acute fracture or subluxation. Dictated by: Aly Gu M.D. on 04/16/2023 at 22:42 Approved by: Aly Gu M.D. on 04/16/2023 at 22:45
--- NOTE | 2023-04-16 22:03 | DI.RAD.S_ITS ---
PROCEDURE: XR SHOULDER RT MIN 2V INDICATIONS: fall with shoulder pain TECHNIQUE: 2 views of the shoulder were acquired. COMPARISON: None. FINDINGS: Bones: There is subluxation of the acromioclavicular joint with superior displacement of distal clavicle by greater than 1 shaft width relative to the acromion. There is associated widening of the coracoclavicular space. Findings are consistent with a type 5 AC joint injury. No definite fractures. Visualized ribs appear intact. Soft tissues: There is a small calcification along the distal rotator cuff consistent with calcific tendinitis. IMPRESSION: 1. Subluxation of the acromioclavicular joint compatible with a type 5 AC joint injury. 2. Calcific tendinitis of the distal rotator cuff. Dictated by: Aly Gu M.D. on 04/16/2023 at 23:02 Approved by: Aly Gu M.D. on 04/16/2023 at 23:05
--- NOTE | 2023-04-16 22:03 | DI.CT.S_ITS ---
PROCEDURE: CT HEAD/BRAIN WO CON INDICATIONS: fall with head injury on Plavix TECHNIQUE: Noncontrast 4.5 mm thick angled axial sections acquired from the foramen magnum to the vertex, with coronal and sagittal reformats. For radiation dose reduction, the following was used: automated exposure control, adjustment of mA and/or kV according to patient size. COMPARISON: [facility], CT, CT HEAD/BRAIN WO CON, 08/17/2022, 15:12. FINDINGS: Image quality: Excellent. CSF spaces: Basal cisterns are patent. No extra-axial fluid collections. There is mild cerebral volume loss, with resultant ventricular and sulcal prominence. Brain: No intracranial hemorrhage, mass, or mass effect. There are subcortical, periventricular and deep white matter hypodensities consistent with moderate chronic small vessel ischemic changes. The hare-white matter junction appears preserved. There is intracranial internal carotid artery atherosclerosis. Skull and face: Calvarium and visualized facial bones appear intact, without suspicious lesions. Sinuses: Visualized sinuses and mastoids are clear. IMPRESSION: 1. No acute intracranial abnormality. 2. Moderate chronic white matter small vessel ischemic changes and mild cerebral volume loss. Dictated by: Aly Gu M.D. on 04/16/2023 at 22:41 Approved by: Aly Gu M.D. on 04/16/2023 at 22:42
[2023-04-16 22:06] VITALS: BP 161/88; PULSE 75; RESP 16; TEMP 36.6; O2SAT 98; BMI 27.1
[2023-04-16 22:24] VITALS: BP 151/79; PULSE 72
[2023-04-16 22:30] VITALS: BP 137/75; PULSE 72; RESP 10
[2023-04-16 23:00] VITALS: PULSE 78; RESP 14; O2SAT 94
[2023-04-16 23:01] VITALS: BP 157/80; PULSE 78; RESP 12; O2SAT 94
--- NOTE | 2023-04-16 23:26 | ED_ITS ---
HPI - Fall General Chief Complaint: Fall Stated Complaint: Fall on thinners Time Seen by Provider: 04/16/23 22:03 Source: EMS Mode of arrival: EMS History of Present Illness HPI Narrative: 77M nonsmoker with history of GERD, hypertension, hyperlipidemia is on Plavix and presents by air medical transport for evaluation of a ground level fall with resultant head injury. He had been in normal state of health and denies any prodromal symptoms such as dizziness, weakness or lightheadedness. He has some gait disturbance at baseline and typically gets around with a walker. He lost his balance and fell striking the right side of his forehead. He had no loss of consciousness, nausea or vomiting. No blurred vision or trouble with speech, he does have some midline neck pain and right shoulder pain. He is placed in C- spine precautions and transported for evaluation. He is on Plavix and is activated as a modified trauma given fall with head injury as well as suspected injury Related Data Home Medications Medication Instructions Recorded Confirmed amitriptyline 25 mg tablet 25 mg PO BID 05/20/19 08/18/22 aspirin 81 mg tablet,delayed 81 mg PO QAM 05/20/19 08/18/22 release ezetimibe 10 mg tablet (Zetia) 10 mg PO QAM 05/20/19 08/18/22 losartan 50 mg tablet 50 mg PO BID 05/20/19 08/18/22 metoprolol succinate 25 mg 75 mg PO BID 05/20/19 08/18/22 tablet,extended release 24 hr pantoprazole 40 mg tablet,delayed 40 mg PO QAM 05/20/19 08/18/22 release (Protonix) perphenazine 2 mg tablet 2 mg PO BID 05/20/19 08/18/22 escitalopram oxalate 10 mg tablet 5 mg PO QAM 08/18/22 08/18/22 rosuvastatin 5 mg tablet 5 mg PO BEDTIME 08/18/22 08/18/22 sennosides 8.6 mg tablet (senna) 8.6 mg PO BID 08/18/22 08/18/22 spironolactone 25 mg tablet 12.5 mg PO QAM 08/18/22 08/18/22 Allergies Allergy/AdvReac Type Severity Reaction Status Date / Time rosuvastatin [ROSUVASTATIN] AdvReac Mild MYALGIAS Verified 04/16/23 22:10 Review of Systems Review of Systems Narrative: GENERAL: See HPI HEENT: Denies sinus pain, ear pain, sore throat, difficulty swallowing, dizziness. RESPIRATORY: Denies dyspnea, cough, wheezing, hemoptysis, sputum. CARDIOVASCULAR: Denies chest pain, palpitations, orthopnea, edema, GASTROINTESTINAL: Denies nausea, vomiting, abdominal pain, diarrhea, constipation, melena. : Denies dysuria, frequency, incontinence, hematuria, urinary retention. MUSCULOSKELETAL: See HPI SKIN: Denies rash, skin lesions, or other NEUROLOGIC: Denies weakness, headache, numbness, change in speech, confusion, seizures, incoordination. PSYCHIATRIC: No concerning psychosocial issues. 12 point review of systems is negative except for those stated above Patient History Medical History Aortic valve insufficiency Depression Diverticulosis High cholesterol Surgical History H/O aortic valve replacement Social History household members: spouse Smoking Status: Never smoker alcohol intake: current substance use type: does not use Smoking Status: Never smoker alcohol intake frequency: 0-2 drinks per day Substance Use Type: does not use Exam Narrative Exam Narrative: GENERAL: [77] year old patient appears stated age. Well-developed patient, in mild distress. GCS 15 HEAD: Large hematoma right forehead, no active bleeding, no evidence of depressed skull fracture EYES: Pupils equal round and reactive. No hyphema Extraocular motions intact. No scleral icterus. No injection or drainage. ENT: Nose without bleeding, purulent drainage. No nasal septal hematoma Throat without erythema, tonsillar hypertrophy or exudate. Airway patent. NECK: Midline tenderness, no step-offs or crepitance, no change with axial load CARDIOVASCULAR: Regular rate and rhythm without murmurs, gallops, or rubs. RESPIRATORY: Clear to auscultation. Breath sounds equal bilaterally. No wheezes, rales, or rhonchi. GASTROINTESTINAL: Abdomen soft, non-tender, nondistended. EXTREMITIES: Limited range of motion of right shoulder secondary to pain, no obvious mechanical obstruction, closed, isolated and neurovascularly intact BACK: Nontender without deformity or crepitance. No flank tenderness. NEURO: AOx3. SKIN: No rash or erythema of visible areas Initial Vital Signs Initial Vital Signs: Vital Signs Temperature 97.9 F 04/16/23 22:06 Pulse Rate 75 04/16/23 22:06 Respiratory Rate 16 04/16/23 22:06 Blood Pressure 161/88 H 04/16/23 22:06 Pulse Oximetry 98 04/16/23 22:06 Oxygen Delivery Method Room Air 04/16/23 22:06 Procedures Orthopedic Splinting/Casting Injury #1: Side: right Upper Extremity Injury Location: shoulder Upper Extremity Immobilizer: sling/shoulder immobilizer Post splinting neuro exam: intact Post splinting vascular exam: intact Placed by: Nursing Course Orders Ordered: ED Orders 04/16/23 22:03 CT cervical spine wo con Stat CT head/brain wo con Stat XR shoulder RT min 2V Stat Vital Signs Vital signs: Vital Signs - 8 hr 04/16/23 22:24 04/16/23 22:24 04/16/23 22:30 Pulse Rate 72 Respiratory Rate Blood Pressure 151/79 H 137/75 Pulse Oximetry 04/16/23 22:30 04/16/23 23:00 04/16/23 23:01 Pulse Rate 72 78 78 Respiratory Rate 10 L 14 12 Blood Pressure Pulse Oximetry 94 94 04/16/23 23:01 04/16/23 23:30 04/16/23 23:30 Pulse Rate 80 Respiratory Rate 21 Blood Pressure 157/80 H 140/61 Pulse Oximetry MDM - Fall MDM Narrative Medical decision making narrative: [77] year old patient presents with fall, head injury on Plavix Multiple etiologies for patient's symptoms considered including, but not limited to: Contusion versus skull fracture versus intracranial hemorrhage versus other [] Prior Charts reviewed in our EMR Primary Historian: patient Imaging reviewed: CT of head with no evidence of fracture or intracranial hemorrhage. CT of C-spine without fracture, right shoulder demonstrates AC separation Patient's symptoms improved over duration of stay with above-stated therapies. Findings and discharge diagnosis discussed with patient/family followed by verbalization of understanding Return precautions discussed with patient/family whom verbalize understanding of diagnosis and plan Discharge Plan Departure Patient Disposition: Home Clinical Impression: Contusion of forehead, shoulder Instructions: How to Prevent Falls Activity Restrictions/Additional Instructions: *You have been diagnosed with [fall with forehead contusion and right shoulder separation] *What to do: *Please continue to take your regular medications as directed. [ ] New medication prescriptions sent to your pharmacy: [ ] [ ] New medication written as a paper prescription [x] Tylenol and occasional Motrin for pain *Please follow up with [Gisella ] of [facility] in 2-3 days, call for an appointment. Let them know you were seen in the Emergency Department and that we ask that you be seen in follow up. We will electronically transmit a record of today's note if your PCP is in our system *Return to Emergency Department if you should have any new, worsening or concerning symptoms, such as [worsening pain, significant swelling, cold extremities, numbness, tingling, weakness or other bothersome symptoms Prescriptions: No Action amitriptyline 25 mg tablet 25 mg PO BID perphenazine 2 mg tablet 2 mg PO BID metoprolol succinate 25 mg tablet extended release 24 hr 75 mg PO BID ezetimibe [Zetia] 10 MG tablet 10 mg PO QAM losartan 50 mg Tablet 50 mg PO BID aspirin 81 mg Tablet,Delayed Release (Dr/Ec) 81 mg PO QAM pantoprazole [Protonix] 40 mg tablet,delayed release (DR/EC) 40 mg PO QAM sennosides [senna] 8.6 mg Tablet 8.6 mg PO BID spironolactone 25 mg tablet 12.5 mg PO QAM escitalopram oxalate 10 mg tablet 5 mg PO QAM rosuvastatin 5 mg tablet 5 mg PO BEDTIME Referrals: Ashutosh Obando MD [Physician] - Stand Alone Forms: Patient Portal/API
[2023-04-16 23:30] VITALS: BP 140/61; PULSE 80; RESP 21
== END 2023-04-17 00:25 | disposition home or self-care (01) ==
PROVIDERS: Emergency Provider Emergency Medicine
DX: S00.83XA Contusion of other part of head, initial encounter (principal); M54.2 Cervicalgia; S43.101A Unspecified dislocation of right acromioclavicular joint, initial encounter; W18.30XA Fall on same level, unspecified, initial encounter
CPT/HCPCS: 70450; 72125; 73030; 99284

== ENCOUNTER 2023-05-21 07:04 | Emergency (ER) | payer MEDICARE, OTHER, SELFPAY ==
--- NOTE | 2023-05-21 07:03 | DI.CT.S_ITS ---
PROCEDURE: CT CERVICAL SPINE WO CON INDICATIONS: fall TECHNIQUE: Noncontrast 3 mm thick sections acquired from the skull base to the T4 level. Sagittal and coronal reformats were then constructed. For radiation dose reduction, the following was used: automated exposure control, adjustment of mA and/or kV according to patient size. COMPARISON: [facility], CT, CT CERVICAL SPINE WO CON, 08/17/2022, 15:12. [facility], CT, CT CERVICAL SPINE WO CON, 04/16/2023, 22:14. FINDINGS: Image quality: Excellent. Bones: No fractures or dislocations. Degenerative disc disease, moderate at C6-C7, and mild at other levels. Bilateral facet arthropathy, most pronounced at C4-C5. 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 Visualized superior ribs are intact. Soft tissues: Prevertebral soft tissues are normal in thickness. No paravertebral hematomas. No apical pneumothoraces. There is a Port-A-Cath in the left anterior chest. IMPRESSION: 1. No cervical spine fractures. 2. Degenerative changes in cervical spine as described. Dictated by: Graciela Sung M.D. on 05/21/2023 at 7:59 Approved by: Graciela Sung M.D. on 05/21/2023 at 8:01
--- NOTE | 2023-05-21 07:03 | DI.CT.S_ITS ---
PROCEDURE: CT FACIAL BONES WO CON INDICATIONS: fall TECHNIQUE: Noncontrast 2.5 mm thick axial images acquired from the mandible through the frontal sinuses, with coronal and sagittal reformatting. For radiation dose reduction, the following was used: automated exposure control, adjustment of mA and/or kV according to patient size. COMPARISON: [facility], CT, CT HEAD/BRAIN WO CON, 04/16/2023, 22:14. [facility], CT, CT HEAD/BRAIN WO CON, 05/21/2023, 7:05. FINDINGS: Image quality: Excellent. Bones and teeth: Orbital chaves are intact. Sinus chaves show no fracture or deformity. Question nondisplaced nasal bone fracture. The septum is intact. Visualized portions of the mandible demonstrate no fractures or subluxation. Zygomatic arches are intact. Pterygoid plates are intact. Visualized portions of the skull base and auditory canals are intact. Sinuses: The left frontal sinus is opacified. There is a mucous retention cyst in the left ethmoidal sinus. Mild left maxillary sinus mucosal thickening. Mastoid air cells are aerated. Soft tissues: No edema, masses, or fluid collections. No enlarged lymph nodes. No soft tissue lacerations or debris. Vascular: Visualized vascular structures appear normal in the absence of contrast. Bony vascular foramina and canals are intact. IMPRESSION: 1. Suspect nondisplaced nasal bone fracture of indeterminate chronicity. 2. Left frontal, ethmoidal and maxillary sinus disease. Dictated by: Graciela Sung M.D. on 05/21/2023 at 8:01 Approved by: Graciela Sung M.D. on 05/21/2023 at 8:06
--- NOTE | 2023-05-21 07:03 | DI.CT.S_ITS ---
PROCEDURE: CT HEAD/BRAIN WO CON INDICATIONS: fall TECHNIQUE: Noncontrast 4.5 mm thick angled axial sections acquired from the foramen magnum to the vertex, with coronal and sagittal reformats. For radiation dose reduction, the following was used: automated exposure control, adjustment of mA and/or kV according to patient size. COMPARISON: [facility], CT, CT HEAD/BRAIN WO CON, 04/16/2023, 22:14. FINDINGS: Image quality: Excellent. CSF spaces: Basal cisterns are patent. No extra-axial fluid collections. The ventricles are symmetric in size and shape. Brain: No intracranial bleeds or masses. There is a moderate cerebral volume loss for age, with resultant ventricular and sulcal prominence. There are severe periventricular and deep white matter chronic small vessel ischemic changes. There is intracranial internal carotid artery atherosclerosis. Skull and face: Calvarium and visualized facial bones appear intact, without suspicious lesions. Sinuses: Visualized sinuses and mastoids are clear. IMPRESSION: 1. No acute intracranial abnormalities. 2. Cerebral volume loss and chronic microvascular ischemic changes. Dictated by: Graciela Sung M.D. on 05/21/2023 at 7:58 Approved by: Graciela Sung M.D. on 05/21/2023 at 7:58
[2023-05-21 07:12] VITALS: BP 131/62; PULSE 71; O2SAT 95
[2023-05-21 07:14] VITALS: BP 131/62; PULSE 70; RESP 18; TEMP 36.3; O2SAT 95; BMI 27.8
--- NOTE | 2023-05-21 07:36 | ED.FALL ---
HPI - Fall General Chief Complaint: Fall Stated Complaint: fall Time Seen by Provider: 05/21/23 07:12 Source: patient and EMS Mode of arrival: EMS History of Present Illness HPI Narrative: Patient is a 77-year-old male history of neurologic disease similar to Parkinson's, cardiac valve replacement, hypertension, hyperlipidemia on aspirin presenting today as a fall. He reports that he literally rolled out of bed. He hit his head and face on bedside table. He reports that he thinks a glass broke. He fell previously in his complaining of some right shoulder pain he says it is not much worse but it is sore. He did not lose consciousness no nausea or vomiting. No numbness tingling or weakness. He has some bleeding from his right eye and right side of his face. No other obvious injuries at this time. He has no chest pain abdominal pain. He denies feeling poorly he is previously had dizzy episodes he denies any dizziness at this time. Related Data Home Medications Medication Instructions Recorded Confirmed amitriptyline 25 mg tablet 25 mg PO BID 05/20/19 08/18/22 aspirin 81 mg tablet,delayed 81 mg PO QAM 05/20/19 08/18/22 release ezetimibe 10 mg tablet (Zetia) 10 mg PO QAM 05/20/19 08/18/22 losartan 50 mg tablet 50 mg PO BID 05/20/19 08/18/22 metoprolol succinate 25 mg 75 mg PO BID 05/20/19 08/18/22 tablet,extended release 24 hr pantoprazole 40 mg tablet,delayed 40 mg PO QAM 05/20/19 08/18/22 release (Protonix) perphenazine 2 mg tablet 2 mg PO BID 05/20/19 08/18/22 escitalopram oxalate 10 mg tablet 5 mg PO QAM 08/18/22 08/18/22 rosuvastatin 5 mg tablet 5 mg PO BEDTIME 08/18/22 08/18/22 sennosides 8.6 mg tablet (senna) 8.6 mg PO BID 08/18/22 08/18/22 spironolactone 25 mg tablet 12.5 mg PO QAM 08/18/22 08/18/22 Allergies Allergy/AdvReac Type Severity Reaction Status Date / Time rosuvastatin [ROSUVASTATIN] AdvReac Mild MYALGIAS Verified 04/16/23 22:10 Review of Systems Review of Systems ROS Unobtainable: All systems reviewed & are unremarkable except as noted in HPI and below Patient History Medical History (Updated 05/21/23 @ 08:33 by Dawna Gtz DO) Aortic valve insufficiency Depression Diverticulosis High cholesterol Surgical History H/O aortic valve replacement Social History household members: spouse Smoking Status: Never smoker alcohol intake: current substance use type: does not use Smoking Status: Never smoker alcohol intake frequency: 0-2 drinks per day Substance Use Type: does not use Exam Initial Vital Signs Initial Vital Signs: Vital Signs Pulse Rate 71 05/21/23 07:12 Blood Pressure 131/62 05/21/23 07:12 Pulse Oximetry 95 05/21/23 07:12 GENERAL: Alert pleasant 77-year-old male HEENT: Head atraumatic no crepitations no depressions, right eye some periorbital contusion 1 cm laceration fairly superficial over right eye lid but is bleeding. Extraocular movements intact right subconjunctival hemorrhage. Right eye was treated with proparacaine, stained with fluorescein. No dye uptake. No foreign body. Irrigated with normal saline EOMI. No entrapment CARDIOVASCULAR: Regular rate and rhythm without murmurs, rubs or gallops. RESPIRATORY: Breath sounds equal bilaterally, no wheezes rales or rhonchi. ABDOMEN: Soft, nontender. Normoactive bowel sounds all 4 quadrants. No guarding or rebound. EXTREMITIES: Normal range of motion, no clubbing or edema. Neurovascularly intact. Pelvis stable NEUROLOGICAL: Alert and oriented x4.Normal gait and speech. Cranial nerves II through XII grossly intact. 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 strength equal bilaterally SKIN: Right side of face 2 cm laceration medially by nose 1 cm laceration superficial right eye lid increase of eye Procedures Laceration Repair Laceration 1: Side (If applicable): right Size (cm): 2 Description: linear Depth: simple, single layer Local Anesthetic: lidocaine 1% and with epi Amount of anesthesia used (mL): 2 Pre-repair: wound explored, irrigated extensively and deep structures intact Skin layer closed with: other (chromic gut) Skin layer suture size: 5-0 Number of sutures: 2 Laceration 2: Site: face (right upper eye lid) Side (If applicable): right Size (cm): 0.5 Description: linear Depth: simple, single layer Local Anesthetic: lidocaine 1% and with epi Amount of anesthesia used (mL): 0.5 Pre-repair: wound explored, irrigated extensively and deep structures intact Skin layer closed with: other (chromic gut) Skin layer suture size: 5-0 Number of sutures: 2 Technique: simple, interrupted Course Orders Ordered: ED Orders 05/21/23 07:03 CT cervical spine wo con Stat CT facial bones wo con Stat CT head/brain wo con Stat Discontinued Medications Fluorescein Sodium (Fluorescein 1 Mg Strip) 1 mg EYE-BOTH NOW ONE Stop: 05/21/23 08:06 Last Admin: 05/21/23 08:11 Dose: 1 mg Documented By: QUINTIN Proparacaine HCl (Proparacaine 0.5% Ophth Aubree) 1 drops EYE-BOTH NOW ONE Stop: 05/21/23 08:06 Last Admin: 05/21/23 08:11 Dose: 1 drops Documented By: QUINTIN Vital Signs Vital signs: Vital Signs - 8 hr 05/21/23 07:14 05/21/23 07:12 05/21/23 07:12 Temperature 97.3 F L Pulse Rate 70 71 Respiratory Rate 18 Blood Pressure 131/62 131/62 Pulse Oximetry 95 95 Oxygen Delivery Method Room Air 05/21/23 08:12 05/21/23 08:30 05/21/23 08:30 Temperature Pulse Rate 70 70 Respiratory Rate Blood Pressure 127/61 Pulse Oximetry 95 94 Oxygen Delivery Method 05/21/23 09:00 05/21/23 09:00 Temperature Pulse Rate 72 Respiratory Rate Blood Pressure 134/66 Pulse Oximetry 93 Oxygen Delivery Method MDM - Fall Imaging Data CT scan - head: Radiologist's Impression: PROCEDURE:? CT HEAD/BRAIN WO CON ? INDICATIONS:? fall ? TECHNIQUE:? Noncontrast 4.5 mm thick angled axial sections acquired from the foramen magnum to the vertex, with coronal and sagittal reformats.? For radiation dose reduction, the following was used:? automated exposure control, adjustment of mA and/or kV according to patient size.? ? COMPARISON:? [facility], CT, CT HEAD/BRAIN WO CON, 04/16/2023, 22:14. ? FINDINGS:? Image quality:? Excellent.? ? CSF spaces:? Basal cisterns are patent.? No extra-axial fluid collections.? The ventricles are symmetric in size and shape.? ? Brain:? No intracranial bleeds or masses.? There is a moderate cerebral volume loss for age, with resultant ventricular and sulcal prominence.? There are severe periventricular and deep white matter chronic small vessel ischemic changes.? There is intracranial internal carotid artery atherosclerosis.? ? Skull and face:? Calvarium and visualized facial bones appear intact, without suspicious lesions.? ? Sinuses:? Visualized sinuses and mastoids are clear.? ? IMPRESSION:? ? 1. No acute intracranial abnormalities. ? 2. Cerebral volume loss and chronic microvascular ischemic changes. ? ? ? Dictated by: Graciela Sung M.D. on 05/21/2023 at 7:58 ? ? Approved by: Graciela Sung M.D. on 05/21/2023 at 7:58 CT - cervical spine: Radiologist's Impression: PROCEDURE:? CT CERVICAL SPINE WO CON ? INDICATIONS:? fall ? TECHNIQUE:? Noncontrast 3 mm thick sections acquired from the skull base to the T4 level.? Sagittal and coronal reformats were then constructed.? For radiation dose reduction, the following was used:? automated exposure control, adjustment of mA and/or kV according to patient size.? ? COMPARISON:? [facility], CT, CT CERVICAL SPINE WO CON, 08/17/2022, 15:12.? [facility], CT, CT CERVICAL SPINE WO CON, 04/16/2023, 22:14. ? FINDINGS:? Image quality:? Excellent.? ? Bones:? No fractures or dislocations.? Degenerative disc disease, moderate at C6-C7, and mild at other levels.? Bilateral facet arthropathy, most pronounced at C4-C5.? 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 Visualized superior ribs are intact.? ? Soft tissues:? Prevertebral soft tissues are normal in thickness.? No paravertebral hematomas.? No apical pneumothoraces.? There is a Port-A-Cath in the left anterior chest. ? ? IMPRESSION:? ? 1. No cervical spine fractures.? 2. Degenerative changes in cervical spine as described.? Dictated by: Graciela Sung M.D. on 05/21/2023 at 7:59 ?? ct face: Radiologist's Impression: PROCEDURE:? CT FACIAL BONES WO CON ? INDICATIONS:? fall ? TECHNIQUE:? Noncontrast 2.5 mm thick axial images acquired from the mandible through the frontal sinuses, with coronal and sagittal reformatting.? For radiation dose reduction, the following was used:? automated exposure control, adjustment of mA and/or kV according to patient size.? ? COMPARISON:? [facility], CT, CT HEAD/BRAIN WO CON, 04/16/2023, 22:14.? [facility], CT, CT HEAD/BRAIN WO CON, 05/21/2023, 7:05. ? FINDINGS:? Image quality:? Excellent.? ? Bones and teeth:? Orbital chaves are intact.? Sinus chaves show no fracture or deformity.? Question nondisplaced nasal bone fracture.? The septum is intact.? Visualized portions of the mandible demonstrate no fractures or subluxation.? Zygomatic arches are intact.? Pterygoid plates are intact.? Visualized portions of the skull base and auditory canals are intact.? ? Sinuses:? The left frontal sinus is opacified.? There is a mucous retention cyst in the left ethmoidal sinus.? Mild left maxillary sinus mucosal thickening.? Mastoid air cells are aerated.? ? Soft tissues:? No edema, masses, or fluid collections.? No enlarged lymph nodes.? No soft tissue lacerations or debris.? ? Vascular:? Visualized vascular structures appear normal in the absence of contrast.? Bony vascular foramina and canals are intact.? ? IMPRESSION:? ? 1. Suspect nondisplaced nasal bone fracture of indeterminate chronicity.? 2. Left frontal, ethmoidal and maxillary sinus disease. ? ? ? Dictated by: Graciela Sung M.D. on 05/21/2023 at 8:01? [facility] Narrative Medical decision making narrative: Patient is 77-year-old male presents today is a mechanical fall roll out of bed. He is on aspirin or Plavix having superficial facial lacerations including right upper eyelid and right face. Bleeding initially difficult to stop lidocaine with epinephrine helped along with suturing. Surgicel was also used. I was examined no evidence of foreign body or corneal abrasion. Minimal subconjunctival hemorrhage. Eyelid laceration very small superficial but oozing blood so [address] scans have been reviewed and are negative. Discharge Plan Departure Patient Disposition: Home Clinical Impression: Fall, Laceration of face, Traumatic subconjunctival hemorrhage of right eye Instructions: DI for Laceration Repair -- Simple Activity Restrictions/Additional Instructions: *You have been diagnosed with fall, superficial laceration *What to do: In about 5-7 days then you may put some antibiotic ointment on areas with the sutures are. The sutures should dissolve in about 1-2 weeks. Expect significant bruising around your right eye. Expect to be sore over the next couple of days. *Continue to take medications as directed Tylenol 650 mg every 46 hours if needed for pain. *Follow up with your primary care provider in 2-3 days or call [phone] *Return to ER if you should have increased pain, change in vision or any new, worsening or concerning symptoms Prescriptions: No Action amitriptyline 25 mg tablet 25 mg PO BID perphenazine 2 mg tablet 2 mg PO BID metoprolol succinate 25 mg tablet extended release 24 hr 75 mg PO BID ezetimibe [Zetia] 10 MG tablet 10 mg PO QAM losartan 50 mg Tablet 50 mg PO BID aspirin 81 mg Tablet,Delayed Release (Dr/Ec) 81 mg PO QAM pantoprazole [Protonix] 40 mg tablet,delayed release (DR/EC) 40 mg PO QAM sennosides [senna] 8.6 mg Tablet 8.6 mg PO BID spironolactone 25 mg tablet 12.5 mg PO QAM escitalopram oxalate 10 mg tablet 5 mg PO QAM rosuvastatin 5 mg tablet 5 mg PO BEDTIME Referrals: Miscellaneous,Doctor, MD [Non-Staff] - Stand Alone Forms: Patient Portal/API
[2023-05-21] MEDS: PROPARACAINE 0.5% OPHTH SOL 1 DROPS EYE-BOTH (08:11)
[2023-05-21] MEDS: FLUORESCEIN 1 MG STRIP EYE-BOTH (08:11)
[2023-05-21 08:12] VITALS: PULSE 70; O2SAT 95
[2023-05-21 08:30] VITALS: BP 127/61; PULSE 70; O2SAT 94
[2023-05-21 09:00] VITALS: BP 134/66; PULSE 72; O2SAT 93
--- NOTE | 2023-05-21 09:17 | PC.NURSE ---
All facial wounds cleaned and sutures to lac to the R of nare and and eyelid. Bleeding now stopped. Pt dressed and transportation from [facility] here to take pt home. Educated pt on the pattern of bruising that might happen and that his sutures will dissolve in 10-12 days
== END 2023-05-21 09:20 | disposition home or self-care (01) ==
PROVIDERS: Emergency Provider Emergency Medicine; PCP Internal Medicine
DX: S01.81XA Laceration without foreign body of other part of head, initial encounter (principal); H11.31 Conjunctival hemorrhage, right eye; W06.XXXA Fall from bed, initial encounter; Z95.2 Presence of prosthetic heart valve
CPT/HCPCS: 12011; 70450; 70486; 72125; 99282; 99284

== ENCOUNTER 2023-06-24 14:20 | Emergency (ER) | payer MEDICARE, OTHER, SELFPAY ==
[2023-06-24 14:22] VITALS: BP 124/68; PULSE 77; RESP 16; TEMP 36.4; O2SAT 97; BMI 25.8
--- NOTE | 2023-06-24 14:27 | ED.SKABFB ---
HPI - Skin/Abscess/Foreign Bdy <Jose Cloud PA-C - Last Filed: 06/24/23 14:46> General Chief complaint: Skin/Abscess/Foreign Body Stated complaint: L/ are wound infection Time Seen by Provider: 06/24/23 14:23 Source: patient Mode of arrival: Wheelchair History of Present Illness HPI narrative: This is a 78-year-old male presents emergency department due to a skin tear to left forearm but his wound care nurse was concerned was becoming infected. Patient fell a couple weeks ago this stating the left forearm skin tear he has been getting daily wound care but he was sent here that she was concerned that is being infected. Denies any fevers, nausea, vomiting, or any other concerning signs or symptoms. Related Data Home Medications Medication Instructions Recorded Confirmed amitriptyline 25 mg tablet 25 mg PO BID 05/20/19 06/19/23 aspirin 81 mg tablet,delayed 81 mg PO QAM 05/20/19 06/19/23 release ezetimibe 10 mg tablet (Zetia) 10 mg PO QAM 05/20/19 06/19/23 losartan 50 mg tablet 50 mg PO BID 05/20/19 06/19/23 metoprolol succinate 25 mg 75 mg PO BID 05/20/19 06/19/23 tablet,extended release 24 hr pantoprazole 40 mg tablet,delayed 40 mg PO QAM 05/20/19 06/19/23 release (Protonix) perphenazine 2 mg tablet 2 mg PO BID 05/20/19 06/19/23 escitalopram oxalate 10 mg tablet 5 mg PO QAM 08/18/22 06/19/23 rosuvastatin 5 mg tablet 5 mg PO BEDTIME 08/18/22 06/19/23 sennosides 8.6 mg tablet (senna) 8.6 mg PO BID 08/18/22 06/19/23 spironolactone 25 mg tablet 12.5 mg PO QAM 08/18/22 06/19/23 clopidogrel 75 mg tablet 75 mg PO DAILY 06/19/23 06/19/23 metformin 500 mg tablet 500 mg PO DAILY 06/19/23 06/19/23 Previous Rx's Medication Instructions Recorded sulfamethoxazole 800 1 tab PO BID #14 tabs 06/24/23 mg-trimethoprim 160 mg tablet (Bactrim DS) Allergies Allergy/AdvReac Type Severity Reaction Status Date / Time rosuvastatin [ROSUVASTATIN] AdvReac Mild MYALGIAS Verified 06/19/23 12:53 Review of Systems <Jose Cloud PA-C - Last Filed: 06/24/23 14:46> Review of Systems Narrative: GENERAL: Denies chills, fatigue, malaise, fever, sweats. HEENT: Denies sinus pain, ear pain, sore throat, difficulty swallowing, dizziness. RESPIRATORY: Denies dyspnea, cough, wheezing, hemoptysis, sputum. CARDIOVASCULAR: Denies chest pain, palpitations, orthopnea, edema, GASTROINTESTINAL: Denies nausea, vomiting, abdominal pain, diarrhea, constipation, melena. : Denies dysuria, frequency, incontinence, hematuria, urinary retention. MUSCULOSKELETAL: denies weakness, joint pain, or bony pain SKIN: Skin tear to left forearm NEUROLOGIC: Denies weakness, headache, numbness, change in speech, confusion, seizures, incoordination. PSYCHIATRIC: No concerning psychosocial issues. 12 point review of systems is negative except for those stated above Patient History <Jose Cloud PA-C - Last Filed: 06/24/23 14:46> Medical History (Updated 06/24/23 @ 14:43 by Jose Cloud PA-C) High cholesterol Diverticulosis Aortic valve insufficiency Depression Surgical History H/O aortic valve replacement Social History household members: spouse Smoking Status: Never smoker alcohol intake: current substance use type: does not use Smoking Status: Never smoker alcohol intake frequency: 0-2 drinks per day Substance Use Type: does not use Exam <Jose Cloud PA-C - Last Filed: 06/24/23 14:46> Narrative Exam Narrative: GENERAL: Well-developed patient, in mild distress. HEAD: Atraumatic. Normocephalic. EYES: Pupils equal round and reactive. Extraocular motions intact. No scleral icterus. No injection or drainage. ENT: Nose without bleeding, purulent drainage. Throat without erythema, tonsillar hypertrophy or exudate. Airway patent. NECK: Trachea midline. Non tender CARDIOVASCULAR: Regular rate and rhythm without murmurs, gallops, or rubs. RESPIRATORY: Clear to auscultation. Breath sounds equal bilaterally. No wheezes, rales, or rhonchi. GASTROINTESTINAL: Abdomen soft, non-tender, nondistended. EXTREMITIES: No edema or joint tenderness. BACK: Nontender without deformity or crepitance. No flank tenderness. NEURO: AOx3. SKIN: Skin tear left arm forearm approximately 6 cm in diameter. There does appear to be small amount of purulent discharge and drainage coming from the wound. No spreading erythema surrounding the wound. No significant areas of fluctuance. Initial Vital Signs Initial Vital Signs: Vital Signs Temperature 97.6 F 06/24/23 14:22 Pulse Rate 77 06/24/23 14:22 Respiratory Rate 16 06/24/23 14:22 Blood Pressure 124/68 06/24/23 14:22 Pulse Oximetry 97 06/24/23 14:22 Oxygen Delivery Method Room Air 06/24/23 14:22 <DO Cass Pelayo Last Filed: 06/24/23 15:44> Initial Vital Signs Initial Vital Signs: Vital Signs Temperature 97.6 F 06/24/23 14:22 Pulse Rate 77 06/24/23 14:22 Respiratory Rate 16 06/24/23 14:22 Blood Pressure 124/68 06/24/23 14:22 Pulse Oximetry 97 06/24/23 14:22 Oxygen Delivery Method Room Air 06/24/23 14:22 Course <Jose Cloud PA-C - Last Filed: 06/24/23 14:46> Orders Ordered: Discontinued Medications Mupirocin (Mupirocin 22 Gm Oint) 1 applic TOP BID [facility] Last Admin: 06/24/23 14:54 Dose: 1 applictn Documented By: SHANEKA Vital Signs Vital signs: Vital Signs - 8 hr 06/24/23 14:22 Temperature 97.6 F Pulse Rate 77 Respiratory Rate 16 Blood Pressure 124/68 Pulse Oximetry 97 Oxygen Delivery Method Room Air <DO Cass Pelayo Last Filed: 06/24/23 15:44> Orders Ordered: Discontinued Medications Mupirocin (Mupirocin 22 Gm Oint) 1 applic TOP BID [facility] Last Admin: 06/24/23 14:54 Dose: 1 applictn Documented By: SHANEKA Vital Signs Vital signs: Vital Signs - 8 hr 06/24/23 14:22 Temperature 97.6 F Pulse Rate 77 Respiratory Rate 16 Blood Pressure 124/68 Pulse Oximetry 97 Oxygen Delivery Method Room Air MDM - Skin/Abscess/Foreign Bdy <Jose Cloud PA-C - Last Filed: 06/24/23 14:46> MDM Narrative Medical decision making narrative: MDM * differential diagnosis includes but not limited to skin tear, cellulitis, MRSA infection * Prior records reviewed: Patient was seen here a month ago for a fall. Has a history of a ?neurologic disease similar to Parkinson's?, cardiac valve replacement, hypertension, hyperlipidemia. CT head and C-spine and facial bones were unremarkable. Facial lacerations were closed without complications. Eventually discharged. Patient was seen 5 days ago for right leg swelling for the last 6 months at the walk-in clinic. Makes his blood thinner. PCP use Nimo castelan. Swelling was suspected to be a combination of immobility and poor vascular return. Was recommended to elevate and compress. * My lab interpretation: None obtained * My imgaing interpretation: None obtained * Clinical Decision Rules/Scores evaluated: None * Independent discussions with: None ED Course: This is an 78-year-old male presents to the emergency department due to concerns of an infection to a left-sided forearm skin tear. On exam there does appear to be a small amount of purulent drainage but there were no palpable areas of fluctuance that would benefit from incision and drainage. We will treat with oral antibiotics and recommended patient follow up with his wound care nurse for routine wound care. No fevers or other systemic symptoms though benefit from IV antibiotics or admission. Shared Decision Making: Discussed plan with patient who is comfortable with the plan. Social Considerations: None Disposition: Discharged to home Discharge Plan Departure Patient Disposition: Home Clinical Impression: Infected wound Activity Restrictions/Additional Instructions: Thank you for coming to the [facility] Emergency Department today. Please take the oral antibiotics as prescribed. Please follow up with the your nurse for routine wound care. I hope you feel better soon. Please follow up with your primary care provider within a week if your symptoms continue. If you do not have a primary care provider please contact the [facility] Resource line at [phone]. They will ask some questions about your medical history and help you get set up with a provider in the community. Prescriptions: New sulfamethoxazole-trimethoprim [Bactrim DS] 800-160 mg tablet 1 tab PO BID Qty: 14 0RF No Action clopidogrel 75 mg tablet 75 mg PO DAILY metformin 500 mg tablet 500 mg PO DAILY amitriptyline 25 mg tablet 25 mg PO BID perphenazine 2 mg tablet 2 mg PO BID metoprolol succinate 25 mg tablet extended release 24 hr 75 mg PO BID ezetimibe [Zetia] 10 MG tablet 10 mg PO QAM losartan 50 mg Tablet 50 mg PO BID aspirin 81 mg Tablet,Delayed Release (Dr/Ec) 81 mg PO QAM pantoprazole [Protonix] 40 mg tablet,delayed release (DR/EC) 40 mg PO QAM sennosides [senna] 8.6 mg Tablet 8.6 mg PO BID spironolactone 25 mg tablet 12.5 mg PO QAM escitalopram oxalate 10 mg tablet 5 mg PO QAM rosuvastatin 5 mg tablet 5 mg PO BEDTIME Referrals: Nimo Castelan MD [Primary Care Provider] - Stand Alone Forms: Patient Portal/API ED Sign-out <Hanna Ellsworth DO - Last Filed: 06/24/23 15:44> Cosign ED Attending Cosignature Attestation: I was immediately available in the department for consultation. Documentation has been reviewed.
[2023-06-24] MEDS: MUPIROCIN 22 GM OINT 1 APPLIC TOP (14:54)
== END 2023-06-24 15:14 | disposition home or self-care (01) ==
PROVIDERS: Emergency Provider Physician Assistant Medical; PCP Internal Medicine
DX: L08.9 Local infection of the skin and subcutaneous tissue, unspecified (principal)
CPT/HCPCS: 99282

== ENCOUNTER 2023-07-18 23:31 | Emergency (ER) | payer MEDICARE, OTHER, SELFPAY ==
[2023-07-18 23:34] VITALS: BP 143/70; PULSE 70; RESP 18; TEMP 36.8; O2SAT 96; BMI 27.2
[2023-07-18 23:35] VITALS: PULSE 70; O2SAT 96
[2023-07-18 23:36] VITALS: BP 143/70; PULSE 70; O2SAT 96
--- NOTE | 2023-07-18 23:37 | DI.CT.S_ITS ---
PROCEDURE: CT CHEST WO CON INDICATIONS: fall TECHNIQUE: Noncontrast 5 mm thick sections acquired from the pulmonary apices to the posterior costophrenic angles. 1 mm lung window, 5 mm thick coronal and sagittal and 7 mm axial MIP reformats were then acquired. For radiation dose reduction, the following was used: automated exposure control, adjustment of mA and/or kV according to patient size. COMPARISON: None. FINDINGS: Image quality: Excellent. Lungs and pleura: No acute air space opacities. Mild dependent atelectasis in posterior and lateral periphery of bilateral lung mustafa are seen. No pleural effusions or pneumothorax. Central and peripheral airways are patent and normal in caliber. Mediastinum: Heart size is enlarged. No pericardial effusion. Left chest wall pacemaker leads are in the region of right atrium and right ventricle. Prosthetic aortic valve is seen. Moderate atherosclerotic calcifications are noted in coronary vessels and thoracic aorta. No mediastinal adenopathy by size criteria. Thoracic aorta and central pulmonary arteries are normal in size. Esophagus is normal in caliber. No hiatal hernia. Bones and chest wall: Median sternotomy wires are seen. Left chest wall pacemaker is also noted. No suspicious bony lesions. No vertebral body compression fractures. No axillary or supraclavicular adenopathy by size criteria. Thyroid gland is within normal limits.. Abdomen: Visualized upper abdominal solid organs and bowel loops appear normal in the absence of contrast. IMPRESSION: 1. No pulmonary contusion. No pleural effusion or pneumothorax. Mild scattered atelectasis. 2. No mediastinal hematoma. Cardiomegaly, no pericardial effusion. No mediastinal or hilar lymphadenopathy. 3. No gross acute rib fracture. No compression fracture or spondylolisthesis in thoracic spine. Dictated by: Chevy Reynolds M.D. on 07/19/2023 at 0:25 Approved by: Chevy Reynolds M.D. on 07/19/2023 at 0:29
--- NOTE | 2023-07-18 23:37 | DI.CT.S_ITS ---
PROCEDURE: CT HEAD/BRAIN WO CON INDICATIONS: fall TECHNIQUE: Noncontrast 4.5 mm thick angled axial sections acquired from the foramen magnum to the vertex, with coronal and sagittal reformats. For radiation dose reduction, the following was used: automated exposure control, adjustment of mA and/or kV according to patient size. COMPARISON: [facility], CT, CT HEAD/BRAIN WO CON, 05/21/2023, 7:05. FINDINGS: Image quality: Excellent. CSF spaces: Basal cisterns are patent. No extra-axial fluid collections. The ventricles are symmetric in size and shape. Brain: No intracranial bleeds or masses. There is cerebral volume loss for age, with resultant ventricular and sulcal prominence. There are periventricular and deep white matter chronic small vessel ischemic changes. There is intracranial internal carotid artery atherosclerosis. Skull and face: Calvarium and visualized facial bones appear intact, without suspicious lesions. Sinuses: Visualized sinuses and mastoids are clear. IMPRESSION: 1. No acute intracranial abnormalities. No acute skull fracture. 2. Extensive white matter chronic small vessel ischemic changes and age related volume loss not significantly changed from previous study. Dictated by: Chevy Reynolds M.D. on 07/19/2023 at 0:19 Approved by: Chevy Reynolds M.D. on 07/19/2023 at 0:22
--- NOTE | 2023-07-18 23:37 | DI.CT.S_ITS ---
PROCEDURE: CT CERVICAL SPINE WO CON INDICATIONS: fall TECHNIQUE: Noncontrast 3 mm thick sections acquired from the skull base to the T4 level. Sagittal and coronal reformats were then constructed. For radiation dose reduction, the following was used: automated exposure control, adjustment of mA and/or kV according to patient size. COMPARISON: [facility], CT, CT CERVICAL SPINE WO CON, 05/21/2023, 7:05. FINDINGS: Image quality: Excellent. Bones: No fractures or dislocations. Degenerative endplate changes, loss of disc height and bilateral facet hypertrophic changes are noted throughout cervical spine. Mild central canal stenosis and bilateral neural foraminal narrowing is seen throughout cervical spine more notably at C5-6 and C6-7 levels. Visualized superior ribs are intact. Soft tissues: Prevertebral soft tissues are normal in thickness. No paravertebral hematomas. No apical pneumothoraces. IMPRESSION: 1. No acute cervical spine fracture or dislocation. 2. [id number] degenerative disc disease throughout cervical spine as above. Dictated by: Chevy Reynolds M.D. on 07/19/2023 at 0:23 Approved by: Chevy Reynolds M.D. on 07/19/2023 at 0:25
[2023-07-18 23:58] VITALS: BP 149/74; PULSE 69; O2SAT 97
[2023-07-19] VITALS: BP 149/76; PULSE 69; O2SAT 96
--- NOTE | 2023-07-19 00:03 | ED.FALL ---
HPI - Fall General Chief Complaint: Fall Stated Complaint: fall on thinners Time Seen by Provider: 07/18/23 23:37 Source: patient and EMS Mode of arrival: EMS History of Present Illness HPI Narrative: Patient 78-year-old male history of neurologic disease similar to Parkinson's, cardiac valve replacement, hypertension, hyperlipidemia on aspirin or Plavix reports that he was in the kitchen he was stepping backwards when he stumbled and fell. He hit the back or top of his head. There is no obvious bleeding or injury. He does have abrasion on his back on the left side. He denies any chest pain or shortness of breath. No pelvis pain. He was unable to get up on his own. Related Data Home Medications Medication Instructions Recorded Confirmed amitriptyline 25 mg tablet 25 mg PO BID 05/20/19 06/19/23 aspirin 81 mg tablet,delayed 81 mg PO QAM 05/20/19 06/19/23 release ezetimibe 10 mg tablet (Zetia) 10 mg PO QAM 05/20/19 06/19/23 losartan 50 mg tablet 50 mg PO BID 05/20/19 06/19/23 metoprolol succinate 25 mg 75 mg PO BID 05/20/19 06/19/23 tablet,extended release 24 hr pantoprazole 40 mg tablet,delayed 40 mg PO QAM 05/20/19 06/19/23 release (Protonix) perphenazine 2 mg tablet 2 mg PO BID 05/20/19 06/19/23 escitalopram oxalate 10 mg tablet 5 mg PO QAM 08/18/22 06/19/23 rosuvastatin 5 mg tablet 5 mg PO BEDTIME 08/18/22 06/19/23 sennosides 8.6 mg tablet (senna) 8.6 mg PO BID 08/18/22 06/19/23 spironolactone 25 mg tablet 12.5 mg PO QAM 08/18/22 06/19/23 clopidogrel 75 mg tablet 75 mg PO DAILY 06/19/23 06/19/23 metformin 500 mg tablet 500 mg PO DAILY 06/19/23 06/19/23 Previous Rx's Medication Instructions Recorded sulfamethoxazole 800 1 tab PO BID #14 tabs 06/24/23 mg-trimethoprim 160 mg tablet (Bactrim DS) Allergies Allergy/AdvReac Type Severity Reaction Status Date / Time rosuvastatin [ROSUVASTATIN] AdvReac Mild MYALGIAS Verified 06/19/23 12:53 Patient History Medical History (Updated 07/19/23 @ 01:02 by Dawna Gtz DO) High cholesterol Diverticulosis Aortic valve insufficiency Depression Surgical History H/O aortic valve replacement Social History household members: spouse Smoking Status: Never smoker alcohol intake: current substance use type: does not use Smoking Status: Never smoker alcohol intake frequency: 0-2 drinks per day Substance Use Type: does not use Exam Initial Vital Signs Initial Vital Signs: Vital Signs Temperature 98.2 F 07/18/23 23:34 Pulse Rate 70 07/18/23 23:34 Respiratory Rate 18 07/18/23 23:34 Blood Pressure 143/70 H 07/18/23 23:34 Pulse Oximetry 96 07/18/23 23:34 Oxygen Delivery Method Room Air 07/18/23 23:34 GENERAL: Alert pleasant 78-year-old male HEENT: Head atraumatic,EOMI, pupils reactive, face symmetric, [moist] mucous membranes CARDIOVASCULAR: Regular rate and rhythm without murmurs, rubs or gallops. RESPIRATORY: Breath sounds equal bilaterally, no wheezes rales or rhonchi. ABDOMEN: Soft, nontender. Normoactive bowel sounds all 4 quadrants. No guarding or rebound. BACK: No vertebral tenderness left side abrasions noted no paradoxical movement EXTREMITIES: Normal range of motion, no clubbing or edema. Neurovascularly intact NEUROLOGICAL: Alert and oriented x4.Normal gait and speech. SKIN: Warm, dry, no laceration, no petechiae, no rashes or lesions. Course Orders Ordered: ED Orders 07/18/23 23:37 CT cervical spine wo con Stat CT chest wo con Stat CT head/brain wo con Stat Vital Signs Vital signs: Vital Signs - 8 hr 07/18/23 23:34 07/18/23 23:35 07/18/23 23:36 Temperature 98.2 F Pulse Rate 70 70 70 Respiratory Rate 18 Blood Pressure 143/70 H Pulse Oximetry 96 96 96 Oxygen Delivery Method Room Air 07/18/23 23:36 07/18/23 23:58 07/18/23 23:58 Temperature Pulse Rate 69 Respiratory Rate Blood Pressure 143/70 H 149/74 H Pulse Oximetry 97 Oxygen Delivery Method 07/19/23 00:00 07/19/23 00:00 07/19/23 00:30 Temperature Pulse Rate 69 Respiratory Rate Blood Pressure 149/76 H 138/70 Pulse Oximetry 96 Oxygen Delivery Method 07/19/23 00:30 07/19/23 01:00 07/19/23 01:00 Temperature Pulse Rate 69 72 Respiratory Rate Blood Pressure 149/72 H Pulse Oximetry 93 96 Oxygen Delivery Method 07/19/23 01:30 07/19/23 01:30 Temperature Pulse Rate 69 Respiratory Rate Blood Pressure 139/71 Pulse Oximetry 94 Oxygen Delivery Method MDM - Fall Imaging Data CT - cervical spine: Radiologist's Impression: PROCEDURE: CT CERVICAL SPINE WO CON INDICATIONS: fall TECHNIQUE: Noncontrast 3 mm thick sections acquired from the skull base to the T4 level. Sagittal and coronal reformats were then constructed. For radiation dose reduction, the following was used: automated exposure control, adjustment of mA and/or kV according to patient size. COMPARISON: [facility], CT, CT CERVICAL SPINE WO CON, 05/21/2023, 7:05. FINDINGS: Image quality: Excellent. Bones: No fractures or dislocations. Degenerative endplate changes, loss of disc height and bilateral facet hypertrophic changes are noted throughout cervical spine. Mild central canal stenosis and bilateral neural foraminal narrowing is seen throughout cervical spine more notably at C5-6 and C6-7 levels. Visualized superior ribs are intact. Soft tissues: Prevertebral soft tissues are normal in thickness. No paravertebral hematomas. No apical pneumothoraces. IMPRESSION: 1. No acute cervical spine fracture or dislocation. 2. [id number] degenerative disc disease throughout cervical spine as above. Dictated by: Chevy Reynolds M.D. on 07/19/2023 at 0:23 CT scan - chest: Radiologist's Impression: PROCEDURE: CT CHEST WO CON INDICATIONS: fall TECHNIQUE: Noncontrast 5 mm thick sections acquired from the pulmonary apices to the posterior costophrenic angles. 1 mm lung window, 5 mm thick coronal and sagittal and 7 mm axial MIP reformats were then acquired. For radiation dose reduction, the following was used: automated exposure control, adjustment of mA and/or kV according to patient size. COMPARISON: None. FINDINGS: Image quality: Excellent. Lungs and pleura: No acute air space opacities. Mild dependent atelectasis in posterior and lateral periphery of bilateral lung mustafa are seen. No pleural effusions or pneumothorax. Central and peripheral airways are patent and normal in caliber. Mediastinum: Heart size is enlarged. No pericardial effusion. Left chest wall pacemaker leads are in the region of right atrium and right ventricle. Prosthetic aortic valve is seen. Moderate atherosclerotic calcifications are noted in coronary vessels and thoracic aorta. No mediastinal adenopathy by size criteria. Thoracic aorta and central pulmonary arteries are normal in size. Esophagus is normal in caliber. No hiatal hernia. Bones and chest wall: Median sternotomy wires are seen. Left chest wall pacemaker is also noted. No suspicious bony lesions. No vertebral body compression fractures. No axillary or supraclavicular adenopathy by size criteria. Thyroid gland is within normal limits.. Abdomen: Visualized upper abdominal solid organs and bowel loops appear normal in the absence of contrast. IMPRESSION: 1. No pulmonary contusion. No pleural effusion or pneumothorax. Mild scattered atelectasis. 2. No mediastinal hematoma. Cardiomegaly, no pericardial effusion. No mediastinal or hilar lymphadenopathy. 3. No gross acute rib fracture. No compression fracture or spondylolisthesis in thoracic spine. Dictated by: Chevy Reynolds M.D. on 07/19/2023 at 0:25 CT scan - head: Radiologist's Impression: PROCEDURE: CT HEAD/BRAIN WO CON INDICATIONS: fall TECHNIQUE: Noncontrast 4.5 mm thick angled axial sections acquired from the foramen magnum to the vertex, with coronal and sagittal reformats. For radiation dose reduction, the following was used: automated exposure control, adjustment of mA and/or kV according to patient size. COMPARISON: [facility], CT, CT HEAD/BRAIN WO CON, 05/21/2023, 7:05. FINDINGS: Image quality: Excellent. CSF spaces: Basal cisterns are patent. No extra-axial fluid collections. The ventricles are symmetric in size and shape. Brain: No intracranial bleeds or masses. There is cerebral volume loss for age, with resultant ventricular and sulcal prominence. There are periventricular and deep white matter chronic small vessel ischemic changes. There is intracranial internal carotid artery atherosclerosis. Skull and face: Calvarium and visualized facial bones appear intact, without suspicious lesions. Sinuses: Visualized sinuses and mastoids are clear. IMPRESSION: 1. No acute intracranial abnormalities. No acute skull fracture. 2. Extensive white matter chronic small vessel ischemic changes and age related volume loss not significantly changed from previous study. Dictated by: Chevy Reynolds M.D. on 07/19/2023 at 0:19 MDM Narrative Medical decision making narrative: Patient 78-year-old male with neurologic disease presents today with a mechanical fall falling backwards. Sign of injury on left back contusion and abrasion along thoracic and lumbar area. No chest pain no paradoxical movement. Head CT cervical spine CT and just T2 not show any fractures. Patient is not needing anything for pain. s is called for transport Discharge Plan Departure Patient Disposition: Home Clinical Impression: Fall, Contusion Instructions: How to Prevent Falls Activity Restrictions/Additional Instructions: *You have been diagnosed with contusion, fall *What to do: No evidence of broken bones or bleeding in brain *Continue to take medications as directed Tylenol 650 mg every 4-6 hours needed for [id number] pain *Follow up with your primary care provider in 2-3 days or call [phone] *Return to ER if you should have increasing pain numbness tingling weakness or any new, worsening or concerning symptoms Prescriptions: No Action clopidogrel 75 mg tablet 75 mg PO DAILY metformin 500 mg tablet 500 mg PO DAILY amitriptyline 25 mg tablet 25 mg PO BID perphenazine 2 mg tablet 2 mg PO BID metoprolol succinate 25 mg tablet extended release 24 hr 75 mg PO BID ezetimibe [Zetia] 10 MG tablet 10 mg PO QAM losartan 50 mg Tablet 50 mg PO BID aspirin 81 mg Tablet,Delayed Release (Dr/Ec) 81 mg PO QAM pantoprazole [Protonix] 40 mg tablet,delayed release (DR/EC) 40 mg PO QAM sennosides [senna] 8.6 mg Tablet 8.6 mg PO BID spironolactone 25 mg tablet 12.5 mg PO QAM escitalopram oxalate 10 mg tablet 5 mg PO QAM rosuvastatin 5 mg tablet 5 mg PO BEDTIME sulfamethoxazole-trimethoprim [Bactrim DS] 800-160 mg tablet 1 tab PO BID Qty: 14 0RF Referrals: Nimo Castelan MD [Primary Care Provider] - Stand Alone Forms: Patient Portal/API
[2023-07-19 00:30] VITALS: BP 138/70; PULSE 69; O2SAT 93
[2023-07-19 01:00] VITALS: BP 149/72; PULSE 72; O2SAT 96
[2023-07-19 01:30] VITALS: BP 139/71; PULSE 69; O2SAT 94
== END 2023-07-19 01:48 | disposition home or self-care (01) ==
PROVIDERS: Emergency Provider Emergency Medicine; PCP Internal Medicine
DX: S30.0XXA Contusion of lower back and pelvis, initial encounter (principal); S30.810A Abrasion of lower back and pelvis, initial encounter; S20.419A Abrasion of unspecified back wall of thorax, initial encounter; W01.0XXA Fall on same level from slipping, tripping and stumbling without subsequent striking against object, initial encounter; Z79.899 Other long term (current) drug therapy; Z95.2 Presence of prosthetic heart valve; Z79.01 Long term (current) use of anticoagulants
CPT/HCPCS: 70450; 71250; 72125; 99283; 99284

== ENCOUNTER → 2023-07-25 14:38 | Outpatient (CLI) | payer MEDICARE, OTHER, SELFPAY | PROVIDERS: PCP Internal Medicine; Visit Provider Physician Assistant | DX: S51.802A Unspecified open wound of left forearm, initial encounter (principal) | CPT/HCPCS: 87070; 87075; 87205 ==

== ENCOUNTER → 2023-08-06 10:10 | Outpatient (CLI) | payer MEDICARE, OTHER, SELFPAY | PROVIDERS: PCP Internal Medicine; Referring Provider Physician Assistant; Visit Provider Physician Assistant | DX: L25.9 Unspecified contact dermatitis, unspecified cause (principal); B35.4 Tinea corporis; L98.499 Non-pressure chronic ulcer of skin of other sites with unspecified severity | CPT/HCPCS: 99204; 99213 ==

== ENCOUNTER → 2023-08-16 10:16 | Outpatient (CLI) | payer MEDICARE, OTHER, SELFPAY | PROVIDERS: PCP Internal Medicine; Referring Provider Physician Assistant; Visit Provider Surgery | DX: R21 Rash and other nonspecific skin eruption (principal); S51.802A Unspecified open wound of left forearm, initial encounter; G20.C Parkinsonism, unspecified; I10 Essential (primary) hypertension | CPT/HCPCS: 99212; 99213 ==

== ENCOUNTER 2023-09-21 12:25 | Emergency (ER) | payer MEDICARE, OTHER, SELFPAY ==
[2023-09-21 12:31] VITALS: BP 146/82; PULSE 70; RESP 16; TEMP 36.2; O2SAT 96; BMI 27.3
--- NOTE | 2023-09-21 12:31 | DI.RAD.S_ITS ---
PROCEDURE: XR SHOULDER RT MIN 2V INDICATIONS: fall TECHNIQUE: 2 views of the shoulder were acquired. COMPARISON: [facility], CR, XR SHOULDER RT MIN 2V, 04/16/2023, 22:06. FINDINGS: Bones: Distal clavicle fracture. Fracture fragments are cyst Adrianne lead displaced. Soft tissues: No suspicious soft tissue calcifications. IMPRESSION: Distal right clavicle fracture. Dictated by: Felicita Alaniz MD, PhD on 09/21/2023 at 12:56 Approved by: Felicita Alaniz MD, PhD on 09/21/2023 at 12:57
--- NOTE | 2023-09-21 12:38 | ED.FALL ---
HPI - Fall <Jose Cloud PA-C - Last Filed: 09/21/23 13:20> General Chief Complaint: Fall Stated Complaint: GLF Time Seen by Provider: 09/21/23 12:38 Source: patient and EMS Mode of arrival: EMS History of Present Illness HPI Narrative: This is a 78-year-old male presents emergency department due to right shoulder pain. He states that he was backing up to sit in the recliner when he off landing on his right shoulder. He does not report any right elbow pain, back pain, hand pain, or any other pain to any part of his body. He had not hit head or lose conscious. No longer taking clopidogrel or aspirin due to watchman procedure earlier this spring. Related Data Home Medications Medication Instructions Recorded Confirmed amitriptyline 25 mg tablet 25 mg PO BID 05/20/19 07/25/23 aspirin 81 mg tablet,delayed 81 mg PO QAM 05/20/19 07/25/23 release ezetimibe 10 mg tablet (Zetia) 10 mg PO QAM 05/20/19 07/25/23 losartan 50 mg tablet 50 mg PO BID 05/20/19 07/25/23 metoprolol succinate 25 mg 75 mg PO BID 05/20/19 07/25/23 tablet,extended release 24 hr pantoprazole 40 mg tablet,delayed 40 mg PO QAM 05/20/19 07/25/23 release (Protonix) perphenazine 2 mg tablet 2 mg PO BID 05/20/19 07/25/23 escitalopram oxalate 10 mg tablet 5 mg PO QAM 08/18/22 07/25/23 rosuvastatin 5 mg tablet 5 mg PO BEDTIME 08/18/22 07/25/23 sennosides 8.6 mg tablet (senna) 8.6 mg PO BID 08/18/22 07/25/23 spironolactone 25 mg tablet 12.5 mg PO QAM 08/18/22 07/25/23 clopidogrel 75 mg tablet 75 mg PO DAILY 06/19/23 07/25/23 metformin 500 mg tablet 500 mg PO DAILY 06/19/23 07/25/23 Previous Rx's Medication Instructions Recorded sulfamethoxazole 800 1 tab PO BID #14 tabs 06/24/23 mg-trimethoprim 160 mg tablet (Bactrim DS) mupirocin 2 % topical ointment 1 applic topical BID #22 grams 07/25/23 Allergies Allergy/AdvReac Type Severity Reaction Status Date / Time rosuvastatin [ROSUVASTATIN] AdvReac Mild MYALGIAS Verified 07/25/23 14:03 Review of Systems <Jose Cloud PA-C - Last Filed: 09/21/23 13:20> Review of Systems Narrative: GENERAL: Denies chills, fatigue, malaise, fever, sweats. HEENT: Denies sinus pain, ear pain, sore throat, difficulty swallowing, dizziness. RESPIRATORY: Denies dyspnea, cough, wheezing, hemoptysis, sputum. CARDIOVASCULAR: Denies chest pain, palpitations, orthopnea, edema, GASTROINTESTINAL: Denies nausea, vomiting, abdominal pain, diarrhea, constipation, melena. : Denies dysuria, frequency, incontinence, hematuria, urinary retention. MUSCULOSKELETAL: Reports right shoulder pain SKIN: Denies rash, skin lesions, or other NEUROLOGIC: Denies weakness, headache, numbness, change in speech, confusion, seizures, incoordination. PSYCHIATRIC: No concerning psychosocial issues. 12 point review of systems is negative except for those stated above Patient History <Jose Cloud PA-C - Last Filed: 09/21/23 13:20> Medical History (Updated 09/21/23 @ 13:20 by Jose Cloud PA-C) High cholesterol Diverticulosis Aortic valve insufficiency Depression Surgical History H/O aortic valve replacement Social History household members: spouse Smoking Status: Never smoker alcohol intake: current substance use type: does not use Smoking Status: Never smoker alcohol intake frequency: 0-2 drinks per day Substance Use Type: does not use Exam <Jose Cloud PA-C - Last Filed: 09/21/23 13:20> Narrative Exam Narrative: GENERAL: Well-developed patient, in mild distress. HEAD: Atraumatic. Normocephalic. EYES: Pupils equal round and reactive. Extraocular motions intact. No scleral icterus. No injection or drainage. ENT: Nose without bleeding, purulent drainage. Throat without erythema, tonsillar hypertrophy or exudate. Airway patent. NECK: Trachea midline. Non tender EXTREMITIES: Tenderness to palpation to the distal clavicle area of the right shoulder. Neurovascularly intact throughout. No open wounds of the a very superficial abrasion to the right knuckle. No skin tenting of the distal clavicle. NEURO: AOx3. SKIN: No rash or erythema of visible areas Initial Vital Signs Initial Vital Signs: Vital Signs Temperature 97.1 F L 09/21/23 12:31 Pulse Rate 70 09/21/23 12:31 Respiratory Rate 16 09/21/23 12:31 Blood Pressure 146/82 H 09/21/23 12:31 Pulse Oximetry 96 09/21/23 12:31 Oxygen Delivery Method Room Air 09/21/23 12:31 <Hanna Ellsworth DO - Last Filed: 09/21/23 17:23> Initial Vital Signs Initial Vital Signs: Vital Signs Temperature 97.1 F L 09/21/23 12:31 Pulse Rate 70 09/21/23 12:31 Respiratory Rate 16 09/21/23 12:31 Blood Pressure 146/82 H 09/21/23 12:31 Pulse Oximetry 96 09/21/23 12:31 Oxygen Delivery Method Room Air 09/21/23 12:31 Course <Jose Cloud PA-C - Last Filed: 09/21/23 13:20> Orders Ordered: ED Orders 09/21/23 12:31 XR shoulder RT min 2V Stat Consultations Consultation #1: [id number]: Discussed case with on-call orthopedist, Dr. Paris, who recommended discharge in his sling, 2 lb weight-bearing restriction, to follow up in her office in 2 weeks. Vital Signs Vital signs: Vital Signs - 8 hr 09/21/23 12:31 Temperature 97.1 F L Pulse Rate 70 Respiratory Rate 16 Blood Pressure 146/82 H Pulse Oximetry 96 Oxygen Delivery Method Room Air <Hanna Ellsworth DO - Last Filed: 09/21/23 17:23> Orders Ordered: ED Orders 09/21/23 12:31 XR shoulder RT min 2V Stat Vital Signs Vital signs: Vital Signs - 8 hr 09/21/23 12:31 Temperature 97.1 F L Pulse Rate 70 Respiratory Rate 16 Blood Pressure 146/82 H Pulse Oximetry 96 Oxygen Delivery Method Room Air MDM - Fall <JOHANNA Stout Last Filed: 09/21/23 13:20> Imaging Data Extremity x-ray #1: Radiologist's Impression: [facility] [address] [place] [address] XRay Report Signed Patient: Darin Clark MR#: [id number] : 1945 Acct:[id number] Age/Sex: 78 / M Date of Service: 09/21/23 Loc: ED Accession Number: [id number] Procedure: XR shoulder RT min 2V Ordering Provider: Hanna Ellsworth D.O. PROCEDURE: XR SHOULDER RT MIN 2V INDICATIONS: fall TECHNIQUE: 2 views of the shoulder were acquired. COMPARISON: [facility], CR, XR SHOULDER RT MIN 2V, 04/16/2023, 22:06. FINDINGS: Bones: Distal clavicle fracture. Fracture fragments are cyst Adrianne lead displaced. Soft tissues: No suspicious soft tissue calcifications. IMPRESSION: Distal right clavicle fracture. Dictated by: Felicita Alaniz MD, PhD on 09/21/2023 at 12:56 Approved by: Felicita Alaniz MD, PhD on 09/21/2023 at 12:57 MDM Narrative Medical decision making narrative: ED course: This is an 78-year-old male presents emergency department due to a mechanical ground level fall landing on his right shoulder. Right shoulder x-ray showed a distal right clavicle fracture. He was neurovascularly intact throughout. The case was discussed with on-call orthopedist, Dr. Paris, who recommended a sling, 2 lb weight bearing restriction, and to follow up in her office in a couple of weeks. Recommended ibuprofen and Tylenol as needed for the pain. CC: Right shoulder pain Complicating co-morbidities: History of neurologic disease similar to Parkinson's, cardiac valve replacement, on clopidogrel and aspirin daily. 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 Data collected from: Previous notes Medical records reviewed: Patient was last seen here 2 months ago due to a fall. History of neurologic disease similar to Parkinson's, cardiac valve replacement. Hit the back of his head. Workup unremarkable. Takes clopidogrel daily as well as aspirin daily. Differential considered, but not limited to: Right shoulder sprain, fracture, neurovascular injury Exam documented above, pertinent findings include: No skin tenting of the distal clavicle, intact radial, median, ulnar nerve. 2+ distal radial pulses. Lab Test results independently reviewed as above. Pertinent findings: None Imaging studies independently reviewed: Right shoulder x-ray showed distal right clavicle fracture. Scores Used: None MIPS Elements: None Consultations: None Treatments: Placed in sling Re-evaluations: None Discussion: Discussed plan with the patient was comfortable with the plan Diagnosis: Right distal clavicle fracture. Disposition: see below, along with detailed discharge instructions that have been reviewed with patient as well as indications for ED re-evaluation and additional outpatient follow up Discharge Plan Departure Patient Disposition: Home Clinical Impression: Closed fracture of distal clavicle Activity Restrictions/Additional Instructions: Thank you for coming to the [facility] Emergency Department today. As we discussed you have a distal clavicle fracture of the right side. This was discussed with the orthopedist, Dr. Paris, who recommended maintaining your arm in the sling, to lb maximum of the weight you place in your right hand, and to follow up in her clinic in a couple of weeks. Please call her clinic to arrange for an appointment. I recommend ibuprofen and Tylenol as needed for the pain. Please return to the emergency department if you develop any significantly worsening pain, numbness, inability to move your right upper extremity or any other concerning signs or symptoms. I hope you feel better soon. Please follow up with your primary care provider within a week if your symptoms continue. If you do not have a primary care provider please contact the [facility] Resource line at [phone]. They will ask some questions about your medical history and help you get set up with a provider in the community. Prescriptions: No Action mupirocin 2 % ointment 1 applic topical BID Qty: 22 0RF Rx Instructions: apply thin layer twice daily to left arm wound. clopidogrel 75 mg tablet 75 mg PO DAILY metformin 500 mg tablet 500 mg PO DAILY amitriptyline 25 mg tablet 25 mg PO BID perphenazine 2 mg tablet 2 mg PO BID metoprolol succinate 25 mg tablet extended release 24 hr 75 mg PO BID ezetimibe [Zetia] 10 MG tablet 10 mg PO QAM losartan 50 mg Tablet 50 mg PO BID aspirin 81 mg Tablet,Delayed Release (/Ec) 81 mg PO QAM pantoprazole [Protonix] 40 mg tablet,delayed release (DR/EC) 40 mg PO QAM sennosides [senna] 8.6 mg Tablet 8.6 mg PO BID spironolactone 25 mg tablet 12.5 mg PO QAM escitalopram oxalate 10 mg tablet 5 mg PO QAM rosuvastatin 5 mg tablet 5 mg PO BEDTIME sulfamethoxazole-trimethoprim [Bactrim DS] 800-160 mg tablet 1 tab PO BID Qty: 14 0RF Referrals: Meliza Paris MD [Physician] - (f/u R distal clavicle fx, thank you! ) Nimo Castelan MD [Primary Care Provider] - Stand Alone Forms: Patient Portal/API ED Sign-out <Hanna Ellsworth DO - Last Filed: 09/21/23 17:23> Cosign ED Attending Kristineature Attestation: I was immediately available in the department for consultation.
--- NOTE | 2023-09-21 13:19 | PC.NURSE ---
Sling applied to R arm. Pt has been in a sling before and understands how to use and care for an extremity in a sling
== END 2023-09-21 13:25 | disposition home or self-care (01) ==
PROVIDERS: Emergency Provider Physician Assistant Medical; PCP Internal Medicine
DX: S42.031A Displaced fracture of lateral end of right clavicle, initial encounter for closed fracture (principal); W07.XXXA Fall from chair, initial encounter
CPT/HCPCS: 73030; 99281; 99283

== ENCOUNTER → 2023-11-14 09:39 | Outpatient (CLI) | payer MEDICARE, OTHER, SELFPAY ==
--- NOTE | 2023-11-14 09:40 | DI.RAD.S_ITS ---
PROCEDURE: FL BARIUM SWALLOW W SPEECH INDICATIONS: Dysphagia, unspecified COMPARISON: None. TECHNIQUE: Examination was conducted in conjunction with speech pathology per standard protocol. In the lateral projection, filming was performed of the patient swallowing. AP projection filming may also be performed with patient swallowing. COMPARISON: FINDINGS: Function: The oral preparatory phase appears normal, with proper containment. The subsequent oral propulsive phase, pharyngeal phase, and esophageal phase of swallowing also appear normal with all proffered substances. No laryngotracheal aspiration. No pathologic vallecular pooling. Morphology: No cricopharyngeal bar is identified. No cervical esophageal webs. No Zenker's diverticulum. No strictures. IMPRESSION: No aspiration. Dictated by: Juana Cifuentes M.D. on 11/14/2023 at 15:11 Approved by: Juana Cifuentes M.D. on 11/14/2023 at 15:11
--- NOTE | 2023-11-14 14:31 | ST.SWALLOW ---
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 Baker, ENT. Dr Baker reported that the pt's presented with structures and function WNL. Pt was referred for MBSS secondary to episodes of choking and coughing alot when eating/drinking. Recently, the pt reported that he choked on a piece of clam in clam chowder that resulted in him nearly passing out. He was able to eventuially expel the piece of clam. Pt stated that this type of choking has occurred a few times , but not as intensely as with the clam chowder. He remarked that he may have been talking at the time. Pt's medical history included diagnoses of Parkinson's Disease, Supranuclear Palsy and GERD, among others. Pt does take Pantoprozole daily for GERD management. Pt is currently receiving speech and swalloe theray through [facility] with Elly Corona, [facility]. Subjective Observations Pt entered the fluoro room in a wheel chair. He was assisted to the4 fluoroscopy chair with 1:1 assistance. Pt reported he was unable to stand. Pt was seated in the fluoroscopy chair with directions and procedures described for him. He indicated he understood and agreed to proceed. Patient Positioning Position View Lateral Imaging Lateral View Textures Administered Trials Presented Thin Liquid via Spoon (IDDSI 0 ),Thin Liquid via Cup (IDDSI 0 ),Extremely Thick Liquid via Spoon (IDDSI 4),Regular (IDDSI 7) Barium Tablet No The IDDSI Framework Protocol: IDDSI.1 Oral Impairment Source: The Modified Barium Swallow Impairment Profile (MBSImP??) Lip Closure Interlabial escape; no progression to anterior lip Tongue Control During Bolus Hold Posterior escape of less than half of bolus Bolus Preparation/Mastication Disorganized chewing/mashing with solid pieces of bolus unchewed Bolus Transport/Lingual Motion Delayed initiation of tongue motion Oral Residue Residue collection on oral structures Location Palate,Tongue Initiation of Pharyngeal Swallow Bolus head in valleculae Additional Oral Impairment Observations OME indicated right side lingual weakness with reduced ROM and strength. Velum, lips and face were noted to be WFL for all tasks. DKS was slow with mild dysarthria observed for 3-4 syllable words. Dentition was noted as natural and in good hygiene. Speech clarity was WFL at 100% intelligible. Mastication was slow with discoordination observed in the chew pattern. Pharyngeal Impairment Source: The Modified Barium Swallow Impairment Profile (MBSImP??) Soft Palate Elevation No bolus between soft palate & pharyngeal wall Laryngeal Elevation Part.sup.move.thyroid cart/ part.approx.arytenoids to epiglot.petiole Anterior Hyoid Excursion Partial anterior movement Epiglottic Movement Partial inversion Laryngeal Vestibular Closure Complete; no air/contrast in laryngeal vestibule Pharyngeal Stripping Wave Present - diminished Pharyngoesophageal Segment Opening Complete distention & complete duration; no obstruction of flow Tongue Base Retraction Narrow column of contrast/air betwn tongue base & post. pharyngeal wall Pharyngeal Residue Collection of residue within/ on pharyngeal structures Location Valleculae Additional Pharyngeal Impairment Overall, pt's pharyngeal Observations swallow phase appears to be WFL Mild overall weakness noted in hyolaryngeal elevation and movement and tongue base retraction,. Epiglottic inversion was inconsistent. With most trials the epiglottis was observed to fulluy invert; however, with sequential swallows of thin liquids, the epiglottis did not invert. The seal of the laryngeal vestibule was complete across all trials with no penetration or aspiration observed. With semi solid and solid trials, there was noted residual within the valeculla following the initial swallow. With subsequent swallows, this residue was cleared successfully. A/P View The IDDSI Framework Protocol: IDDSI.1 A/P View Observations Additional A-P Observations No AP assessment due to pt unable to stand Clinical Impressions Dysphagia Type Oral,Pharyngeal Findings Mild oropharyngeal dysphagia observed secondary to pt's age as well as diagnoses of Parkinson's and Supranuclear palsy. Overall weakness and discoordination of the oropharyngeal structures were noted. Pt safely tolerated all trials WFL (see above descriptions of oral/ pharyngeal phases for details) . Rehabilitation Potential Excellent Patient Appropriate for Therapy Yes: Continue outpt speech/ swallow therapies Recommendations Diet Liquids Order Thin (IDDSI 0) Diet Order Regular (IDDSI 7) Medication Recommendation As Tolerated Comments No diet changes recommended Additional Dietary Needs Reminders to Use Strategies Aspiration Precautions Additional Precautions Eliminate talking during meals until foods/liquids are swallowed; Treatment Plan Therapy Recommendations Outpatient Speech Therapy Recommended Referrals GI Consult Therapy Strategy Recommendations Sitting Upright (90 deg Additional Strategies Recommended mindful swallows; Eliminate/ reduce talking during meals Additional Recommendations/Comments The above results and recommendations were discussed with the pt following MBSS
== END ==
LOC: RAD 09:39
PROVIDERS: PCP Internal Medicine; Referring Provider Otolaryngology; Visit Provider Otolaryngology
DX: R13.10 Dysphagia, unspecified (principal); R49.0 Dysphonia; J39.2 Other diseases of pharynx; R09.A2 Foreign body sensation, throat; G23.1 Progressive supranuclear ophthalmoplegia [Steele-Richardson-Olszewski]
CPT/HCPCS: 74230; 92611

== ENCOUNTER → 2023-12-28 09:00 | Outpatient (CLI) | payer MEDICARE, OTHER, SELFPAY ==
[2023-12-28 10:50] LABS: Add Manual Diff / Slide Review NO; Basophils Absolute Auto 0 /uL (0-100); Basophils Percent Auto 0.5 % (0-2); Eosinophils Absolute Auto 400 /uL (0-450); Eosinophils Percent Auto 4.9 % (2-4); Hematocrit 45.4 % (41-53); Hemoglobin 15.5 g/dL (13.5-17.5); Lymphocytes Absolute Auto 1200 /uL (1100-4500); Lymphocytes Percent Auto 15.2 % (25-40); Mean Corpuscular HGB Conc 34.3 % (30-36); Mean Corpuscular Hemoglobin 30.5 PG (26-34); Mean Corpuscular Volume 88.9 fL (80-100); Monocytes Absolute Auto 800 /uL (0-900); Neutrophils Absolute Auto 5500 /uL (1500-7000); Neutrophils Percent Auto 69.4 % (50-75); Platelet Count 244 X10^3/uL (150-400); Red Cell Distribution Width 13.7 % (11.6-14.8); White Blood Cell Count 7.9 X10^3/uL (4.5-11.0)
[2023-12-28 11:01] LABS: Alanine Aminotransferase 33 IU/L (<50); Albumin 4.5 g/dL (3.5-5.0); Albumin Globulin Ratio 1.5 (1.0-2.8); Alkaline Phosphatase 72 U/L (38-126); Aspartate Aminotransferase 30 IU/L (17-59); BUN Creatinine Ratio 19.6 (6-22); Bilirubin Total 0.8 mg/dL (0.2-1.3); Blood Urea Nitrogen 19 mg/dL (9-20); Calcium 9.8 mg/dL (8.4-10.2); Carbon Dioxide 32 mmol/L (22-32); Chloride 103 mmol/L (98-107); Estimated Glomerular Filt Rate > 60 mL/min (>60); Glucose 124 mg/dL (80-110); HEMOLYSIS < 15 (0-50); Potassium 3.7 mmol/L (3.4-5.1); Sodium 141 mmol/L (137-145); Total Protein 7.5 g/dL (6.3-8.2)
== END ==
PROVIDERS: PCP Internal Medicine; Referring Provider Internal Medicine Cardiovascular Disease; Visit Provider Internal Medicine Cardiovascular Disease
DX: R06.02 Shortness of breath (principal); I48.0 Paroxysmal atrial fibrillation; I35.9 Nonrheumatic aortic valve disorder, unspecified
CPT/HCPCS: 36415; 80053; 84443; 85025

== ENCOUNTER 2024-04-07 13:07 | Inpatient (IN) | payer MEDICARE, OTHER, SELFPAY ==
[2024-04-07] VITALS (84 sets, daily range): BP systolic 84–133; BP diastolic 51–92; PULSE 74–133; RESP 14–45; TEMP 36.2; O2SAT 85–100; BMI 25.8; BMI 27.1
--- NOTE | 2024-04-07 13:24 | DI.RAD.S_ITS ---
PROCEDURE: XR CHEST 1V INDICATIONS: chest pain TECHNIQUE: One view of the chest was acquired. COMPARISON: [facility], CR, XR CHEST 1V, 08/17/2022, 15:04. FINDINGS: Surgical changes and devices: Pacemaker and sternal wires and valve replacement. Lungs and pleura: Lungs are clear. No pleural effusions or pneumothorax. Mediastinum: Mediastinal contours appear normal. Heart size is enlarged. Bones and chest wall: No suspicious bony lesions. Overlying soft tissues appear unremarkable. IMPRESSION: No acute pulmonary process. Dictated by: Juana Cifuentes M.D. on 04/07/2024 at 14:17 Approved by: Juana Cifuentes M.D. on 04/07/2024 at 14:17
--- NOTE | 2024-04-07 13:25 | ED.CHESTPAIN ---
HPI - Chest Pain General Chief Complaint: Chest Pain Stated Complaint: chest px, sob sent by pcp Time Seen by Provider: 04/07/24 13:23 Source: patient Mode of arrival: Wheelchair Limitations: no limitations History of Present Illness HPI narrative: 78-year-old gentleman with a history of atrial fibrillation on baby aspirin only after Watchman procedure in the spring, supranuclear palsy, history of a TAVR at the [facility], diabetes, hypertension, coronary artery disease post bypass complaining of 3 weeks of chest pain when he goes to lay down at night. He has not complaining of chest pain during the day or with exertion. He notes that he has not had any change to his chronic edema, minimal on the left a bit more on the right. He does not describe exertional dyspnea, headaches no sensation of palpitations or his heart beating too fast. No recent fever cough or chills. Related Data Home Medications Medication Instructions Recorded Confirmed amitriptyline 25 mg tablet 25 mg PO BID 05/20/19 04/07/24 losartan 50 mg tablet 50 mg PO BID 05/20/19 04/07/24 metoprolol succinate 25 mg 75 mg PO BID 05/20/19 04/07/24 tablet,extended release 24 hr pantoprazole 40 mg tablet,delayed 40 mg PO QAM 05/20/19 04/07/24 release (Protonix) perphenazine 2 mg tablet 2 mg PO BID 05/20/19 04/07/24 rosuvastatin 5 mg tablet 5 mg PO BEDTIME 08/18/22 04/07/24 sennosides 8.6 mg tablet (senna) 8.6 mg PO BID 08/18/22 04/07/24 spironolactone 25 mg tablet 12.5 mg PO QAM 08/18/22 04/07/24 metformin 500 mg tablet 500 mg PO DAILY 06/19/23 04/07/24 aspirin 81 mg tablet,delayed 81 mg PO DAILY 04/07/24 04/07/24 release ezetimibe 10 mg tablet 10 mg PO DAILY 04/07/24 04/07/24 furosemide 20 mg tablet 20 mg PO DAILY 04/07/24 04/07/24 Allergies Allergy/AdvReac Type Severity Reaction Status Date / Time rosuvastatin [ROSUVASTATIN] AdvReac Mild MYALGIAS Verified 07/25/23 14:03 Review of Systems Review of Systems Narrative: Pertinent positive and negative findings as per HPI Patient History Medical History (Updated 04/07/24 @ 14:47 by Alicia Ibarra MD) Coronary artery disease Hypertension Presence of Watchman left atrial appendage closure device Chronic atrial fibrillation High cholesterol Diverticulosis Aortic valve insufficiency Depression Surgical History H/O aortic valve replacement Social History household members: spouse Smoking Status: Never smoker alcohol intake: current substance use type: does not use Smoking Status: Never smoker alcohol intake frequency: 0-2 drinks per day Substance Use Type: does not use Exam Initial Vital Signs Initial Vital Signs: Vital Signs Pulse Rate 129 H 04/07/24 13:19 Respiratory Rate 30 H 04/07/24 13:19 Pulse Oximetry 99 04/07/24 13:19 General: Chronically ill-appearing, in no acute distress. HEENT: Moist mucous membranes, normal sclera with reactive pupils, Neck: No JVD, supple Respiratory: Lungs with minor scattered crackles in the bases Full and symmetrical air movement Cardiac: Rapid and irregular, I do not appreciate murmurs Abdomen: Soft, nontender, good bowel tones, no flank pain Skin: Warm and dry, no rashes Neurologic: Grossly neurologically intact with no obvious asymmetries or abnormalities with baseline supranuclear palsy findings Extremities: No trauma, well perfused, right leg is slightly more swollen than the left which he states is his baseline. Neither have pitting edema Psych: Cooperative, appropriate insight and affect Course Orders Ordered: ED Orders 04/07/24 13:24 XR chest 1V Stat EKG-12 Lead Stat 04/07/24 13:45 Complete Blood Count AUTO DIFF Stat Comprehensive Metabolic Panel Stat Lipase Stat Magnesium Stat NT-proBNP (BNP-Adult 18+) Stat PTT Partial Thromboplastin Bubba Stat Prothrombin Time INR Stat Troponin & CK Cardiac Panel Stat 04/07/24 14:45 PTT Partial Thromboplastin Bubba Q6H 04/07/24 15:45 Trop I [Troponin I] Stat 04/07/24 20:45 PTT Partial Thromboplastin Bubba Q6H 04/08/24 02:45 PTT Partial Thromboplastin Bubba Q6H 04/08/24 05:00 Hemoglobin and Hematocrit DAILY Platelet Count DAILY 04/08/24 08:45 PTT Partial Thromboplastin Bubba Q6H 04/09/24 05:00 Hemoglobin and Hematocrit DAILY Platelet Count DAILY DILTIAZEM (Diltiazem 125 Mg/125 Ml-D5w) 125 mg in 125 mls @ 5 mls/hr IV TITRATE FAIZA; Protocol Last Titration: 04/07/24 14:42 Dose: 5 mg/hr, 5 mls/hr Documented By: Titration: 04/07/24 14:20 Dose: 0 mg/hr, 0 mls/hr Documented By: Admin: 04/07/24 14:08 Dose: 5 mg/hr, 5 mls/hr Documented By: MPO Heparin Sodium/Dextrose (Heparin Drip) 25,000 unit in 500 mls @ 19.595 mls/hr IV CONT FAIZA; Protocol Last Admin: 04/07/24 14:52 Dose: 12 units/kg/hr, 19.595 mls/hr Documented By: QUINTIN Co-signed By: SITA Discontinued Medications Diltiazem HCl (Diltiazem 25 Mg/5 Ml Sdv) 10 mg IV NOW ONE Stop: 04/07/24 14:00 Last Admin: 04/07/24 14:07 Dose: 10 mg Documented By: QUINTIN Furosemide (Furosemide 40 Mg/4 Ml Vial) 40 mg IV NOW ONE Stop: 04/07/24 13:59 Last Admin: 04/07/24 14:08 Dose: 40 mg Documented By: QUINTIN Heparin Sodium (Porcine) (Heparin 5,000 Unit/Ml Vial) 5,000 unit 60 unit/kg (5000 unit) IV NOW ONE Stop: 04/07/24 14:38 Last Admin: 04/07/24 14:52 Dose: 5,000 unit Documented By: MPO Vital Signs Vital signs: Vital Signs - 8 hr 04/07/24 13:19 04/07/24 13:20 04/07/24 13:20 Pulse Rate 129 H 133 H 132 H Respiratory Rate 30 H 20 21 Blood Pressure 116/80 Pulse Oximetry 99 98 99 Oxygen Delivery Method Room Air Oxygen Flow Rate 04/07/24 13:25 04/07/24 13:30 04/07/24 13:35 Pulse Rate 129 H 127 H 127 H Respiratory Rate 29 H 24 24 Blood Pressure Pulse Oximetry 98 98 97 Oxygen Delivery Method Room Air Oxygen Flow Rate 4 04/07/24 13:37 04/07/24 13:37 04/07/24 13:40 Pulse Rate 130 H 129 H Respiratory Rate 24 24 Blood Pressure 128/92 H Pulse Oximetry 97 98 Oxygen Delivery Method Oxygen Flow Rate 04/07/24 13:45 04/07/24 13:50 04/07/24 13:55 Pulse Rate 127 H 127 H 129 H Respiratory Rate 21 23 20 Blood Pressure Pulse Oximetry 98 97 98 Oxygen Delivery Method Oxygen Flow Rate 04/07/24 14:00 04/07/24 14:05 04/07/24 14:07 Pulse Rate 128 H 128 H 123 H Respiratory Rate 23 23 Blood Pressure 128/92 H Pulse Oximetry 97 97 Oxygen Delivery Method Oxygen Flow Rate 04/07/24 14:10 04/07/24 14:15 04/07/24 14:19 Pulse Rate 124 H 125 H 78 Respiratory Rate 25 H 23 22 Blood Pressure Pulse Oximetry 96 98 97 Oxygen Delivery Method Room Air Oxygen Flow Rate 04/07/24 14:19 04/07/24 14:20 Pulse Rate 79 Respiratory Rate 21 Blood Pressure 100/58 L Pulse Oximetry 96 Oxygen Delivery Method Oxygen Flow Rate MDM - Chest Pain Lab Data 04/07/24 13:45 04/07/24 13:45 Labs: Lab Results 04/07/24 Range/Units 13:45 WBC 8.4 (4.5-11.0) X10^3/uL RBC 4.75 (4.5-5.9) X10^6/uL Hgb 14.4 (13.5-17.5) g/dL Hct 42.6 (41-53) % MCV 89.9 (80-100) fL MCH 30.3 (26-34) PG MCHC 33.7 (30-36) % RDW 13.9 (11.6-14.8) % Plt Count 235 (150-400) X10^3/uL Neut % (Auto) 58.9 (50-75) % Lymph % (Auto) 22.4 L (25-40) % [place] % (Auto) 12.8 (3-14) % Eos % (Auto) 4.9 H (2-4) % Baso % (Auto) 1.0 (0-2) % Neut # (Auto) 4900 (0493-4559) /uL Lymph # (Auto) 1900 (0067-6060) /uL [place] # (Auto) 1100 H (0-900) /uL Eos # (Auto) 400 (0-450) /uL Baso # (Auto) 100 (0-100) /uL PT 12.0 (9.4-12.5) SECONDS INR 1.0 (0.9-1.3) APTT 32 (25.1-36.5) SECONDS Sodium 141 (137-145) mmol/L Potassium 4.2 (3.4-5.1) mmol/L Chloride 105 (98-107) mmol/L Carbon Dioxide 29 (22-32) mmol/L BUN 28 H (9-20) mg/dL Creatinine 1.37 H (0.66-1.25) mg/dL Estimated GFR 52 L (>60) mL/min BUN/Creatinine Ratio 20.4 (6-22) Glucose 100 (80-110) mg/dL Calcium 9.5 (8.4-10.2) mg/dL Magnesium 1.8 (1.6-2.3) mg/dL Total Bilirubin 0.5 (0.2-1.3) mg/dL AST 30 (17-59) IU/L ALT 30 (<50) IU/L Alkaline Phosphatase 70 (38-126) U/L Total Creatine Kinase 71 (55-170) U/L Troponin I 0.478 H* (0.01-0.034) ng/mL NT-Pro-B Natriuret Pep 2170 H (<450) pg/mL Total Protein 7.1 (6.3-8.2) g/dL Albumin 4.2 (3.5-5.0) g/dL Globulin 2.9 (1.7-4.1) g/dL Albumin/Globulin Ratio 1.4 (1.0-2.8) Lipase 104 (23-300) U/L MDM Narrative Medical decision making narrative: CC: Chest tightness/orthopnea for the last 3 weeks with no daily chest pain or exertional dyspnea Complicating co-morbidities: Chronic AFib post Watchman procedure earlier this year, he has had a valve replacement, parkinsonian type syndrome, hypertension, diabetes Data collected from: patient Social determinants of health that may influence the patients condition: Patient lying currently lives at [facility] Medical records reviewed: ER notes from [facility] are reviewed. Limited other notes particularly cardiology notes are available Differential considered: AFib with RVR with exacerbation of congestive heart failure, acute coronary syndrome, AFib causing NSTEMI, Exam documented above, pertinent findings include: Patient has somewhat slowed speech, heart rate is rapid and irregular, I am not appreciating a murmur today, he is his baseline lower extremity edema that does not appear to be worse, there was no jugular venous distention, mild bibasilar crackles only Lab Test results independently reviewed as above. Pertinent findings: CBC is unremarkable Chemistries show a slight bump in creatinine from 0.97-1.3 Initial troponin is elevated at 0.478 in the past has been completely undetectable BNP is elevated at 2000 TSH done in December of 2023 was appropriate Independently reviewed EKG: Atrial flutter rapid ventricular response at a rate of 120 Imaging studies independently reviewed: Chest x-ray shows no acute abnormalities Consultations: In discussion with Dr. Burris, cardiology at [facility] much more detail is now available. Apparently Darin has declined multiple recommendations for additional interventions including heart catheterization, sleep studies, additional medications and prefers medical management of his issues. His recommendation was to keep him at [facility] for acute medical management of his rate related NSTEMI and congestive heart failure. Treatments: Given a bolus of diltiazem at 10 mg, nice response with heart rate dropping to the mid 70s. Heart rate is now increasing diltiazem drip we will be added Troponin returns markedly positive we will add heparin drip IV Lasix 40 mg Discussion: 78-year-old gentleman with a history of valve repair, chronic AFib post Watchman procedure, chronic atrial fibrillation who presents with orthopnea increasing over the last 3 weeks. He has not having chest pain, exertional dyspnea or any symptoms while he is awake during the day seems to notice it only at night as he is falling asleep. No fevers or chills. No cough. Has no sensation that his heart is beating rapidly when currently at a rate of 120. Records are through his instructional coordinator at [facility] and I do not have access to those currently. With his troponin elevated heparin is started. Diltiazem drip we will continue as his heart rate continues to increase. Initial impression is that he has been having uncontrolled atrial fibrillation with rapid ventricular response exacerbated his congestive heart failure and now is causing an NSTEMI. The versus also possible, he has had an NSTEMI that is causing his atrial fibrillation/flutter to have a rapid ventricular response. He also has mild acute kidney injury. I have given him a dose of Lasix in the emergency department At this time he is hemodynamically stable he is comfortable. We will talk to Cardiology at [facility] for recommendations and see if they can clarify any of the rest of his cardiac history. After discussion with him, becomes clear that Darin would prefer a more conservative management based on previous decisions. Cardiology did not feel like heart catheterization would be an appropriate procedure to offer at this time. Care is reviewed with Dr. Multani, hospitalist at [facility]. We will plan to admit to [facility] ICU for NSTEMI with atrial flutter with rapid ventricular response and acute kidney injury Critical Care Time Critical Care Time Total Critical Care Time: 37 Attestation: Critical care time is separate from other billable procedures. There is a high probability of a significant, sudden or life-threatening deterioration that requires my full and direct attention, intervention and personal management. This critical care time includes consultation with family and other consulting doctors, review of records, and interpretation of data from labs, EKGs and imaging as well as managements of atrial fibrillation with rapid ventricular response with IV diltiazem, acute congestive heart failure with IV Lasix, NSTEMI with heparin drip Discharge Plan Departure Patient Disposition: Admitted As Inpatient Clinical Impression: Acute non-ST elevation myocardial infarction (NSTEMI), Atrial flutter with rapid ventricular response, Acute kidney injury
--- NOTE | 2024-04-07 13:28 | EKG_ITS ---
[facility] [address] [place] [address] Test Date: 2024-04-07 Pat Name: Darin Clark Department: [facility] Room: Gender: Male Chief Port Director: MARY : 1945 Requested By: Order Number: [id number] Reading MD: Luis Multani Measurements Intervals [place] Rate: 120 P: 89 MS: QRS: 72 QRSD: 114 T: 21 QT: 338 QTc: 477 Interpretive Statements Critical Test Result: STEMI Atrial flutter with variable AV block with premature ventricular or aberrantly conducted complexes Low voltage QRS RSR' or QR pattern in V1 suggests right ventricular conduction delay Septal infarct , age undetermined Lateral injury pattern Electronically Signed On 04-08-2024 12:20:37 PDT by Luis Multani
--- NOTE | 2024-04-07 13:42 | PC.NURSE ---
Pt came to ED today because he has been feeling cp at night before he goes to bed. Pt takes nitro at night with relief. Took 2 doses last night. Denies cp at this time, but spoke to his pcp and was advised to come in for further evaluation due to cardiac hx of aortic valve replacement and afib. 3+ bilateral LE pitting edema noted, which pt states is normal for him. Pt also has hx of parkinsons. pt very unsteady on feet and requires 2 person assist from wheelchair to stretcher. Pt HR [address] Ibarra at bedside. A&Ox4.
[2024-04-07 13:55] LABS: Add Manual Diff / Slide Review NO; Basophils Absolute Auto 100 /uL (0-100); Eosinophils Absolute Auto 400 /uL (0-450); Eosinophils Percent Auto 4.9 % (2-4); Hematocrit 42.6 % (41-53); Hemoglobin 14.4 g/dL (13.5-17.5); Lymphocytes Absolute Auto 1900 /uL (1100-4500); Lymphocytes Percent Auto 22.4 % (25-40); Mean Corpuscular HGB Conc 33.7 % (30-36); Mean Corpuscular Hemoglobin 30.3 PG (26-34); Mean Corpuscular Volume 89.9 fL (80-100); Monocytes Absolute Auto 1100 /uL (0-900); Monocytes Percent Auto 12.8 % (3-14); Neutrophils Absolute Auto 4900 /uL (1500-7000); Neutrophils Percent Auto 58.9 % (50-75); Platelet Count 235 X10^3/uL (150-400); Red Blood Cell Count 4.75 X10^6/uL (4.5-5.9); Red Cell Distribution Width 13.9 % (11.6-14.8); White Blood Cell Count 8.4 X10^3/uL (4.5-11.0)
[2024-04-07 14:03] LABS: PTT Partial Thromboplastin Tim 32 SECONDS (25.1-36.5)
[2024-04-07 14:05] LABS: Alanine Aminotransferase 30 IU/L (<50); Albumin 4.2 g/dL (3.5-5.0); Albumin Globulin Ratio 1.4 (1.0-2.8); Alkaline Phosphatase 70 U/L (38-126); Aspartate Aminotransferase 30 IU/L (17-59); BUN Creatinine Ratio 20.4 (6-22); Bilirubin Total 0.5 mg/dL (0.2-1.3); Blood Urea Nitrogen 28 mg/dL (9-20); Calcium 9.5 mg/dL (8.4-10.2); Carbon Dioxide 29 mmol/L (22-32); Chloride 105 mmol/L (98-107); Creatine Kinase 71 U/L (55-170); Estimated Glomerular Filt Rate 52 mL/min (>60); Globulin 2.9 g/dL (1.7-4.1); Glucose 100 mg/dL (80-110); HEMOLYSIS < 15 (0-50); Lipase 104 U/L (23-300); Magnesium 1.8 mg/dL (1.6-2.3); Potassium 4.2 mmol/L (3.4-5.1); Sodium 141 mmol/L (137-145); Total Protein 7.1 g/dL (6.3-8.2)
[2024-04-07] MEDS: dilTIAZem 25 MG/5 ML SDV 10 MG IV (14:07)
[2024-04-07] MEDS: FUROSEMIDE 40 MG/4 ML VIAL IV (14:08)
[2024-04-07] MEDS: DILTIAZEM 125 MG/125 ML PIGGYBACK IV (14:08)
[2024-04-07 14:17] LABS: NT-proBNP (BNP-Adult 18+) 2170 pg/mL (<450)
[2024-04-07 14:19] LABS: Troponin I 0.478 ng/mL (0.01-0.034)
--- NOTE | 2024-04-07 14:24 | PC.NURSE ---
10mg push dose Diltiazem given and dilt gtt started. Pt HR down to 79 and bp 95/[address]. [address] Ibarra notified.
--- NOTE | 2024-04-07 14:43 | PC.NURSE ---
Dilt gtt resumed as per Dr Ibarra verbal order.
[2024-04-07] MEDS: HEPARIN 5,000 UNIT/ML VIAL 5000 UNIT IV (14:52)
[2024-04-07] MEDS: HEPARIN DRIP 25,000 UNIT/500 ML IV.SOLN 19.595 UNIT IV (14:52)
--- NOTE | 2024-04-07 16:05 | PM.HP.1 ---
History of Present Illness History of Present Illness Date Patient Seen: 04/07/24 Chief complaint: chest px, sob sent by pcp Narrative: From ED doctor: 78-year-old gentleman with a history of atrial fibrillation on baby aspirin only after Watchman procedure in the spring, supranuclear palsy, history of a TAVR at the [facility], diabetes, hypertension, coronary artery disease post bypass complaining of 3 weeks of chest pain when he goes to lay down at night. He has not complaining of chest pain during the day or with exertion. He notes that he has not had any change to his chronic edema, minimal on the left a bit more on the right. He does not describe exertional dyspnea, headaches no sensation of palpitations or his heart beating too fast. No recent fever cough or chills. Additional information: Is a very pleasant 78-year-old gentleman who has direct is indicating do not resuscitate and selective medical treatments. He lives at [facility], and presents today with progressive orthopnea and some dyspnea on exertion. He was also had intermittent chest pain and left arm pain. This pain has not been clearly positional. Nothing makes it better, or specifically worse. He was not short of breath when sitting still. He has a complex past medical history including bypass grafting, Watchman procedure, and TAVR. The patient was given diuretic in the emergency department found and found to be in atrial fibrillation with rapid response. He was given diltiazem as an infusion with better rate control as well as a heparin infusion for NSTEMI. He denies any chest pain upon arrival was breathing comfortably on room air. His ECG is notable for a conduction delay with an RSR prime and a rate of 120. The patient has chronic leg edema right greater than left, and has been taking all of his medications as prescribed recently. [facility] Medical History Coronary artery disease Hypertension Presence of Watchman left atrial appendage closure device Chronic atrial fibrillation High cholesterol Diverticulosis Aortic valve insufficiency Depression Surgical History H/O aortic valve replacement Social History household members: spouse Smoking Status: Never smoker alcohol intake: current substance use type: does not use Meds Home Medications and Allergies Home Medications Medication Instructions Recorded Confirmed Type amitriptyline 25 mg tablet 25 mg PO BID 05/20/19 04/07/24 History losartan 50 mg tablet 50 mg PO BID 05/20/19 04/07/24 History metoprolol succinate 25 mg 75 mg PO BID 05/20/19 04/07/24 History tablet,extended release 24 hr pantoprazole 40 mg tablet,delayed 40 mg PO QAM 05/20/19 04/07/24 History release (Protonix) perphenazine 2 mg tablet 2 mg PO BID 05/20/19 04/07/24 History rosuvastatin 5 mg tablet 5 mg PO BEDTIME 08/18/22 04/07/24 History sennosides 8.6 mg tablet (senna) 8.6 mg PO BID 08/18/22 04/07/24 History spironolactone 25 mg tablet 12.5 mg PO QAM 08/18/22 04/07/24 History metformin 500 mg tablet 500 mg PO DAILY 06/19/23 04/07/24 History aspirin 81 mg tablet,delayed 81 mg PO DAILY 04/07/24 04/07/24 History release ezetimibe 10 mg tablet 10 mg PO DAILY 04/07/24 04/07/24 History furosemide 20 mg tablet 20 mg PO DAILY 04/07/24 04/07/24 History Allergies Allergy/AdvReac Type Severity Reaction Status Date / Time rosuvastatin [ROSUVASTATIN] AdvReac Mild MYALGIAS Verified 07/25/23 14:03 Review of Systems Review of Systems Narrative: All else reviewed and otherwise unremarkable except as noted in the history and physical. Exam Vital Signs (past 8 hours): - 04/07/24 13:19 04/07/24 13:20 04/07/24 13:20 Pulse Rate 129 H 133 H 132 H Respiratory Rate 30 H 20 21 Blood Pressure 116/80 Pulse Oximetry 99 98 99 Oxygen Delivery Method Room Air Oxygen Flow Rate 04/07/24 13:25 04/07/24 13:30 04/07/24 13:35 Pulse Rate 129 H 127 H 127 H Respiratory Rate 29 H 24 24 Blood Pressure Pulse Oximetry 98 98 97 Oxygen Delivery Method Room Air Oxygen Flow Rate 4 04/07/24 13:37 04/07/24 13:37 04/07/24 13:40 Pulse Rate 130 H 129 H Respiratory Rate 24 24 Blood Pressure 128/92 H Pulse Oximetry 97 98 Oxygen Delivery Method Oxygen Flow Rate 04/07/24 13:45 04/07/24 13:50 04/07/24 13:55 Pulse Rate 127 H 127 H 129 H Respiratory Rate 21 23 20 Blood Pressure Pulse Oximetry 98 97 98 Oxygen Delivery Method Oxygen Flow Rate 04/07/24 14:00 04/07/24 14:05 04/07/24 14:07 Pulse Rate 128 H 128 H 123 H Respiratory Rate 23 23 Blood Pressure 128/92 H Pulse Oximetry 97 97 Oxygen Delivery Method Oxygen Flow Rate 04/07/24 14:10 04/07/24 14:15 04/07/24 14:19 Pulse Rate 124 H 125 H 78 Respiratory Rate 25 H 23 22 Blood Pressure Pulse Oximetry 96 98 97 Oxygen Delivery Method Room Air Oxygen Flow Rate 04/07/24 14:19 04/07/24 14:20 04/07/24 14:20 Pulse Rate 79 Respiratory Rate 21 Blood Pressure 100/58 L 103/63 Pulse Oximetry 96 Oxygen Delivery Method Oxygen Flow Rate 04/07/24 14:25 04/07/24 14:26 04/07/24 14:26 Pulse Rate 79 78 Respiratory Rate 20 19 Blood Pressure 95/56 L Pulse Oximetry 96 95 Oxygen Delivery Method Oxygen Flow Rate 04/07/24 14:30 04/07/24 14:30 04/07/24 14:35 Pulse Rate 74 93 H Respiratory Rate 18 33 H Blood Pressure 93/51 L Pulse Oximetry 96 98 Oxygen Delivery Method Oxygen Flow Rate 04/07/24 14:36 04/07/24 14:36 04/07/24 14:40 Pulse Rate 102 H 95 H Respiratory Rate 25 H 25 H Blood Pressure 114/57 L Pulse Oximetry 96 98 Oxygen Delivery Method Oxygen Flow Rate 04/07/24 14:40 04/07/24 14:45 04/07/24 14:45 Pulse Rate 81 Respiratory Rate 20 Blood Pressure 104/59 L 92/62 Pulse Oximetry 96 Oxygen Delivery Method Oxygen Flow Rate 04/07/24 14:50 04/07/24 14:50 04/07/24 14:55 Pulse Rate 82 78 Respiratory Rate 21 20 Blood Pressure 107/57 L Pulse Oximetry 96 97 Oxygen Delivery Method Oxygen Flow Rate 04/07/24 14:55 04/07/24 15:00 04/07/24 15:00 Pulse Rate 96 H Respiratory Rate 22 Blood Pressure 98/54 L 133/69 Pulse Oximetry 98 Oxygen Delivery Method Oxygen Flow Rate 04/07/24 15:05 04/07/24 15:05 04/07/24 15:10 Pulse Rate 88 93 H Respiratory Rate 14 45 H Blood Pressure 116/67 Pulse Oximetry 97 95 Oxygen Delivery Method Oxygen Flow Rate 04/07/24 15:10 Pulse Rate Respiratory Rate Blood Pressure 103/66 Pulse Oximetry Oxygen Delivery Method Oxygen Flow Rate Oxygen Delivery Method Room Air Oxygen Flow Rate 4 Narrative Exam Narrative: NAD, alert and oriented, fluent speech, calm. Normocephalic skull, EOMI, anicteric sclera, symmetric pupils. Oropharynx unremarkable, no droop. Neck supple, midline trachea, no adenopathy. Lungs clear, normal rate and effort. Heart regular, no murmur gallop or rub. Abdomen is soft, non distended and non tender. Extremities are with pedal edema. Skin is free of rash or lesions. Joints are not swollen or deformed. Judgment appears to be normal. Objective ECG Impression: Atrial flutter with variable AV block with premature ventricular or aberrantly conducted complexes Low voltage QRS RSR' or QR pattern in V1 suggests right ventricular conduction delay Septal infarct , age undetermined Lateral injury pattern Imaging Chest x-ray: Radiologist's impression: No acute pulmonary process. Labs 04/07/24 13:45 04/07/24 13:45 Labs: Laboratory Results - last 24 hr 04/07/24 13:45 WBC 8.4 RBC 4.75 Hgb 14.4 Hct 42.6 MCV 89.9 MCH 30.3 MCHC 33.7 RDW 13.9 Plt Count 235 Neut % (Auto) 58.9 Lymph % (Auto) 22.4 L [place] % (Auto) 12.8 Eos % (Auto) 4.9 H Baso % (Auto) 1.0 Neut # (Auto) 4900 Lymph # (Auto) 1900 [place] # (Auto) 1100 H Eos # (Auto) 400 Baso # (Auto) 100 PT 12.0 INR 1.0 APTT 32 Sodium 141 Potassium 4.2 Chloride 105 Carbon Dioxide 29 BUN 28 H Creatinine 1.37 H Estimated GFR 52 L BUN/Creatinine Ratio 20.4 Glucose 100 Calcium 9.5 Magnesium 1.8 Total Bilirubin 0.5 AST 30 ALT 30 Alkaline Phosphatase 70 Total Creatine Kinase 71 Troponin I 0.478 H* NT-Pro-B Natriuret Pep 2170 H Total Protein 7.1 Albumin 4.2 Globulin 2.9 Albumin/Globulin Ratio 1.4 Lipase 104 Assessment & Plan Assessment & Plan narrative: 1. Atrial flutter with rapid ventricular response, present on admission and active. 2. NSTEMI, present on admission and active. 3. Acute heart failure with unknown LV EF, present on admission and active. 4. CAD, present on admission and active. 5. Previous CABG, present on admission and active. 6. Hypertension, present on admission and active. 7. DM, present on admission and active. 8. Supranuclear palsy, present on admission and active. 9. Remote TAVR, present on admission and active. PLAN: -rate control diltiazem. -diuresis able. -cardioprotective medications including aspirin, and low-dose beta blockade. We will also start a statin at high dose. -simple measures per the patient, no heroics. We will reinstitute his beta blockade and wean his diltiazem drip. We will perform a 2D echo tomorrow, if there is no evidence of severe wall motion abnormality or thrombus we may consider an amiodarone infusion. CODE status: DNR, selective medical interventions. Time-Based Coding :: 40 min spent with patient and on the chart (including review of chart, obtaining history, exam, reviewing outside data, placing orders, documenting exam and treatment plan, and counseling patient) on 04/07. Quality MIPS - Admit I confirm the patient?s Advance Care Plan is present, Code status is documented, Surrogate decision maker is in patient?s record [If Yes, STOP here]: Yes MIPS - Meds 'Current medications' to include all prescriptions, [id number] products, herbals, cannabis/cannabidiol products, and vitamin/mineral/dietary (nutritional) supplements. I have utilized all available resources to obtain, update, or review the patient?s current medications. [If Yes, STOP here]: Yes
[2024-04-07 16:59] LABS: Troponin I 0.652 ng/mL (0.01-0.034)
[2024-04-07] MEDS: ATORVASTATIN 20 MG TABLET 10 MG PO (20:52)
[2024-04-07] MEDS: SENNOSIDES 8.6 MG TABLET PO (20:55)
[2024-04-07] MEDS: SODIUM CHLORIDE 0.9% FLUSH 10 ML IV (20:55)
[2024-04-07 21:12] LABS: PTT Partial Thromboplastin Tim 92 SECONDS (25.1-36.5)
[2024-04-07] MEDS: LOSARTAN 50 MG TABLET PO (21:33)
[2024-04-07] MEDS: METOPROLOL ER 25 MG TABLET 75 MG PO (21:34)
[2024-04-07 21:50] LABS: MRSA (Nasal) PCR NOT DETECTED (Not Detect)
[2024-04-08] VITALS (42 sets, daily range): BP systolic 80–142; BP diastolic 45–95; PULSE 75–130; RESP 13–33; TEMP 36.1–36.8; O2SAT 92–98
--- NOTE | 2024-04-08 00:30 | PC.NURSE ---
Patient HR 74, BP 89/55, alert, oriented to person, place time and situation, Diltiazem drip paused. Toprol XL 75 mg and Losartan 50 mg administered as scheduled at 2130H.
[2024-04-08 04:29] LABS: Add Manual Diff / Slide Review NO; Basophils Absolute Auto 100 /uL (0-100); Basophils Percent Auto 0.8 % (0-2); Eosinophils Absolute Auto 500 /uL (0-450); Eosinophils Percent Auto 6.1 % (2-4); Hematocrit 41.6 % (41-53); Hemoglobin 13.7 g/dL (13.5-17.5); Lymphocytes Absolute Auto 2400 /uL (1100-4500); Lymphocytes Percent Auto 28.5 % (25-40); Mean Corpuscular HGB Conc 33.1 % (30-36); Mean Corpuscular Hemoglobin 29.8 PG (26-34); Mean Corpuscular Volume 90.1 fL (80-100); Monocytes Absolute Auto 1000 /uL (0-900); Monocytes Percent Auto 11.7 % (3-14); Neutrophils Absolute Auto 4400 /uL (1500-7000); Neutrophils Percent Auto 52.9 % (50-75); Platelet Count 195 X10^3/uL (150-400); Red Blood Cell Count 4.62 X10^6/uL (4.5-5.9); Red Cell Distribution Width 14.1 % (11.6-14.8); White Blood Cell Count 8.3 X10^3/uL (4.5-11.0)
[2024-04-08 04:38] LABS: Blood Urea Nitrogen 26 mg/dL (9-20); Calcium 8.8 mg/dL (8.4-10.2); Carbon Dioxide 28 mmol/L (22-32); Chloride 103 mmol/L (98-107); Estimated Glomerular Filt Rate 59 mL/min (>60); Glucose 129 mg/dL (80-110); HEMOLYSIS < 15 (0-50); Potassium 3.7 mmol/L (3.4-5.1); Sodium 138 mmol/L (137-145)
[2024-04-08 04:39] LABS: PTT Partial Thromboplastin Tim 73 SECONDS (25.1-36.5)
[2024-04-08] MEDS: PANTOPRAZOLE DR 40 MG TABLET PO (06:34)
--- NOTE | 2024-04-08 08:05 | PM.PN.1 ---
Subjective Subjective Interval history: He is feeling better. Now CP or dyspnea. No abdomen pain. Exam Vital Signs (past 8 hours): - 04/08/24 00:31 04/08/24 00:31 04/08/24 01:00 Temperature Pulse Rate 75 Respiratory Rate 23 Blood Pressure 89/55 L 91/53 L Pulse Oximetry 93 Oxygen Flow Rate 04/08/24 01:00 04/08/24 01:30 04/08/24 01:30 Temperature Pulse Rate 76 78 Respiratory Rate 21 20 Blood Pressure 104/53 L Pulse Oximetry 92 93 Oxygen Flow Rate 0 04/08/24 02:00 04/08/24 02:00 04/08/24 02:30 Temperature Pulse Rate 80 Respiratory Rate 18 Blood Pressure 88/51 L 91/55 L Pulse Oximetry 92 Oxygen Flow Rate 0 04/08/24 02:30 04/08/24 03:00 04/08/24 03:00 Temperature Pulse Rate 97 H 83 Respiratory Rate 22 17 Blood Pressure 80/45 L Pulse Oximetry 94 93 Oxygen Flow Rate 0 04/08/24 04:00 04/08/24 04:01 04/08/24 04:01 Temperature 97.0 F L Pulse Rate 87 86 Respiratory Rate 18 16 Blood Pressure 88/62 L Pulse Oximetry 92 92 Oxygen Flow Rate 0 04/08/24 05:00 04/08/24 05:00 04/08/24 06:00 Temperature Pulse Rate 87 Respiratory Rate 13 Blood Pressure 95/69 95/62 Pulse Oximetry 94 Oxygen Flow Rate 0 04/08/24 06:00 04/08/24 07:00 04/08/24 07:00 Temperature Pulse Rate 97 H 112 H Respiratory Rate 21 21 Blood Pressure 96/67 Pulse Oximetry 95 94 Oxygen Flow Rate 0 Oxygen Delivery Method Room Air Oxygen Flow Rate 0 Narrative Exam Narrative: NAD, alert and oriented. Fluent speech. Speaking comfortably. Lungs are clear, normal rate and effort. Heart is regular, no murmur gallop or rub. Extra beats. Abdomen is soft, non distended. Extremities are free of edema. Objective ECG Impression: AFlutter RVR Imaging Chest x-ray: Radiologist's impression: No acute pulmonary process. Echo: Radiologist's impression: 1. The left ventricular contractility is moderately compromised. Estimated ejection fraction is 30 to 35%. There is akinesis of the apical segment. No LVH. Unable to comment on diastolic function. 2. The right ventricular contractility is normal. 3. There is mild right atrial enlargement. All other cardiac chambers appear to be of normal size. 4. Mild to moderate mitral regurgitation. 5. Moderate tricuspid regurgitation with estimated pulmonary systolic artery pressure of 30 mmHg. 6. No obvious intracardiac shunts. 7. There appears to be a hyperechogenic linear density in the right atrium in limited views. Cannot exclude right atrial catheter. 8. No hemodynamically significant pericardial effusion. Conclusion: Moderately depressed left ventricular systolic function with apical akinesis. 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 Labs 04/08/24 04:16 04/08/24 04:16 Labs: Laboratory Results - last 24 hr 04/07/24 04/07/24 04/07/24 13:45 16:18 16:19 WBC 8.4 RBC 4.75 Hgb 14.4 Hct 42.6 MCV 89.9 MCH 30.3 MCHC 33.7 RDW 13.9 Plt Count 235 Neut % (Auto) 58.9 Lymph % (Auto) 22.4 L [place] % (Auto) 12.8 Eos % (Auto) 4.9 H Baso % (Auto) 1.0 Neut # (Auto) 4900 Lymph # (Auto) 1900 [place] # (Auto) 1100 H Eos # (Auto) 400 Baso # (Auto) 100 PT 12.0 INR 1.0 APTT 32 Sodium 141 Potassium 4.2 Chloride 105 Carbon Dioxide 29 BUN 28 H Creatinine 1.37 H Estimated GFR 52 L BUN/Creatinine Ratio 20.4 Glucose 100 Calcium 9.5 Magnesium 1.8 Total Bilirubin 0.5 AST 30 ALT 30 Alkaline Phosphatase 70 Total Creatine Kinase 71 Troponin I 0.478 H* 0.652 H* NT-Pro-B Natriuret Pep 2170 H Total Protein 7.1 Albumin 4.2 Globulin 2.9 Albumin/Globulin Ratio 1.4 Lipase 104 Nasal Screen MRSA (PCR) Not detected 04/07/24 04/08/24 20:46 04:16 WBC 8.3 RBC 4.62 Hgb 13.7 Hct 41.6 MCV 90.1 MCH 29.8 MCHC 33.1 RDW 14.1 Plt Count 195 Neut % (Auto) 52.9 Lymph % (Auto) 28.5 [place] % (Auto) 11.7 Eos % (Auto) 6.1 H Baso % (Auto) 0.8 Neut # (Auto) 4400 Lymph # (Auto) 2400 [place] # (Auto) 1000 H Eos # (Auto) 500 H Baso # (Auto) 100 PT INR APTT 92 H* D 73 H* D Sodium 138 Potassium 3.7 Chloride 103 Carbon Dioxide 28 BUN 26 H Creatinine 1.24 Estimated GFR 59 L BUN/Creatinine Ratio 21.0 Glucose 129 H Calcium 8.8 Magnesium Total Bilirubin AST ALT Alkaline Phosphatase Total Creatine Kinase Troponin I 1.020 H* NT-Pro-B Natriuret Pep Total Protein Albumin Globulin Albumin/Globulin Ratio Lipase Nasal Screen MRSA (PCR) [facility] Medical History Coronary artery disease Hypertension Presence of Watchman left atrial appendage closure device Chronic atrial fibrillation High cholesterol Diverticulosis Aortic valve insufficiency Depression Surgical History H/O aortic valve replacement Social History household members: none Smoking Status: Never smoker alcohol intake: current substance use type: does not use Assessment & Plan Assessment & Plan narrative: 1. Atrial flutter with rapid ventricular response, present on admission and improved. 2. NSTEMI vs Stress Cardiomyopathy, present on admission and active. 3. Acute systolic heart failure, present on admission and active. 4. CAD, present on admission and active. 5. Previous CABG, present on admission and active. 6. Hypertension, present on admission and active. 7. DM, present on admission and active. 8. Supranuclear palsy, present on admission and active. 9. Remote TAVR, present on admission and active. 10. Possible left atrial clot, present on admission and active. PLAN: -titrate up beta blockade, we will treat cardiomyopathy and tachycardia with beta blockade preferentially. -continue heparin drip for NSTEMI versus stress cardiomyopathy as well as possible atrial clot. We will avoid cardioversion. Anticipate conversion to apixaban at 48 hours of heparin. -trend troponins -diuresis as able. -cardioprotective medications including aspirin, and low-dose beta blockade. We will also start a statin at high dose. -simple measures per the patient, no heroics. We will reinstitute his beta blockade and wean his diltiazem drip. CODE status: DNR, selective medical interventions. NAKUL/DISPO: Nell Hinson 04/09 if he is doing well. Time-Based Coding :: 30 min spent with patient and on the chart (including review of chart, obtaining history, exam, reviewing outside data, placing orders, documenting exam and treatment plan, and counseling patient) on 04/08. Quality VTE Deep Vein Thrombosis/Pulmonary Embolism Present on Admission: No
--- NOTE | 2024-04-08 08:13 | DI.ECHO.S_ITS ---
[facility] : : [address] : : [place] : : [id number] : : Phone: [phone] Echocardiogram Report + + :Name: MARY NELSON Study Date: 04/08/2024 Height: 69.5 in: :[facility] ReadingLocation: Weight: 190 lb : : Gender: Male BSA: 2.0 m2 : :: 1945 Age: 78 yrs BP: 136/55 mmHg: :Reason For Study: NSTEMI, ASSESS WMA : :Ordering Physician: BRIE, : :NNAMDI Hi Performed By: Elly Gordillo : :Referring: NNAMDI BAIRD : + + Interpretation Summary 1. The left ventricular contractility is moderately compromised. Estimated ejection fraction is 30 to 35%. There is akinesis of the apical segment. No LVH. Unable to comment on diastolic function. 2. The right ventricular contractility is normal. 3. There is mild right atrial enlargement. All other cardiac chambers appear to be of normal size. 4. Mild to moderate mitral regurgitation. 5. Moderate tricuspid regurgitation with estimated pulmonary systolic artery pressure of 30 mmHg. 6. No obvious intracardiac shunts. 7. There appears to be a hyperechogenic linear density in the right atrium in limited views. Cannot exclude right atrial catheter. 8. No hemodynamically significant pericardial effusion. Conclusion: Moderately depressed left ventricular systolic function with apical akinesis. 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 Procedure: A two-dimensional transthoracic echocardiogram with color flow and Doppler was performed. The study quality was technically adequate. There is no prior echocardiogram noted for this patient. A contrast injection of Definity was performed to improve assessment of LV function. The patient was in atrial fibrillation with heart rates between 85-126 bpm during the exam. Left Ventricle: The left ventricle is normal in size and wall thickness. The ejection fraction is estimated to be 30-35%. Diastolic function could not be accurately assessed due to atrial fibrillation. Right Ventricle: The right ventricle is normal in size and function. Atria: The left atrial size is normal. The right atrium is borderline dilated. There is no Doppler evidence for an interatrial shunt. Mitral Valve: The mitral valve leaflets appear mildly thickened, but open well. There is mild to moderate mitral regurgitation. Aortic Valve: There is a bioprosthetic aortic valve. There is no aortic valve stenosis. There is trace aortic regurgitation. Tricuspid Valve: The tricuspid valve is normal in structure and function. There is moderate tricuspid regurgitation. Right ventricular systolic pressure is estimated to be 30 mmHg plus the clinically estimated CVP which cannot be estimated on this exam. Pulmonic Valve: The pulmonic valve leaflets are thin and pliable; valve motion is normal. There is no pulmonic valvular regurgitation. Great Vessels: The aortic root is not well visualized. The dimensions of the ascending aorta are normal. The inferior vena cava was not well visualized. Pericardium/ Pleura There is no pericardial effusion. There is no pleural effusion. MMode/2D Measurements & Calculations LVIDd: 4.0 cm LVOT diam: 2.0 cm LVIDs: 3.0 cm asc Aorta Diam: 2.9 cm FS: 26.2 % IVSd: 0.93 cm LVPWd: 0.94 cm LV gar. diameter/BSA (cm/m^2): 2.0 LV sys. diameter/BSA (cm/m^2): 1.5 LA A2 area: 20.7 cm2 RA long axis: 4.7 cm LA A4 area: 16.7 cm2 RA area: 13.7 cm2 LA length (vol): 5.2 cm RA vol: 33.7 ml LA vol: 56.8 ml RA : 16.6 ml/m2 LA vol index: 27.9 ml/m2 RVD1 (basal): 3.1 cm TAPSE: 1.7 cm Doppler Measurements & Calculations Ao V2 max: 181.3 cm/sec LVOT Max Rudolph: 87.8 cm/sec Ao V2 mean: 127.8 cm/sec LV V1 max P.1 mmHg Ao max P.1 mmHg LV V1 VTI: 14.6 cm Ao mean P.3 mmHg MORRIS(I,D): 1.7 cm2 Ao V2 VTI: 27.2 cm MORRIS(V,D): 1.6 cm2 sev ratio: 0.54 MORRIS indexed to BSA (cm^2/m^2): 0.85 MV E max rudolph: 129.2 cm/sec TR max rudolph: 274.0 cm/sec MV A max rudolph: 1.0 cm/sec TR max P.0 mmHg MV E/A: 124.4 PA V2 max: 84.5 cm/sec Med Peak E' Rudolph: 7.5 cm/sec PA V2 mean: 62.9 cm/sec E/E' med: 17.2 PA mean P.7 mmHg Lat Peak E' Rudolph: 13.0 cm/sec PA pr(Accel): 27.6 mmHg E/E' lat: 9.9 E/e' average: 13.6 MV dec time: 0.16 sec MVA(VTI): 1.5 cm2 MV V2 mean: 84.0 cm/sec SV(LVOT): 47.2 ml MV mean P.5 mmHg MV V2 VTI: 32.3 cm Reading Physician:
[2024-04-08] MEDS: EZETIMIBE 10 MG TABLET PO (08:33)
[2024-04-08] MEDS: SENNOSIDES 8.6 MG TABLET PO ×2 (08:34→20:32)
[2024-04-08] MEDS: SODIUM CHLORIDE 0.9% FLUSH 10 ML IV ×2 (08:34→20:34)
[2024-04-08] MEDS: FUROSEMIDE 20 MG TABLET PO (08:34)
[2024-04-08] MEDS: ASPIRIN EC 81 MG TABLET PO (08:34)
[2024-04-08] MEDS: SPIRONOLACTONE 12.5 MG TABLET PO (08:39)
[2024-04-08] MEDS: METOPROLOL ER 25 MG TABLET 75 MG PO ×2 (08:49→20:32)
--- NOTE | 2024-04-08 08:59 | CM.DANOTE ---
Addendum entered by ANSELMO Godoy 04/08/24 11:51: ADD: Due to trops, PT/OT on hold this morning and will check in this afternoon to see if pt more medically appropriate to participate or if he should remain on hold until tomorrow. SW faxed initial clinicals to [facility] to review and will follow closely for PT/OT recommendations for further coordination with [facility]. SW made initial referral to [facility] to review in case SNF needed. BF Original Note: Patient is an 78 yo male who was admitted on 04/07/24 INPT Status for NSTEMI/AFIB. Pt has MCR and [employer] for insurance and his PCP is Dr. Nimo Castelan. EMR was reviewed. Per MD, pt with hx of Parkinsons, AFIB and DM and admitted to ICU for medication management of NSTEMI and AFIB. SW met bedside with pt and explained role and pt confirms he lives at [facility] for the past two years and receives assist with meals, transferring into his w/c and bathing but pt takes his own medications. Pt used to use a FWW for mobility but states since he had COVID a year ago he has not been able to safely ambulate without a w/c. Pt is currently participating in PT at [facility] in their outpt therapy team inside of [facility] and attempting to build up his arm strength. Pt denies any hx of SNF and states his preference is to return to [facility] at d/c but SW discussed need to see how pt does with PT/OT and then coordination with Herlinda at [facility] to confirm they feel they can meet his needs and SNF not needed. Pt acknowledges understanding. Pt confirms no local family and his POA is his friend Alecia who lives on [address]. PT/OT ordered and pending. Plan: SW to follow closely for PT/OT eval and recommendations and to fax [facility] pt's clinicals to review to determine SNF vs return to [facility]. 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 Yes Advance Directives on File Yes History Provided By Patient,Medical Record Has Patient been admitted in last 30 No days? Prior Living Arrangements Assisted Living Household Members none Type of transporation used prior to Relies on Others admit Facility Name Admitted From: [facility] Willing to Return to Facility? Yes Independent with ADL's No: Parkinsons Is patient alert and oriented? Yes Needs Assistance With Bathing,Meal Prep,Home Chores / Shopping Caregiver for Another No Community Services used prior to Physical Therapy admission: Comment Participating in PT at [facility] DME Already Rented / Owned Wheelchair Comment No longer can use his FWW, mostly w/c for mobility Patient/Family Preference Long Term Facility Comment Likely SNF but pt preference is return to [facility], PT/ OT pending Barriers to Discharge No Discharge Plan Long Term Facility Community Services Physical Therapy Transportation Arrangement Facility van Additional Comment Pending PT/OT to determine SNF vs [facility] Whiteboard Updated in Patient Room with Yes name and ext. # of Loading Machine Operator Review Status In Process Please Provide Date Initial DC 04/08/24 Assessment Was Performed Next Review Type Continued Stay Review
[2024-04-08 09:38] LABS: Troponin I 0.948 ng/mL (0.01-0.034)
--- NOTE | 2024-04-08 09:40 | PT-IP ANOTE ---
PT eval received and EMR reviewed. pt still has troponin level trending up. Talked with nurse and stated that pt still on IV heparin and troponin level up this morning and pt not appropriate to do PT at this time. will hold PT and will f/u.
[2024-04-08 11:14] LABS: PTT Partial Thromboplastin Tim 58 SECONDS (25.1-36.5)
[2024-04-08] MEDS: METOPROLOL IR 25 MG TABLET PO (12:55)
--- NOTE | 2024-04-08 12:57 | OT.IPNOTE ---
Per nursing just put pt back on Diltiazem. To check on pt tomorrow for OT eval if medically appropriate.
--- NOTE | 2024-04-08 13:51 | PT-IP ANOTE ---
Checked with nurse regarding pt and stated that pt is back on Diltiazem drip. PT hold for today. will f/u.
[2024-04-08 17:48] LABS: PTT Partial Thromboplastin Tim 50 SECONDS (25.1-36.5)
[2024-04-08] MEDS: ATORVASTATIN 20 MG TABLET 10 MG PO (20:32)
[2024-04-08] MEDS: LOSARTAN 50 MG TABLET PO (20:32)
[2024-04-08] MEDS: HEPARIN DRIP 25,000 UNIT/500 ML IV.SOLN 14.696 UNIT IV (22:51)
[2024-04-09] VITALS (17 sets, daily range): BP systolic 102–134; BP diastolic 55–92; PULSE 89–124; RESP 14–35; TEMP 35.9–36.5; O2SAT 93–95
[2024-04-09 04:25] LABS: Add Manual Diff / Slide Review NO; Basophils Absolute Auto 100 /uL (0-100); Basophils Percent Auto 0.9 % (0-2); Eosinophils Absolute Auto 400 /uL (0-450); Eosinophils Percent Auto 5.4 % (2-4); Hematocrit 40.3 % (41-53); Hemoglobin 13.9 g/dL (13.5-17.5); Lymphocytes Absolute Auto 2200 /uL (1100-4500); Lymphocytes Percent Auto 27.7 % (25-40); Mean Corpuscular HGB Conc 34.5 % (30-36); Mean Corpuscular Hemoglobin 30.3 PG (26-34); Mean Corpuscular Volume 87.9 fL (80-100); Monocytes Absolute Auto 900 /uL (0-900); Monocytes Percent Auto 10.8 % (3-14); Neutrophils Absolute Auto 4400 /uL (1500-7000); Neutrophils Percent Auto 55.2 % (50-75); Platelet Count 211 X10^3/uL (150-400); Red Blood Cell Count 4.59 X10^6/uL (4.5-5.9); Red Cell Distribution Width 13.8 % (11.6-14.8)
[2024-04-09 05:08] LABS: PTT Partial Thromboplastin Tim 56 SECONDS (25.1-36.5)
[2024-04-09 05:20] LABS: Troponin I 0.527 ng/mL (0.01-0.034)
[2024-04-09 05:47] LABS: BUN Creatinine Ratio 21.3 (6-22); Blood Urea Nitrogen 23 mg/dL (9-20); Carbon Dioxide 27 mmol/L (22-32); Chloride 102 mmol/L (98-107); Estimated Glomerular Filt Rate > 60 mL/min (>60); Glucose 123 mg/dL (80-110); HEMOLYSIS 23 (0-50); Potassium 4.1 mmol/L (3.4-5.1); Sodium 137 mmol/L (137-145)
[2024-04-09] MEDS: PANTOPRAZOLE DR 40 MG TABLET PO (06:20)
[2024-04-09] MEDS: ASPIRIN EC 81 MG TABLET PO (08:29)
[2024-04-09] MEDS: EZETIMIBE 10 MG TABLET PO (08:29)
[2024-04-09] MEDS: SENNOSIDES 8.6 MG TABLET PO (08:29)
[2024-04-09] MEDS: SPIRONOLACTONE 12.5 MG TABLET PO (08:29)
[2024-04-09] MEDS: FUROSEMIDE 20 MG TABLET PO (08:30)
[2024-04-09] MEDS: SODIUM CHLORIDE 0.9% FLUSH 10 ML IV (08:30)
[2024-04-09] MEDS: LOSARTAN 50 MG TABLET PO (08:31)
[2024-04-09] MEDS: METOPROLOL ER 25 MG TABLET 100 MG PO (08:49)
--- NOTE | 2024-04-09 12:56 | PM.DS.1 ---
History of Present Illness History of Present Illness Chief complaint: chest px, sob sent by pcp Narrative: From ED doctor: 78-year-old gentleman with a history of atrial fibrillation on baby aspirin only after Watchman procedure in the spring, supranuclear palsy, history of a TAVR at the [facility], diabetes, hypertension, coronary artery disease post bypass complaining of 3 weeks of chest pain when he goes to lay down at night. He has not complaining of chest pain during the day or with exertion. He notes that he has not had any change to his chronic edema, minimal on the left a bit more on the right. He does not describe exertional dyspnea, headaches no sensation of palpitations or his heart beating too fast. No recent fever cough or chills. Additional information: Is a very pleasant 78-year-old gentleman who has direct is indicating do not resuscitate and selective medical treatments. He lives at [facility], and presents today with progressive orthopnea and some dyspnea on exertion. He was also had intermittent chest pain and left arm pain. This pain has not been clearly positional. Nothing makes it better, or specifically worse. He was not short of breath when sitting still. He has a complex past medical history including bypass grafting, Watchman procedure, and TAVR. The patient was given diuretic in the emergency department found and found to be in atrial fibrillation with rapid response. He was given diltiazem as an infusion with better rate control as well as a heparin infusion for NSTEMI. He denies any chest pain upon arrival was breathing comfortably on room air. His ECG is notable for a conduction delay with an RSR prime and a rate of 120. The patient has chronic leg edema right greater than left, and has been taking all of his medications as prescribed recently. Discharge Providers Provider Date of admission: 04/07/24 15:20 Discharge Date: 04/09/24 Primary care physician: Nimo Castelan MD Consults: 04/07/24 16:28 Consult to [facility] [place] [employer] Techn[employer] Routine Comment: [employer] Technician Consult needed for:: Unable to care for self Comment: may need additional help at home. his parkinson's/needs are advancing and may need further help than [facility] can provide. 04/08/24 08:47 Consult to Occupational Therapy Evaluate & Treat Comment: Physician Instructions: Evaluate and treat Consult to Physical Therapy Evaluate & Treat Comment: Physician Instructions: Evaluate and Treat 04/09/24 10:17 Consult to Physical Therapy Evaluate & Treat Comment: Physician Instructions: Evaluate and Treat Discharge provider: Luis Multani MD Summary Hospital Course Discharge Diagnosis: 1. Atrial flutter with rapid ventricular response, present on admission and improved. 2. NSTEMI vs Stress Cardiomyopathy, present on admission and active. 3. Acute systolic heart failure, present on admission and active. 4. CAD, present on admission and active. 5. Previous CABG, present on admission and active. 6. Hypertension, present on admission and active. 7. DM, present on admission and active. 8. Supranuclear palsy, present on admission and active. 9. Remote TAVR, present on admission and active. 10. Possible left atrial clot, present on admission and active. Hospital Course: The patient presented with progressive orthopnea and dyspnea on exertion. He was found to be mildly volume other overloaded and in a flutter with RVR. The patient was given diuretic and rate controlled with diltiazem IV as well as escalating doses of his metoprolol. He did improve with his rate control. He has a Watchman procedure in the past and is not on anticoagulation. He has a GI bleed in 2018. The patient had an echo which revealed an apical hypokinesis consistent with a stress cardiomyopathy. The patient was on heparin for 48 hours for possible NSTEMI, pending results of his echo. The patient had improved to baseline was able to ambulate and move around without difficulty as he usually does, transferring from bed to wheelchair and wheelchair to commode. His heart rate was well-controlled on metoprolol 100 b.i.d. on the day of discharge in his enzymes peaked at about 1.0. The patient was discussed with Dr. Potter of Cardiology at [facility]. He reviewed previous echos revealing a much higher EF. He was unsure if this was tachycardia mediated or stress cardiomyopathy causing the depression and EF but recommended continuing the metoprolol at 100 b.i.d. and no anticoagulation. He will help arrange for an expedited cardiology follow up at [facility]. Status at Discharge Cognitive/behavioral status at discharge: oriented Functional status at discharge: wheelchair bound Overall status at discharge: patient is back to baseline Time Spent with Patient Time spent: Greater than 30 minutes Exam Vital Signs (past 8 hours): - 04/09/24 05:00 04/09/24 05:00 04/09/24 06:00 Temperature Pulse Rate 95 H 90 Respiratory Rate 19 20 Blood Pressure 110/77 102/56 L Pulse Oximetry 93 93 Oxygen Delivery Method Oxygen Flow Rate 0 0 04/09/24 07:00 04/09/24 07:00 04/09/24 07:00 Temperature Pulse Rate 99 H Respiratory Rate 16 Blood Pressure 110/73 Pulse Oximetry 93 Oxygen Delivery Method Room Air Oxygen Flow Rate 04/09/24 08:00 04/09/24 08:00 04/09/24 09:00 Temperature 97.7 F Pulse Rate 107 H 111 H Respiratory Rate 23 24 Blood Pressure 112/76 Pulse Oximetry 93 94 Oxygen Delivery Method Oxygen Flow Rate 04/09/24 09:01 04/09/24 09:01 04/09/24 09:19 Temperature Pulse Rate 113 H 91 H Respiratory Rate 24 Blood Pressure 113/72 120/61 Pulse Oximetry 93 Oxygen Delivery Method Oxygen Flow Rate 04/09/24 10:00 04/09/24 10:00 04/09/24 11:11 Temperature 97.7 F Pulse Rate 104 H 103 H Respiratory Rate 20 27 H Blood Pressure 123/63 Pulse Oximetry 93 Oxygen Delivery Method Oxygen Flow Rate 04/09/24 11:13 04/09/24 11:13 Temperature Pulse Rate 111 H Respiratory Rate 25 H Blood Pressure 130/92 H Pulse Oximetry 95 Oxygen Delivery Method Oxygen Flow Rate Oxygen Delivery Method Room Air Oxygen Flow Rate 0 Narrative Exam Narrative: NAD, alert and oriented. Fluent speech. Lungs are clear, normal rate and effort. Heart is irregular, no murmur gallop or rub. Abdomen is soft, non distended. Extremities are free of edema. Objective ECG Impression: Atrial fibrillation with rapid response Imaging Echo: Radiologist's impression: 1. The left ventricular contractility is moderately compromised. Estimated ejection fraction is 30 to 35%. There is akinesis of the apical segment. No LVH. Unable to comment on diastolic function. 2. The right ventricular contractility is normal. 3. There is mild right atrial enlargement. All other cardiac chambers appear to be of normal size. 4. Mild to moderate mitral regurgitation. 5. Moderate tricuspid regurgitation with estimated pulmonary systolic artery pressure of 30 mmHg. 6. No obvious intracardiac shunts. 7. There appears to be a hyperechogenic linear density in the right atrium in limited views. Cannot exclude right atrial catheter. 8. No hemodynamically significant pericardial effusion. Conclusion: Moderately depressed left ventricular systolic function with apical akinesis. 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 Chest x-ray: Radiologist's impression: No acute pulmonary process. Labs 04/09/24 03:48 04/09/24 03:48 Labs: Laboratory Results - last 24 hr 04/08/24 04/09/24 17:25 03:48 WBC 8.0 RBC 4.59 Hgb 13.9 Hct 40.3 L MCV 87.9 MCH 30.3 MCHC 34.5 RDW 13.8 Plt Count 211 Neut % (Auto) 55.2 Lymph % (Auto) 27.7 [place] % (Auto) 10.8 Eos % (Auto) 5.4 H Baso % (Auto) 0.9 Neut # (Auto) 4400 Lymph # (Auto) 2200 [place] # (Auto) 900 Eos # (Auto) 400 Baso # (Auto) 100 APTT 50 H 56 H Sodium 137 Potassium 4.1 Chloride 102 Carbon Dioxide 27 BUN 23 H Creatinine 1.08 Estimated GFR > 60 BUN/Creatinine Ratio 21.3 Glucose 123 H Calcium 9.0 Troponin I 0.527 H* PFSH Medical History Coronary artery disease Hypertension Presence of Watchman left atrial appendage closure device Chronic atrial fibrillation High cholesterol Diverticulosis Aortic valve insufficiency Depression Surgical History H/O aortic valve replacement Social History household members: none Smoking Status: Never smoker alcohol intake: current substance use type: does not use Discharge Assessment & Plan Assessment and Plan Assessment: 1. Atrial flutter with rapid ventricular response, present on admission and improved. 2. NSTEMI vs Stress Cardiomyopathy, present on admission and active. 3. Acute systolic heart failure, present on admission and active. 4. CAD, present on admission and active. 5. Previous CABG, present on admission and active. 6. Hypertension, present on admission and active. 7. DM, present on admission and active. 8. Supranuclear palsy, present on admission and active. 9. Remote TAVR, present on admission and active. 10. Possible left atrial clot, present on admission and active. Plan of Treatment: Discharge home on metoprolol 100 b.i.d., other medications will be the same. He will have an expedited follow up with [facility] Cardiology. Spoke with them over the phone to help coordinate this prior to him going home on the day of discharge. Discharge Plan Discharge Plan Patient Disposition: Assisted Living Other facility: [facility] Provider Discharge Comment: Stable for discharge home on admitted cardiac medications, close follow up with Cardiology at [facility]. They were contacted. Discharge orders & Medications Discharge Orders: Discharge (Order); Ordered 04/09/24 Ordered By: Luis Multani Prescriptions: New metoprolol succinate 50 mg Tablet Extended Release 24 Hr 100 mg PO BID Qty: 60 2RF Continued metformin 500 mg tablet 500 mg PO DAILY amitriptyline 25 mg tablet 25 mg PO BID perphenazine 2 mg tablet 2 mg PO BEDTIME losartan 50 mg Tablet 50 mg PO BID pantoprazole [Protonix] 40 mg tablet,delayed release (DR/EC) 40 mg PO QAM sennosides [senna] 8.6 mg Tablet 8.6 mg PO BID spironolactone 25 mg tablet 12.5 mg PO QAM rosuvastatin 5 mg tablet 5 mg PO BEDTIME aspirin 81 mg Tablet,Delayed Release (Dr/Ec) 81 mg PO DAILY furosemide 20 mg tablet 20 mg PO DAILY ezetimibe 10 mg tablet 10 mg PO DAILY Discontinued metoprolol succinate 25 mg tablet extended release 24 hr 75 mg PO BID Medication counseling provided by Pharmacist: No Follow up/Referrals: Earnest Posey MD [Physician] - 04/14/24 8:45 am (Appt:04/14 @ 0845 with Petrona De La Fuente @ Dr Posey office pleae arrive 15 min) Nimo Castelan MD [Primary Care Provider] - Discharge Health Status Multidrug resistant organism: No MDRO Diet/Activity/Treatments Diet: Low-sodium Food texture: Regular Activity: As tolerated, primarily transfers to a wheelchair. Visit Report/Discharge Packet Instructions: DI for Atrial Flutter, DI for Cardiomyopathy Stand Alone Forms: Congestive Heart Failure, Patient Portal/API Discharge Data Primary Care Provider: Nimo Castelan Quality VTE Deep Vein Thrombosis/Pulmonary Embolism Present on Admission: No
--- NOTE | 2024-04-09 13:18 | OT.IP.EVAL ---
Current Diagnoses Unspecified atrial flutter (04/07/24) Past Medical History (Last Reviewed 04/07/24 @ 16:06 by Luis Multani MD) Aortic valve insufficiency Chronic atrial fibrillation Coronary artery disease Depression Diverticulosis High cholesterol Hypertension Presence of Watchman left atrial appendage closure device Surgical History (Last Reviewed 04/07/24 @ 16:06 by Luis Multani MD) H/O aortic valve replacement Occupational Therapy Inpatient Evaluation/Re-Eval M1 PT/OT-IP Prior Functional Status Start: 04/09/24 12:59 Freq: NEEDED Status: Active Protocol: Document 04/09/24 11:31 [facility] (Rec: 04/09/24 13:18 [facility] [id number]) Medical Review Prior Functional Status Communication Independent Mobility and Gait Pt mainly just transfers to his to other surfaces with FWW and assist from staff. Activities of Daily Living and IADL's Staff assists with dressing, toileting, bathing, and IADL needs. Pt also has a private caregiver that he uses 2x/wk for 6 hours each to able to go back to his house at least once a month to [place]. Social History Household Members none Living Arrangements Assisted Living Home Environment High Toilet,Walk in Shower Home Equipment Front Wheel Walker,Manual Wheelchair,Power Wheelchair/ Scooter,Shower Seat with Backrest,Hand Held Shower,Grab Bars Near Toilet,Grab Bars In Shower Additional Social History Comment Pt has full assist at [place] and also participate in PT 4x /week per pt. Pt has a swivel shower chair. Pt also has an Up Walker due to his Parkinson 's. M2 OT-IP Current Condition Start: 04/09/24 12:59 Freq: Status: Active Protocol: Document 04/09/24 11:31 [facility] (Rec: 04/09/24 13:18 [facility] [id number]) Occupational Therapy Current Condition Current Condition Evaluation Date 04/09/24 Treatment Diagnosis NSTEMI Diagnosis Onset Date 04/07/31 M3 OT- IP Subjective and Pain Start: 04/09/24 12:59 Freq: Status: Active Protocol: Document 04/09/24 11:31 [facility] (Rec: 04/09/24 13:18 [facility] [id number]) OT- Subjective Occupational Therapy Visit Type Type Initial Evaluation Visit Start Time 11:31 Visit Stop Time 12:20 Occupational Therapy Visit Comments Patient Comments Pt agreed to get up. Patient/Caregiver Goals TO go home. OT Pain Assessment Pain When Pain Assessed At Rest Pain Present Pain Present Denied Pain M4 OT- IP ADL's Start: 04/09/24 12:59 Freq: Status: Active Protocol: Document 04/09/24 11:31 [facility] (Rec: 04/09/24 13:18 [facility] [id number]) OT NFR-[id number] Comments OT Self-Feeding Comments set-up assist OT ADL-Grooming Comments OT Grooming Comments Not performed. OT ADL-Oral Care Comments Oral Care Comments Not performed. OT ADL-Dressing General Eval Lower Body Dressing Ability Total Assistance Areas Needing Assistance Socks,Shoes Comments OT Dressing Comments Pt has assist for all dressing needs at home. Assisted pt to put on his sandals. OT ADL-Toileting Comments OT Toileting Comments Pt states has been able to use the urinal. OT ADL-Bathing Comments OT Bathing Comments Pt to have assist at home and has a swivel shower chair. M5 OT- IP IADL's Start: 04/09/24 12:59 Freq: Status: Active Protocol: Document 04/09/24 11:31 [facility] (Rec: 04/09/24 13:18 [facility] [id number]) OT-Instrumental Activities of Daily Living Home Safety Awareness Awareness of Need for Assistance at Home Good Awareness Ability to Problem Solve Emergency Able to Problem Solve Situations Medication Management Medication Management Comments Pt takes his own from that is already pre-packed. Money Management Money Management Caregiver Provides Supervision ,Caregiver Provides Assistance Meal Preparation Meal Preparation Caregiver Provides Assist Svp Group Director Svp Group Director Caregiver Provides Assist Driving Driving Caregiver Provides Assist M6 OT- IP Functional Cognition Start: 04/09/24 12:59 Freq: Status: Active Protocol: Document 04/09/24 11:31 [facility] (Rec: 04/09/24 13:18 [facility] [id number]) Cognitive Factors Limiting Selfcare Function Cognitive Ability Level of Alertness Alert Patient Orientation Name,Age,Birthday,Month,Date, Year,Day of Week,Place, Situation Attention Span Ability Capable of Focused Attention, Capable of Sustained Attention Ability to Follow Commands Able to Follow One Step Commands Memory Description Short Term Impaired Cognitive Comments Cognitive Assessment Comments Pt able to follow commands and has good insight to his needs . Pt appears to be at his baseline for cognitive needs. Pt at time repeats his stories. OT- Vision and Hearing OT- Vision Assessment Visual Acuity Glasses All The Time Occular Pursuits Impaired Horizontal Vision Assessment Comments Increased time to scan and track, pt complains of blurred vision at times. M7 OT- IP Mobility and Balance Start: 04/09/24 12:59 Freq: Status: Active Protocol: Document 04/09/24 11:31 [facility] (Rec: 04/09/24 13:18 [facility] [id number]) OT-Transfer Assessment Sit to and From Stand Sit to and from Stand Moderate Assistance,1 Person Assistance Transfers Transfer Ability Moderate Assistance,Maximum Assistance,1 Person Assistance Technique Transfer Destination Chair,Wheelchair Transfer Technique Stand Step Pivot Devices Transfer Assistive Devices Gait Belt,Front Wheeled Walker Comments Mobility Comments MODA x1 to stand with FWW. MOD /MAX X1 with FWW to help keep pt's weight forwards to able to transfer. Pt shuffles his feet and heavily leans on his heels and needing cues to lean forwards. OT- Balance Assessment Sitting Balance and Reactions Static Sitting Balance Ability Fair Dynamic Sitting Balance Ability Poor Standing Balance and Reactions Static Standing Balance Ability Poor Dynamic Standing Balance Ability Poor M8 OT- IP Objective Assessments Start: 04/09/24 12:59 Freq: Status: Active Protocol: Document 04/09/24 11:31 [facility] (Rec: 04/09/24 13:18 [facility] [id number]) OT Gross Range of Motion Upper Extremity Range of Motion Assessment Bilaterally Impaired OT Strength Upper Extremity Strength Assessment Bilaterally Impaired OT- Coordination Assessment Upper Extremity Finger to Nose Test Right UE Impaired OT Sensation Assessment Comments Summary Comments Sensation intact. M9 OT- IP Assessment and Plan Start: 04/09/24 12:59 Freq: Status: Active Protocol: Document 04/09/24 11:31 [facility] (Rec: 04/09/24 13:18 [facility] [id number]) OT Summary Assessment and Plan Potential Rehabilitation Potential Good Analytic Complexity at Evaluation Moderate Summary OT Impairments Strength,Balance,Functional Mobility,Toilet Transfers, Shower Transfers,Activity Tolerance Progress Towards Goals Progressing Toward Goals Goals Self-Feeding Goal Standby Assistance Grooming Goal Standby Assistance Toilet Transfer Goal Minimal Assistance Shower Transfer Goal Moderate Assistance Days to Meet Goals 10 Frequency of Treatment Other frequency 5x/week Treatment Plan OT Treatment Plan ADL Training,Functional Mobility,Patient/Family Education,Discharge Planning Discharge Recommendations OT Discharge Recommendations Home with 02/04 Assist Available,Home Health, Outpatient PT Other Discharge Recommendations To resume PT at his facility. Transportation Needs at Discharge Wheelchair/Cabulance
--- NOTE | 2024-04-09 14:44 | CM.DPNOTE ---
DCP Note AIR INTERCEPT CONTROLLER SUPERVISOR reviewed EMR. Per provider, can dc home today if arranged with [facility]. OT eval states he's at baseline fx with ADLs. Rec returning home. AIR INTERCEPT CONTROLLER SUPERVISOR spoke with Herlinda from [facility] ([phone]). Confirm he gets assistance with ADLs like dressing/transfers/bathing. Able to take him back today, transport arranged for 4pm. AIR INTERCEPT CONTROLLER SUPERVISOR faxed ([phone]) available dc sum, OT eval, and signed med list to [facility]. AIR INTERCEPT CONTROLLER SUPERVISOR met with pt in room. Pt was very pleasant and sweet to work with. Eager to dc home. Agreeable to 4pm transport. Deny other needs/questions. AIR INTERCEPT CONTROLLER SUPERVISOR updated RN and gave him signed med list to include in dc paperwork. P: dc home to [facility] today with previous services. Transport at 4pm. CM team will continue to follow as needed ANSELMO Christensen
== END 2024-04-09 15:55 | DRG 280 ==
LOC: ED 15:11 → AC 15:21 → ICU 16:13
PROVIDERS: Emergency Medicine; Admitting Provider Hospitalist; Emergency Provider Emergency Medicine; PCP Internal Medicine; Referring Provider Emergency Medicine; Visit Provider Hospitalist
DX: I48.92 Unspecified atrial flutter (principal); I50.21 Acute systolic (congestive) heart failure; I21.4 Non-ST elevation (NSTEMI) myocardial infarction; G23.1 Progressive supranuclear ophthalmoplegia [Steele-Richardson-Olszewski]; I25.10 Atherosclerotic heart disease of native coronary artery without angina pectoris; I11.0 Hypertensive heart disease with heart failure; E11.9 Type 2 diabetes mellitus without complications; I42.8 Other cardiomyopathies; F32.A Depression, unspecified; E78.5 Hyperlipidemia, unspecified; Z95.818 Presence of other cardiac implants and grafts; Z66 Do not resuscitate; Z79.84 Long term (current) use of oral hypoglycemic drugs; Z95.2 Presence of prosthetic heart valve; Z95.1 Presence of aortocoronary bypass graft
CPT/HCPCS: 36415; 71045; 80048; 80053; 82550; 83690; 83735; 83880; 84484; 85025; 85610; 85730; 87797; 93005; 93306; 96365; 96368; 96375; 97166; 97530; 99284; 99291; J1644; J1940

== ENCOUNTER 2024-05-20 16:13 | Emergency (ER) | payer MEDICARE, OTHER, SELFPAY ==
[2024-04-07 15:41] VITALS: BMI 27.1
[2024-05-20] VITALS (17 sets, daily range): BP systolic 114–146; BP diastolic 68–93; PULSE 95–123; RESP 15–33; TEMP 36.4; O2SAT 83–97; BMI 25.8
--- NOTE | 2024-05-20 18:29 | EKG_ITS ---
[address] [address] Test Date: 2024-05-20 Pat Name: Darin Clark Department: Room: Gender: Male Major Assembler: ROJAS : 1945 Requested By: Order Number: [id number] Reading MD: Luis Multani Measurements Intervals [place] Rate: 103 P: MA: QRS: 65 QRSD: 138 T: 31 QT: 380 QTc: 497 Interpretive Statements Atrial flutter with variable AV block Right bundle branch block Anterolateral infarct , age undetermined Electronically Signed On 05-21-2024 8:51:14 PDT by Luis Multani
--- NOTE | 2024-05-20 18:29 | DI.RAD.S_ITS ---
PROCEDURE: XR CHEST 1V INDICATIONS: dyspnea on exertion TECHNIQUE: One view of the chest was acquired. COMPARISON: [facility], CR, XR CHEST 1V, 04/07/2024, 13:50. FINDINGS: Surgical changes and devices: Median sternotomy wires are present and appear intact. Left cardiac pacemaker. Valve replacement. Lungs and pleura: Lungs are clear. No pleural effusions or pneumothorax. Mediastinum: Mediastinal contours appear normal. Heart size is normal. Bones and chest wall: No suspicious bony lesions. Overlying soft tissues appear unremarkable. IMPRESSION: Stable radiographic evaluation of the chest without acute cardiopulmonary abnormalities or focal consolidation. Dictated by: Robin Willoughby M.D. on 05/20/2024 at 20:07 Approved by: Robin Willoughby M.D. on 05/20/2024 at 20:08
--- NOTE | 2024-05-20 18:30 | PC.NURSE ---
Addendum entered by Francisco Anderson R.N. 05/20/24 18:46: Pt is unaware of what medications he takes I take a lot of different meds. [facility] packages all his medications and pt takes what is provided by pharmacy. Original Note: Pt endorses 2 months of increasing SOB with dry cough. Pt sleeps in a recliner for comfort. Denies heart palpitations, dizziness, lightheaded, nausea, chest pain. He does mention having a episode of chest pain approximately 1.5months ago. At baseline pt is wheelchair bound and can only transfer between wheelchair and recliner.
--- NOTE | 2024-05-20 18:33 | ED.SOB ---
HPI - SOB/Dyspnea General Chief Complaint: Shortness of Breath/Dyspnea Stated Complaint: SOB xweeks Time Seen by Provider: 05/20/24 17:56 Mode of arrival: EMS History of Present Illness HPI Narrative: 78-year-old male with history of atrial fibrillation status post Watchman procedure, not currently anticoagulated, TAVR, supranuclear palsy, hypertension presents by EMS from his assisted living facility for shortness of breath with exertion. Patient states that while doing physical therapy today he told his physical therapist that he felt short of breath when he was exerting himself. The physical therapist recommended he be evaluated in the emergency department. Patient can not give me a definite timeline on when his shortness of breath started. Patient last seen in the emergency department 04/07/2024 for acute kidney injury and NSTEMI. Related Data Home Medications Medication Instructions Recorded Confirmed amitriptyline 25 mg tablet 25 mg PO BID 05/20/19 04/07/24 losartan 50 mg tablet 50 mg PO BID 05/20/19 04/07/24 pantoprazole 40 mg tablet,delayed 40 mg PO QAM 05/20/19 04/07/24 release (Protonix) perphenazine 2 mg tablet 2 mg PO BEDTIME 05/20/19 04/08/24 rosuvastatin 5 mg tablet 5 mg PO BEDTIME 08/18/22 04/07/24 sennosides 8.6 mg tablet (senna) 8.6 mg PO BID 08/18/22 04/07/24 spironolactone 25 mg tablet 12.5 mg PO QAM 08/18/22 04/07/24 metformin 500 mg tablet 500 mg PO DAILY 06/19/23 04/07/24 aspirin 81 mg tablet,delayed 81 mg PO DAILY 04/07/24 04/07/24 release ezetimibe 10 mg tablet 10 mg PO DAILY 04/07/24 04/07/24 furosemide 20 mg tablet 20 mg PO DAILY 04/07/24 04/07/24 Previous Rx's Medication Instructions Recorded metoprolol succinate 50 mg 100 mg (2 x 50 mg) PO BID #60 tabs 04/09/24 tablet,extended release 24 hr digoxin 125 mcg (0.125 mg) tablet 125 mcg PO DAILY #30 tabs 05/20/24 Allergies Allergy/AdvReac Type Severity Reaction Status Date / Time rosuvastatin [ROSUVASTATIN] AdvReac Mild MYALGIAS Verified 07/25/23 14:03 Patient History Medical History Coronary artery disease Hypertension Presence of Watchman left atrial appendage closure device Chronic atrial fibrillation High cholesterol Diverticulosis Aortic valve insufficiency Depression Surgical History H/O aortic valve replacement Social History household members: none Smoking Status: Never smoker alcohol intake: current substance use type: does not use Smoking Status: Never smoker alcohol intake frequency: 0-2 drinks per day Substance Use Type: does not use Exam Initial Vital Signs Initial Vital Signs: Vital Signs Pulse Rate 102 H 05/20/24 16:23 Respiratory Rate 18 05/20/24 16:23 Blood Pressure 126/73 05/20/24 16:23 Pulse Oximetry 97 05/20/24 16:23 Oxygen Delivery Method Room Air 05/20/24 16:23 Const: Awake, alert, debilitated, frail, appears chronically unwell, nontoxic Cardiac: Tachycardia, irregularly irregular RESP: unlabored, clear bilaterally, no wheezing GI: Soft, nontender, nondistended MSK: No edema, full range of motion, pulses equal Skin: Warm, Dry, intact, no rashes Neuro: AO x3, CN II-XII grossly intact, moves all extremities Course Orders Ordered: ED Orders 05/20/24 17:45 BNP [NT-proBNP (BNP-Adult 18+)] Stat CBC Auto Diff [Complete Blood Count AUTO DIFF] Stat CMP [Comprehensive Metabolic Panel] Stat PT [Prothrombin Time INR] Stat Troponin & CK Cardiac Panel Stat 05/20/24 18:29 Chest [XR chest 1V] Stat EKG-12 Lead Stat Discontinued Medications Digoxin (Digoxin 500 Mcg/2 Ml Ampul) 500 mcg IV NOW ONE Stop: 05/20/24 20:04 Last Admin: 05/20/24 20:15 Dose: 500 mcg Documented By: AIDA Metoprolol Tartrate (Metoprolol Tartrate 5 Mg/5 Ml Inj) 5 mg IV Q5M FAIZA Stop: 05/20/24 19:26 Last Admin: 05/20/24 19:45 Dose: 5 mg Documented By: Admin: 05/20/24 19:38 Dose: 5 mg Documented By: Admin: 05/20/24 19:31 Dose: 5 mg Documented By: AIDA Vital Signs Vital signs: Vital Signs - 8 hr 05/20/24 18:23 05/20/24 18:24 05/20/24 18:24 Temperature Pulse Rate 117 H 120 H Respiratory Rate 23 33 H Blood Pressure 138/82 Pulse Oximetry 95 95 Oxygen Delivery Method 05/20/24 18:30 05/20/24 18:30 05/20/24 19:00 Temperature Pulse Rate 122 H 123 H Respiratory Rate 29 H 31 H Blood Pressure 132/74 Pulse Oximetry 95 83 L Oxygen Delivery Method Room Air 05/20/24 19:00 05/20/24 19:30 05/20/24 19:30 Temperature Pulse Rate 112 H Respiratory Rate 20 Blood Pressure 125/93 H 124/79 Pulse Oximetry 96 Oxygen Delivery Method Room Air 05/20/24 19:35 05/20/24 19:35 05/20/24 19:41 Temperature Pulse Rate 109 H Respiratory Rate 22 Blood Pressure 126/68 114/73 Pulse Oximetry 97 Oxygen Delivery Method Room Air 05/20/24 19:41 05/20/24 20:00 05/20/24 20:01 Temperature Pulse Rate 109 H 105 H 108 H Respiratory Rate 21 21 15 Blood Pressure Pulse Oximetry 96 96 97 Oxygen Delivery Method Room Air Room Air 05/20/24 20:01 05/20/24 20:15 05/20/24 20:30 Temperature Pulse Rate 112 H 104 H Respiratory Rate Blood Pressure 125/88 125/88 Pulse Oximetry Oxygen Delivery Method 05/20/24 20:31 05/20/24 20:31 05/20/24 21:00 Temperature Pulse Rate 104 H Respiratory Rate Blood Pressure 125/89 146/77 H Pulse Oximetry Oxygen Delivery Method 05/20/24 21:00 05/20/24 21:30 05/20/24 21:30 Temperature Pulse Rate 97 H 97 H Respiratory Rate 24 27 H Blood Pressure 123/74 Pulse Oximetry 96 96 Oxygen Delivery Method Room Air Room Air 05/20/24 22:00 05/20/24 22:00 05/20/24 22:36 Temperature 97.5 F L Pulse Rate 95 H Respiratory Rate 23 Blood Pressure 133/83 Pulse Oximetry 95 Oxygen Delivery Method Room Air MDM - SOB/Dyspnea Differential Diagnosis Differential diagnosis: Likely acute exacerbation of chronic obstructive airways disease, congestive heart failure and community acquired pneumonia Lab Data 05/20/24 17:45 05/20/24 17:45 Labs: Lab Results 05/20/24 Range/Units 17:45 WBC 8.6 (4.5-11.0) X10^3/uL RBC 4.79 (4.5-5.9) X10^6/uL Hgb 14.6 (13.5-17.5) g/dL Hct 42.8 (41-53) % MCV 89.4 (80-100) fL MCH 30.4 (26-34) PG MCHC 34.1 (30-36) % RDW 13.9 (11.6-14.8) % Plt Count 241 (150-400) X10^3/uL Neut % (Auto) 63.2 (50-75) % Lymph % (Auto) 21.4 L (25-40) % [place] % (Auto) 10.7 (3-14) % Eos % (Auto) 4.3 H (2-4) % Baso % (Auto) 0.4 (0-2) % Neut # (Auto) 5400 (8331-0002) /uL Lymph # (Auto) 1800 (3149-6593) /uL [place] # (Auto) 900 (0-900) /uL Eos # (Auto) 400 (0-450) /uL Baso # (Auto) 0 (0-100) /uL PT 12.5 (9.4-12.5) SECONDS INR 1.1 (0.9-1.3) Sodium 138 (137-145) mmol/L Potassium 4.4 (3.4-5.1) mmol/L Chloride 101 (98-107) mmol/L Carbon Dioxide 28 (22-32) mmol/L BUN 22 H (9-20) mg/dL Creatinine 1.08 (0.66-1.25) mg/dL Estimated GFR > 60 (>60) mL/min BUN/Creatinine Ratio 20.4 (6-22) Glucose 104 (80-110) mg/dL Calcium 9.5 (8.4-10.2) mg/dL Total Bilirubin 0.6 (0.2-1.3) mg/dL AST 44 (17-59) IU/L ALT 25 (<50) IU/L Alkaline Phosphatase 67 (38-126) U/L Total Creatine Kinase 54 L (55-170) U/L Troponin I 0.014 (0.01-0.034) ng/mL NT-Pro-B Natriuret Pep 2770 H (<450) pg/mL Total Protein 7.3 (6.3-8.2) g/dL Albumin 4.2 (3.5-5.0) g/dL Globulin 3.1 (1.7-4.1) g/dL Albumin/Globulin Ratio 1.4 (1.0-2.8) Imaging Data Chest x-ray: Radiologist's Impression: PROCEDURE: XR CHEST 1V INDICATIONS: dyspnea on exertion TECHNIQUE: One view of the chest was acquired. COMPARISON: [facility], , XR CHEST 1V, 04/07/2024, 13:50. FINDINGS: Surgical changes and devices: Median sternotomy wires are present and appear intact. Left cardiac pacemaker. Valve replacement. Lungs and pleura: Lungs are clear. No pleural effusions or pneumothorax. Mediastinum: Mediastinal contours appear normal. Heart size is normal. Bones and chest wall: No suspicious bony lesions. Overlying soft tissues appear unremarkable. IMPRESSION: Stable radiographic evaluation of the chest without acute cardiopulmonary abnormalities or focal consolidation. Dictated by: Robin Willoughby M.D. on 05/20/2024 at 20:07 Approved by: Robin Willoughby M.D. on 05/20/2024 at 20:08 ECG Data Interpretation: Atrial fibrillation at 103 beats per minute, variable AV block, right bundle-branch block, no STEMI MDM Narrative Medical decision making narrative: Dyspnea on exertion of unknown duration. Physical exam is notable for tachycardia with pulse varying between 100 and 120 beats per minute. Blood pressure stable. Patient states that while he was lying in the bed he has no symptoms, and states that he ultimately hopes he can go home soon. Laboratory work and x-ray imaging ordered. Laboratory work reviewed, WBC count 8.6, hemoglobin 14.6, platelets 241, sodium 138, potassium 4.4, creatinine 1.08, troponin 0.014, BNP 2770. Chest x-ray shows no evidence of volume overload, patient was also not clinically volume overloaded. Patient has remained tachycardic despite 3 doses of 5 mg IV metoprolol. Record review shows that patient was already on high doses of metoprolol taking 100 mg b.i.d.. Call placed to on-call Cardiology Dr. Reynolds, who recommended giving patient 0.5 mg of IV digoxin now, with subsequent starting of 0.125 mg of digoxin daily. In addition he recommends increasing patient's metoprolol to 150 mg p.o. b.i.d.. Patient received IV digoxin with subsequent improvement to heart rate less than 100 beats per minute. Patient counseled on medication changes as well as the importance of cardiology follow up. Patient transferred via BLS back to his living facility. Discharge Plan Departure Patient Disposition: Home Clinical Impression: Dyspnea on exertion, Atrial fibrillation with RVR Instructions: DI for Atrial Fibrillation Activity Restrictions/Additional Instructions: You were seen today for shortness of breath with exertion. Your heart rate was elevated here today. I discussed your case with Cardiology, they recommend: * increasing your metoprolol to 150 mg twice daily * adding a new medication called digoxin, 0.125 mg by mouth daily. Call [facility] cardiology for follow up appointment tomorrow Prescriptions: New digoxin 125 mcg (0.125 mg) tablet 125 mcg PO DAILY Qty: 30 0RF No Action metformin 500 mg tablet 500 mg PO DAILY amitriptyline 25 mg tablet 25 mg PO BID perphenazine 2 mg tablet 2 mg PO BEDTIME losartan 50 mg Tablet 50 mg PO BID pantoprazole [Protonix] 40 mg tablet,delayed release (DR/EC) 40 mg PO QAM sennosides [senna] 8.6 mg Tablet 8.6 mg PO BID spironolactone 25 mg tablet 12.5 mg PO QAM rosuvastatin 5 mg tablet 5 mg PO BEDTIME aspirin 81 mg Tablet,Delayed Release (Dr/Ec) 81 mg PO DAILY furosemide 20 mg tablet 20 mg PO DAILY ezetimibe 10 mg tablet 10 mg PO DAILY metoprolol succinate 50 mg Tablet Extended Release 24 Hr 100 mg PO BID Qty: 60 2RF Referrals: Nimo Castelan MD [Primary Care Provider] - Stand Alone Forms: Patient Portal/API
[2024-05-20 18:53] LABS: Add Manual Diff / Slide Review NO; Basophils Absolute Auto 0 /uL (0-100); Basophils Percent Auto 0.4 % (0-2); Eosinophils Absolute Auto 400 /uL (0-450); Eosinophils Percent Auto 4.3 % (2-4); Hematocrit 42.8 % (41-53); Hemoglobin 14.6 g/dL (13.5-17.5); Lymphocytes Absolute Auto 1800 /uL (1100-4500); Lymphocytes Percent Auto 21.4 % (25-40); Mean Corpuscular HGB Conc 34.1 % (30-36); Mean Corpuscular Hemoglobin 30.4 PG (26-34); Mean Corpuscular Volume 89.4 fL (80-100); Monocytes Absolute Auto 900 /uL (0-900); Monocytes Percent Auto 10.7 % (3-14); Neutrophils Absolute Auto 5400 /uL (1500-7000); Neutrophils Percent Auto 63.2 % (50-75); Platelet Count 241 X10^3/uL (150-400); Red Blood Cell Count 4.79 X10^6/uL (4.5-5.9); Red Cell Distribution Width 13.9 % (11.6-14.8); White Blood Cell Count 8.6 X10^3/uL (4.5-11.0)
[2024-05-20 18:57] LABS: INR 1.1 (0.9-1.3); Prothrombin Time 12.5 SECONDS (9.4-12.5)
[2024-05-20 19:02] LABS: Alanine Aminotransferase 25 IU/L (<50); Albumin 4.2 g/dL (3.5-5.0); Albumin Globulin Ratio 1.4 (1.0-2.8); Alkaline Phosphatase 67 U/L (38-126); Aspartate Aminotransferase 44 IU/L (17-59); BUN Creatinine Ratio 20.4 (6-22); Bilirubin Total 0.6 mg/dL (0.2-1.3); Blood Urea Nitrogen 22 mg/dL (9-20); Calcium 9.5 mg/dL (8.4-10.2); Carbon Dioxide 28 mmol/L (22-32); Chloride 101 mmol/L (98-107); Estimated Glomerular Filt Rate > 60 mL/min (>60); Globulin 3.1 g/dL (1.7-4.1); Glucose 104 mg/dL (80-110); HEMOLYSIS 26 (0-50); Potassium 4.4 mmol/L (3.4-5.1); Sodium 138 mmol/L (137-145); Total Protein 7.3 g/dL (6.3-8.2)
[2024-05-20 19:16] LABS: Creatine Kinase 54 U/L (55-170)
[2024-05-20 19:29] LABS: NT-proBNP (BNP-Adult 18+) 2770 pg/mL (<450); Troponin I 0.014 ng/mL (0.01-0.034)
[2024-05-20] MEDS: METOPROLOL TARTRATE 5 MG/5 ML INJ IV ×3 (19:31→19:45)
[2024-05-20] MEDS: DIGOXIN 500 MCG/2 ML AMPUL IV (20:15)
== END 2024-05-20 22:40 | disposition home or self-care (01) ==
PROVIDERS: Emergency Provider Emergency Medicine; PCP Internal Medicine
DX: I48.20 Chronic atrial fibrillation, unspecified (principal); R06.00 Dyspnea, unspecified; I10 Essential (primary) hypertension; I44.0 Atrioventricular block, first degree
CPT/HCPCS: 36415; 71045; 80053; 82550; 83880; 84484; 85025; 85610; 93005; 96374; 96375; 99284; J1160

== ENCOUNTER → 2024-06-19 14:04 | Outpatient (CLI) | payer MEDICARE, OTHER, SELFPAY ==
[2024-04-07 15:41] VITALS: BMI 27.1
--- NOTE | 2024-06-19 14:05 | DI.ECHO.S_ITS ---
[facility] +---------+ [facility] : : [address] : : [place] : : [id number] : : Phone: [phone] Echocardiogram Report + + :Name: MARY NELSON Study Date: 06/19/2024 Height: 70 in : :Hospital ReadingLocation: Weight: 183 lb : : Gender: Male BSA: 2.0 m2 : :: 1945 Age: 79 yrs BP: 129/70 mmHg: :Reason For Study: CHRONIC SYSTOLIC CONGESTIVE HEART FAILURE, : :EF AND WALL MOTION : :Ordering Physician: GÉNESIS : :[place] Performed By: Elly Gordillo : :Referring: [place] CAPPS : + + Interpretation Summary 1. The left ventricular contractility is moderately compromised. Estimate ejection fraction is approximately 35 to 40%. There is dyskinesis of the mid to distal anterior segment with akinesis of the apical segment. Unable to comment on diastolic function. 2. The right ventricular contractility appears normal. 3. Mild tricuspid regurgitation noted with estimated pulmonary systolic artery pressure of 29 to 34 mmHg. 4. There is a bioprosthetic valve noted in the aortic position. Unable to comment on function due to lack of Doppler interrogation. 5. No intracardiac masses nor thrombi. Hyperechogenic linear density noted in right atrium and right ventricle consistent with pacemaker wire. 6. No hemodynamically significant pericardial effusion. Conclusion: When compared with previous echocardiogram, there is slight improvement in the left ventricular systolic function. Procedure: Images were not obtained from all of the standard acoustic windows due to the limited scope of the study. A contrast injection of Definity was performed to improve assessment of LV function. The study quality was technically adequate. Comparison is made with the echocardiogram of 04/08/2024. The patient was in atrial flutter with heart rates between 75-97 bpm during the exam. Left Ventricle: The left ventricle is normal in size and wall thickness. The ejection fraction is estimated to be 35-40%. Diastolic function could not be accurately assessed due to atrial fibrillation. Right Ventricle: There is a pacemaker lead in the right ventricle. Atria: There is a catheter/pacemaker lead seen in the right atrium. Mitral Valve: There is trace mitral regurgitation. Aortic Valve: There is a bioprosthetic aortic valve. Tricuspid Valve: There is mild to moderate tricuspid regurgitation. Pericardium/ Pleura There is no pericardial effusion. There is no pleural effusion. MMode/2D Measurements & Calculations LVIDd: 4.6 cm LVIDs: 3.7 cm FS: 20.9 % IVSd: 0.92 cm LVPWd: 1.1 cm LV gar. diameter/BSA (cm/m^2): 2.3 LV sys. diameter/BSA (cm/m^2): 1.8 Doppler Measurements & Calculations Med Peak E' Rudolph: 6.9 cm/sec TR max rudolph: 267.6 cm/sec Lat Peak E' Rudolph: 11.4 cm/sec TR max P.6 mmHg Reading Physician:
== END ==
PROVIDERS: PCP Internal Medicine; Referring Provider Internal Medicine; Visit Provider Internal Medicine
DX: I07.0 Rheumatic tricuspid stenosis (principal); I50.23 Acute on chronic systolic (congestive) heart failure; Z95.2 Presence of prosthetic heart valve
CPT/HCPCS: 93307; Q9957

== ENCOUNTER 2024-09-07 10:05 | Observation (INO) | payer MEDICARE, OTHER, SELFPAY ==
[2024-04-07 15:41] VITALS: BMI 27.1
[2024-09-07] VITALS (16 sets, daily range): BP systolic 105–146; BP diastolic 62–79; PULSE 54–106; RESP 15–30; TEMP 36.7–37; O2SAT 94–98; BMI 26.8
--- NOTE | 2024-09-07 10:18 | DI.RAD.S_ITS ---
PROCEDURE: XR CHEST 1V INDICATIONS: Shortness of breath TECHNIQUE: One view of the chest was acquired. COMPARISON: [facility], CR, XR CHEST 1V, 05/20/2024, 18:51. [facility], CR, XR CHEST 1V, 04/07/2024, 13:50. FINDINGS: Surgical changes and devices: Left chest wall pulse generator with dual-chamber electrode leads. Sternotomy wires. Aortic valve replacement. Lungs and pleura: No dense consolidation or pleural effusion. Mild left lung base opacity could represent atelectasis. Mediastinum: Heart size is at the upper limit of normal, unchanged Bones and chest wall: There are degenerative findings. Probable old injury of the right acromioclavicular region. IMPRESSION: No dense consolidation or pleural effusion. Possible mild left lung base opacity which may be atelectasis. Limited single view study with low lung volumes. Dictated by: Kana Sevilla M.D. on 09/07/2024 at 9:37 Approved by: Kana Sevilla M.D. on 09/07/2024 at 9:38
[2024-09-07 10:31] LABS: Add Manual Diff / Slide Review NO; Basophils Absolute Auto 0 /uL (0-100); Basophils Percent Auto 0.3 % (0-2); Eosinophils Absolute Auto 300 /uL (0-450); Eosinophils Percent Auto 3.8 % (2-4); Hematocrit 44.1 % (41-53); Hemoglobin 14.8 g/dL (13.5-17.5); Lymphocytes Absolute Auto 1800 /uL (1100-4500); Lymphocytes Percent Auto 22.4 % (25-40); Mean Corpuscular HGB Conc 33.5 % (30-36); Mean Corpuscular Hemoglobin 29.9 PG (26-34); Mean Corpuscular Volume 89.2 fL (80-100); Monocytes Absolute Auto 1700 /uL (0-900); Monocytes Percent Auto 20.2 % (3-14); Neutrophils Absolute Auto 4400 /uL (1500-7000); Neutrophils Percent Auto 53.3 % (50-75); Platelet Count 221 X10^3/uL (150-400); Red Blood Cell Count 4.94 X10^6/uL (4.5-5.9); Red Cell Distribution Width 14.5 % (11.6-14.8); White Blood Cell Count 8.2 X10^3/uL (4.5-11.0)
[2024-09-07 10:32] LABS: INR 1.1 (0.9-1.3); Prothrombin Time 12.4 SECONDS (9.4-12.5)
[2024-09-07 10:36] LABS: Alanine Aminotransferase 27 IU/L (<50); Albumin 4.2 g/dL (3.5-5.0); Albumin Globulin Ratio 1.3 (1.0-2.8); Alkaline Phosphatase 61 U/L (38-126); Aspartate Aminotransferase 31 IU/L (17-59); BUN Creatinine Ratio 18.6 (6-22); Bilirubin Total 0.6 mg/dL (0.2-1.3); Blood Urea Nitrogen 26 mg/dL (9-20); Calcium 9.5 mg/dL (8.4-10.2); Carbon Dioxide 31 mmol/L (22-32); Chloride 101 mmol/L (98-107); Estimated Glomerular Filt Rate 50 mL/min (>60); Globulin 3.2 g/dL (1.7-4.1); Glucose 105 mg/dL (80-110); HEMOLYSIS < 15 (0-50); Lactate (Lactic Acid) 2.5 mmol/L (0.7-2.1); Sodium 140 mmol/L (137-145); Total Protein 7.4 g/dL (6.3-8.2)
[2024-09-07 10:48] LABS: NT-proBNP (BNP-Adult 18+) 1150 pg/mL (<450); Troponin I 0.014 ng/mL (0.01-0.034)
[2024-09-07 10:57] LABS: Influenza A - CEPHEID Flu A NEGATIVE (NEGATIVE); Influenza B - CEPHEID Flu B NEGATIVE (NEGATIVE); Respiratory Syncytial Virus POSITIVE (Negative)
[2024-09-07 11:08] LABS: COVID-19 CEPHEID 4-PLEX PCR Negative (Negative)
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
[2024-09-07 12:04] LABS: Reflexed Lactate in 2 Hours Y
[2024-09-07] MEDS: FUROSEMIDE 40 MG/4 ML VIAL IV (12:25)
[2024-09-07] MEDS: cefTRIAXone 1,000 MG in SODIUM CHLORIDE 0.9% 100 ML 200 MG IV (12:26)
--- NOTE | 2024-09-07 12:32 | EKG_ITS ---
[address] [address] Test Date: 2024-09-07 Pat Name: Darin Clark Department: Room: Gender: Male Manager Channel: ALEXANDRU : 1945 Requested By: Order Number: [id number] Reading MD: Luis Multani Measurements Intervals [place] Rate: 81 P: 177 SC: QRS: 33 QRSD: 110 T: 21 QT: 370 QTc: 429 Interpretive Statements Atrial flutter with variable AV block Low voltage QRS Incomplete right bundle branch block Electronically Signed On 09-11-2024 9:36:38 PST by Luis Multani
[2024-09-07 12:43] LABS: Lactate 2HR (Lactic Acid Rflx) 1.1 mmol/L (0.7-2.1)
[2024-09-07] MEDS: AZITHROMYCIN 500 MG in DEXTROSE 5% IN WATER 250 ML 250 MG IV (12:53)
[2024-09-07 13:34] LABS: Appearance Urine UA CLEAR; Bilirubin Urine UA NEGATIVE (NEGATIVE); Color Urine UA YELLOW; Glucose Urine UA NEGATIVE (Negative); Ketones Urine UA NEGATIVE (NEGATIVE); Leukocyte Esterase Urine UA NEGATIVE (NEGATIVE); Nitrite Urine UA NEGATIVE (Negative); Occult Blood Urine UA NEGATIVE (Negative); Protein Urine UA NEGATIVE (Negative); Specific Gravity Urine UA 1.015 (1.000-1.035); Urobilinogen Urine UA 0.2 E.U./dL (0.2); pH Urine UA 5.5 (4.5-8.0)
[2024-09-07 13:41] LABS: Bacteria Urine None Seen; RBC Urine 0-1/HPF (0-5/HPF); Squamous Epithelial Cell Urine 0-1 /HPF (0-5/HPF); Urine Volume 10mL (spun); WBC Urine None Seen (0-5/HPF)
[2024-09-07 13:42] LABS: Culture Indicated Urine Cult Not Indicated
--- NOTE | 2024-09-07 13:53 | P.HP_ITS ---
History of Present Illness History of Present Illness Date Patient Seen: 09/07/24 Time Patient Seen: 14:05 Chief complaint: SOB Narrative: 79-year-old man under the primary care of Dr. Nimo magallanes residing at [facility] with history of aortic stenosis status post TAVR, coronary disease, and atrial fibrillation status post Watchman device presents with cough for 4 days. This developed after Brendan and he notes he became very cold and wet on his way out to the car after the dinner, has since developed fevers to 100? 2 days ago, and course coughing and weakness. No chest pain, shortness for breath, abdominal pain, nausea, vomiting, diarrhea, lightheadedness or syncope. He had pain in the right shoulder blade 2 days ago that resolved with Tylenol and has not recurred. He has had flu and COVID vaccines but not RSV vaccination. He tested positive for RSV. [facility] Medical History Aortic valve insufficiency Chronic atrial fibrillation Coronary artery disease Depression Diverticulosis High cholesterol Hypertension Presence of Watchman left atrial appendage closure device Surgical History H/O aortic valve replacement Social History household members: none Smoking Status: Never smoker alcohol intake: current substance use type: does not use Meds Home Medications and Allergies Home Medications Medication Instructions Recorded Confirmed Type amitriptyline 25 mg tablet 25 mg PO BID 05/20/19 04/07/24 History losartan 50 mg tablet 50 mg PO BID 05/20/19 04/07/24 History pantoprazole 40 mg tablet,delayed 40 mg PO QAM 05/20/19 04/07/24 History release (Protonix) perphenazine 2 mg tablet 2 mg PO BEDTIME 05/20/19 04/08/24 History rosuvastatin 5 mg tablet 5 mg PO BEDTIME 08/18/22 04/07/24 History sennosides 8.6 mg tablet (senna) 8.6 mg PO BID 08/18/22 04/07/24 History spironolactone 25 mg tablet 12.5 mg PO QAM 08/18/22 04/07/24 History aspirin 81 mg tablet,delayed 81 mg PO DAILY 04/07/24 04/07/24 History release ezetimibe 10 mg tablet 10 mg PO DAILY 04/07/24 04/07/24 History furosemide 20 mg tablet 20 mg PO DAILY 04/07/24 04/07/24 History digoxin 125 mcg (0.125 mg) tablet 125 mcg PO DAILY #30 tabs 05/20/24 Rx escitalopram oxalate 10 mg tablet mg PO 07/12/24 07/12/24 History metformin 500 mg tablet,extended 500 mg PO BID 07/12/24 07/12/24 History release 24 hr metoprolol succinate 100 mg 100 mg PO BID 07/12/24 07/12/24 History tablet,extended release 24 hr trazodone 50 mg tablet mg PO 07/12/24 07/12/24 History Allergies Allergy/AdvReac Type Severity Reaction Status Date / Time rosuvastatin [ROSUVASTATIN] AdvReac Mild MYALGIAS Verified 07/25/23 14:03 Review of Systems Review of Systems ROS: Yes All systems reviewed with the patient and are negative except as otherwise documented Exam Vital Signs (past 8 hours): - 09/07/24 10:10 09/07/24 10:34 09/07/24 10:35 Temperature 98.0 F Pulse Rate 76 88 Respiratory Rate 20 Blood Pressure 146/71 H 142/66 H Pulse Oximetry 98 95 Oxygen Delivery Method Room Air Oxygen Flow Rate 09/07/24 10:35 09/07/24 11:00 09/07/24 11:00 Temperature Pulse Rate 79 76 Respiratory Rate 15 Blood Pressure 117/69 Pulse Oximetry 95 96 Oxygen Delivery Method Oxygen Flow Rate 09/07/24 11:30 09/07/24 11:30 09/07/24 12:00 Temperature Pulse Rate 75 75 Respiratory Rate 30 H 18 Blood Pressure 120/64 Pulse Oximetry 95 95 Oxygen Delivery Method Oxygen Flow Rate 09/07/24 12:00 09/07/24 12:30 09/07/24 12:30 Temperature Pulse Rate 76 Respiratory Rate 22 Blood Pressure 122/64 121/65 Pulse Oximetry 96 Oxygen Delivery Method Oxygen Flow Rate 09/07/24 13:00 09/07/24 13:00 Temperature Pulse Rate 76 Respiratory Rate 21 Blood Pressure 135/72 Pulse Oximetry 95 Oxygen Delivery Method Nasal Cannula Oxygen Flow Rate 2 Oxygen Delivery Method Nasal Cannula Oxygen Flow Rate 2 Narrative Exam Narrative: GENERAL: This is a well-nourished, well-developed patient, in no apparent distress, appears fatigued, intermittent coarse coughing. HEAD: Atraumatic. Normocephalic. No temporal or scalp tenderness. EYES: Pupils equal round and reactive. Extraocular motions intact. No scleral icterus. No injection or drainage. ENT: Mucous membranes pink and moist. NECK: Trachea midline. No JVD, bruits or lymphadenopathy. Supple, nontender, no meningeal signs. CARDIOVASCULAR: Regular rate and rhythm without murmurs, gallops, or rubs. RESPIRATORY: Scattered bilateral rhonchi, no wheezing or rales. GASTROINTESTINAL: Abdomen soft, non-tender, nondistended. EXTREMITIES: No clubbing, cyanosis, or edema. NEUROLOGIC: Alert, oriented, speech fluent, full upper and lower motor strength, no focal deficits evident. DERMATOLOGIC: No rashes or skin lesions. Objective ECG Impression: Atrial flutter with variable AV block at 81 beats per minute Low voltage QRS Incomplete right bundle branch block Imaging Chest x-ray: Radiologist's impression: No dense consolidation or pleural effusion. Possible mild left lung base opacity which may be atelectasis. Limited single view study with low lung volumes. Echocardiogram 04/08/2024:: Radiologist's impression: 1. The left ventricular contractility is moderately compromised. Estimated ejection fraction is 30 to 35%. There is akinesis of the apical segment. No LVH. Unable to comment on diastolic function. 2. The right ventricular contractility is normal. 3. There is mild right atrial enlargement. All other cardiac chambers appear to be of normal size. 4. Mild to moderate mitral regurgitation. There is also a bioprosthetic valve noted in the aortic position with appropriate function and no significant insufficiency. 5. Moderate tricuspid regurgitation with estimated pulmonary systolic artery pressure of 30 mmHg. 6. No obvious intracardiac shunts. 7. There appears to be a hyperechogenic linear density in the right atrium in limited views. Cannot exclude right atrial catheter versus pacemaker lead. 8. No hemodynamically significant pericardial effusion. Conclusion: Moderately depressed left ventricular systolic function with apical akinesis. 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 Labs 09/07/24 09:50 09/07/24 09:50 Labs: Laboratory Results - last 24 hr 09/07/24 09/07/24 09/07/24 09:50 10:09 12:20 WBC 8.2 RBC 4.94 Hgb 14.8 Hct 44.1 MCV 89.2 MCH 29.9 MCHC 33.5 RDW 14.5 Plt Count 221 Neut % (Auto) 53.3 Lymph % (Auto) 22.4 L [place] % (Auto) 20.2 H Eos % (Auto) 3.8 Baso % (Auto) 0.3 Neut # (Auto) 4400 Lymph # (Auto) 1800 [place] # (Auto) 1700 H Eos # (Auto) 300 Baso # (Auto) 0 PT 12.4 INR 1.1 Sodium 140 Potassium 4.0 Chloride 101 Carbon Dioxide 31 BUN 26 H Creatinine 1.40 H Estimated GFR 50 L BUN/Creatinine Ratio 18.6 Glucose 105 Lactate 2.5 H 1.1 Calcium 9.5 Total Bilirubin 0.6 AST 31 ALT 27 Alkaline Phosphatase 61 Troponin I 0.014 NT-Pro-B Natriuret Pep 1150 H Total Protein 7.4 Albumin 4.2 Globulin 3.2 Albumin/Globulin Ratio 1.3 Urine Color Urine Appearance Urine pH Ur Specific [place] Urine Protein Urine Glucose (UA) Urine Ketones Urine Occult Blood Urine Nitrate Urine Bilirubin Urine Urobilinogen Ur Leukocyte Esterase Urine RBC Urine WBC Ur Squamous Epith Cells Urine Bacteria Ur Culture Indicated? Vol Urine Centrifuged SARS-CoV-2 (PCR) Negative Influenza A (RT-PCR) Flu a negative Influenza B (RT-PCR) Flu b negative RSV (PCR) Positive A 09/07/24 13:20 WBC RBC Hgb Hct MCV MCH MCHC RDW Plt Count Neut % (Auto) Lymph % (Auto) [place] % (Auto) Eos % (Auto) Baso % (Auto) Neut # (Auto) Lymph # (Auto) [place] # (Auto) Eos # (Auto) Baso # (Auto) PT INR Sodium Potassium Chloride Carbon Dioxide BUN Creatinine Estimated GFR BUN/Creatinine Ratio Glucose Lactate Calcium Total Bilirubin AST ALT Alkaline Phosphatase Troponin I NT-Pro-B Natriuret Pep Total Protein Albumin Globulin Albumin/Globulin Ratio Urine Color Yellow Urine Appearance Clear Urine pH 5.5 Ur Specific [place] 1.015 Urine Protein Negative Urine Glucose (UA) Negative Urine Ketones Negative Urine Occult Blood Negative Urine Nitrate Negative Urine Bilirubin Negative Urine Urobilinogen 0.2 Ur Leukocyte Esterase Negative Urine RBC 0-1/hpf Urine WBC None seen Ur Squamous Epith Cells 0-1 /hpf Urine Bacteria None seen Ur Culture Indicated? Cult not indicated Vol Urine Centrifuged 10ml (spun) SARS-CoV-2 (PCR) Influenza A (RT-PCR) Influenza B (RT-PCR) RSV (PCR) Assessment & Plan Assessment & Plan narrative: 1. RSV pneumonia. Clinically stable without hypoxemia. 2. Transient elevated lactate, resolved following hydration in the emergency department. No evidence of sepsis. 3. Generalized weakness due to 1. 4. Chronic systolic congestive heart failure. Stable. 5. Atrial fibrillation, status post Watchman device. 6. Aortic stenosis status post TAVR. 7. Coronary artery disease. Stable. 8. Hypertension. Continue routine medication. 9. Hyperlipidemia. Continue statin therapy. 10. DVT prophylaxis Lovenox. 11. Code status: Do not resuscitate. Patient states he has advance directives and has a POLST form enclosed in the chart stating this wish. Plan: -Admit to observation -continue routine home medications -possible discharge home tomorrow if doing well Quality VTE Deep Vein Thrombosis/Pulmonary Embolism Present on Admission: No IH PROFEE Charge Codes Initial inpatient/observation care: 27983
[2024-09-07] MEDS: ENOXAPARIN 40 MG/0.4 ML SYRINGE SUBCUT (15:52)
[2024-09-07] MEDS: METOPROLOL ER 50 MG TABLET 100 MG PO (20:21)
[2024-09-07] MEDS: METFORMIN XR 500 MG TABLET PO (20:21)
[2024-09-07] MEDS: LOSARTAN 50 MG TABLET PO (20:22)
[2024-09-07] MEDS: ATORVASTATIN 20 MG TABLET 10 MG PO (20:22)
[2024-09-07] MEDS: TRAZODONE 50 MG TABLET PO (20:22)
[2024-09-07] MEDS: SENNOSIDES 8.6 MG TABLET PO (20:22)
[2024-09-07] MEDS: AMITRIPTYLINE 25 MG TABLET PO (20:26)
[2024-09-07] MEDS: ACETAMINOPHEN 325 MG TABLET 650 MG PO (23:06)
[2024-09-08] VITALS (9 sets, daily range): BP systolic 94–125; BP diastolic 50–90; PULSE 70–92; RESP 16–18; TEMP 36–36.7; O2SAT 93–95
[2024-09-08] MEDS: PANTOPRAZOLE DR 40 MG TABLET PO (06:00)
[2024-09-08] MEDS: AMITRIPTYLINE 25 MG TABLET PO (09:55)
[2024-09-08] MEDS: ENOXAPARIN 40 MG/0.4 ML SYRINGE SUBCUT (09:55)
[2024-09-08] MEDS: METOPROLOL ER 50 MG TABLET 100 MG PO (09:55)
[2024-09-08] MEDS: EZETIMIBE 10 MG TABLET PO (09:56)
[2024-09-08] MEDS: METFORMIN XR 500 MG TABLET PO (09:56)
[2024-09-08] MEDS: SENNOSIDES 8.6 MG TABLET PO (09:56)
[2024-09-08] MEDS: DIGOXIN 0.125 MG TABLET PO (09:56)
[2024-09-08] MEDS: ESCITALOPRAM 10 MG TABLET PO (09:56)
[2024-09-08] MEDS: ASPIRIN EC 81 MG TABLET PO (09:56)
--- NOTE | 2024-09-08 12:46 | PM.DS.1 ---
History of Present Illness History of Present Illness Date Patient Seen: 09/08/24 Time Patient Seen: 12:47 Chief complaint: SOB Narrative: Per admitting provider, 79-year-old man under the primary care of Dr. Nimo castelan residing at [facility] with history of aortic stenosis status post TAVR, coronary disease, and atrial fibrillation status post Watchman device presents with cough for 4 days. This developed after Brendan and he notes he became very cold and wet on his way out to the car after the dinner, has since developed fevers to 100? 2 days ago, and course coughing and weakness. No chest pain, shortness for breath, abdominal pain, nausea, vomiting, diarrhea, lightheadedness or syncope. He had pain in the right shoulder blade 2 days ago that resolved with Tylenol and has not recurred. He has had flu and COVID vaccines but not RSV vaccination. He tested positive for RSV. Discharge Providers Provider Date of admission: 09/07/24 12:48 Discharge Date: 09/08/24 Primary care physician: Nimo Castelan MD Discharge provider: Alvaro Benson DO Summary Hospital Course Discharge Diagnosis: 1. RSV pneumonia. Clinically stable without hypoxemia. 2. Transient elevated lactate, resolved following hydration in the emergency department. No evidence of sepsis. 3. Generalized weakness due to 1. 4. Chronic systolic congestive heart failure. Stable. 5. Atrial fibrillation, status post Watchman device. 6. Aortic stenosis status post TAVR. 7. Coronary artery disease. Stable. 8. Hypertension. Continue routine medication. 9. Hyperlipidemia. Continue statin therapy. Hospital Course: This is an 79 year old male with PMH of CHFrEF, chronic afib, aortic stenosis s/p TAVR, CAD, HTN, HLD who was admitted due to weakness from RSV infection. He felt improved the following morning after admission and was hemodynamically stable without hypoxia. He was discharged home. He is wheelchair bound at baseline, and patient felt well enough to discharge home. Treatment was discussed but primarily focuses on supportive care medications for cough. Time Spent with Patient Time spent: Greater than 30 minutes Exam Vital Signs (past 8 hours): - 09/08/24 08:00 09/08/24 09:55 09/08/24 09:56 Temperature 98.1 F Pulse Rate 88 88 Respiratory Rate 18 Blood Pressure 119/90 119/90 119/90 Pulse Oximetry 95 Oxygen Flow Rate 0 Oxygen Delivery Method Room Air Oxygen Flow Rate 0 Narrative Exam Narrative: GENERAL: This is a well-nourished, well-developed patient, in no apparent distress, appears fatigued, intermittent coarse coughing. HEAD: Atraumatic. Normocephalic. No temporal or scalp tenderness. EYES: Pupils equal round and reactive. Extraocular motions intact. No scleral icterus. No injection or drainage. ENT: Mucous membranes pink and moist. NECK: Trachea midline. No JVD, bruits or lymphadenopathy. Supple, nontender, no meningeal signs. CARDIOVASCULAR: Regular rate and rhythm without murmurs, gallops, or rubs. RESPIRATORY: Scattered bilateral rhonchi, no wheezing or rales. GASTROINTESTINAL: Abdomen soft, non-tender, nondistended. EXTREMITIES: No clubbing, cyanosis, or edema. NEUROLOGIC: Alert, oriented, speech fluent, full upper and lower motor strength, no focal deficits evident. DERMATOLOGIC: No rashes or skin lesions. Objective Labs 09/07/24 09:50 09/07/24 09:50 Labs: Laboratory Results - last 24 hr 09/07/24 13:20 Urine Color Yellow Urine Appearance Clear Urine pH 5.5 Ur Specific [place] 1.015 Urine Protein Negative Urine Glucose (UA) Negative Urine Ketones Negative Urine Occult Blood Negative Urine Nitrate Negative Urine Bilirubin Negative Urine Urobilinogen 0.2 Ur Leukocyte Esterase Negative Urine RBC 0-1/hpf Urine WBC None seen Ur Squamous Epith Cells 0-1 /hpf Urine Bacteria None seen Ur Culture Indicated? Cult not indicated Vol Urine Centrifuged 10ml (spun) COUNTS INCLUDE 234 BEDS AT [facility] Medical History Aortic valve insufficiency Chronic atrial fibrillation Coronary artery disease Depression Diverticulosis High cholesterol Hypertension Presence of Watchman left atrial appendage closure device Surgical History H/O aortic valve replacement Social History household members: none Smoking Status: Never smoker alcohol intake: current substance use type: does not use Discharge Plan Discharge Plan Patient Disposition: Home Provider Discharge Comment: Patient was admitted to the hospital for observation with RSV. Improved symptoms and hemodynamically stable without low oxygen. Stable for discharge home. Recommend watching BP at home and restarting home medications slowly. Recommend checking BP daily. If SBP is >140 okay to resume losartan 50 mg BID. If BP is still high or developing fluid retention okay to resume furosemide and aldactone after this over the coming days. Discharge orders & Medications Prescriptions: Continued metoprolol succinate 100 mg tablet extended release 24 hr 100 mg PO BID metformin 500 mg tablet extended release 24 hr 500 mg PO BID amitriptyline 25 mg tablet 25 mg PO BID perphenazine 2 mg tablet 2 mg PO BEDTIME pantoprazole [Protonix] 40 mg tablet,delayed release (DR/EC) 40 mg PO QAM sennosides [senna] 8.6 mg Tablet 8.6 mg PO BID rosuvastatin 5 mg tablet 5 mg PO BEDTIME digoxin 125 mcg (0.125 mg) tablet 125 mcg PO DAILY Qty: 30 0RF aspirin 81 mg Tablet,Delayed Release (Dr/Ec) 81 mg PO DAILY ezetimibe 10 mg tablet 10 mg PO DAILY Discontinued losartan 50 mg Tablet 50 mg PO BID spironolactone 25 mg tablet 12.5 mg PO QAM furosemide 20 mg tablet 40 mg PO DAILY Follow up/Referrals: Nimo Castelan MD [Primary Care Provider] - Diet/Activity/Treatments Diet: Diet as Tolerated and Low-sodium Activity: No restrictions. Visit Report/Discharge Packet Stand Alone Forms: Patient Portal/API, Stroke Signs & Symptoms Discharge Data Primary Care Provider: Nimo Castelan Attending Provider: Anoop Machado V Admit Date/Time: 09/07/24 12:48 Quality VTE Deep Vein Thrombosis/Pulmonary Embolism Present on Admission: No
--- NOTE | 2024-09-08 13:41 | CM.DANOTE ---
DCP Assessment Note Pt is a 79yo M here with RSV pneumonia. Uses wc at baseline. PMH of parkinson's and afib. PCP Helen Young Payer Medicare and Aman BRIONES reviewed EMR. Per chart review, last admission was March 2024. Pt lives at [facility] on the assisted side. Gets assistance with ADLs like meal prep/dressing/transfers/bathing. Gets OP PT. Per provider in morning rounds, cleared to tn back to [facility] today. ASSOCIATE GENETICS PROFESSOR spoke with Herlinda from [facility]. confirmed pt's level of care has not changed at this time. Herlinda asked for signed med list/dc summary at tn. CC Tierra kindly agreed to fax med list/dc summary to [facility] when available. ASSOCIATE GENETICS PROFESSOR met with pt in room. Pt A/Ox4 and chatty. pt confirms eager to return home. Pt reports having a CG PP (Jessica [phone]) that helps him at [facility] as well. He reports Jessica can pick him and take him home. ASSOCIATE GENETICS PROFESSOR answered medical questions to best of ability, directed him to nursing staff for further med questions. ASSOCIATE GENETICS PROFESSOR updated RN. P: home today to [facility] with Jessica to transport. CM team will continue to follow as needed ANSELMO Christensen Discharge Planning/Care Management CM Discharge Assessment Start: 09/08/24 13:35 Freq: Status: Active Protocol: Document 09/08/24 13:35 (Rec: 09/08/24 13:38 SL [id number]) Discharge Planning Assessment Assigned Regional Sales Executive ANSELMO Chatman Advance Directives? Yes Advance Directives on File Yes History Provided By Patient,Medical Record Prior Living Arrangements Assisted Living Household Members none Type of transporation used prior to Relies on Others admit Facility Name Admitted From: [facility] Independent with ADL's No Is patient alert and oriented? Yes Needs Assistance With Bathing,Meal Prep,Managing Medications,Home Chores / Shopping Community Services used prior to Physical Therapy admission: Comment OP PT at [facility] DME Already Rented / Owned Wheelchair Comment No longer can use his FWW, mostly w/c for mobility Barriers to Discharge No Discharge Plan Home Transportation Arrangement CG to transport Referrals Initiated None needed Review Status In Process Please Provide Date Initial DC 09/08/24 Assessment Was Performed Next Review Type Continued Stay Review
--- NOTE | 2024-09-08 14:42 | PC.NURSE ---
Discharge Note Discharged to [facility] with caregiver Jessica at 1400 via own wheelchair. Escorted to hospital exit by staff member. Discharge instructions reviewed with pt and caregiver including RSV and medication changes. All questions answered. All belongings with pt including glasses, life alert button, and clothing. Packet sent with pt for [facility].
== END 2024-09-08 14:00 | disposition home or self-care (01) ==
LOC: ED 12:36 → AC 12:49
PROVIDERS: Emergency Medicine; Admitting Provider Internal Medicine; Emergency Provider Physician Assistant Medical; PCP Internal Medicine; Visit Provider Internal Medicine
DX: J12.1 Respiratory syncytial virus pneumonia (principal); R33.9 Retention of urine, unspecified; I50.22 Chronic systolic (congestive) heart failure; I10 Essential (primary) hypertension; E78.5 Hyperlipidemia, unspecified; I25.10 Atherosclerotic heart disease of native coronary artery without angina pectoris; I25.2 Old myocardial infarction; Z95.2 Presence of prosthetic heart valve; Z95.0 Presence of cardiac pacemaker; Z11.52 Encounter for screening for COVID-19
CPT/HCPCS: 0241U; 36415; 51798; 71045; 80053; 81001; 83605; 83880; 84484; 85025; 85610; 87040; 93005; 96365; 96372; 96375; 99284; 99285; G0378; J0696; J1650; J1940